=== PATIENT | female | born 1940 | race Caucasian/White ===

== ENCOUNTER 2018-01-22 16:02 | Inpatient (IN) ==
[2018-01-22] MEDS ORDERED: LACTATED RINGERS 1,000 ML IV ONE ×3 (16:13→18:13)
--- NOTE | 2018-01-22 16:18 | Emergency Department Note ---
General Adult HPI - General Chief complaint: Weakness Stated complaint: Fever, weakness, elevated BG Time Seen by Provider: 01/22/18 16:13 Source: patient Mode of arrival: EMS - History of Present Illness HPI Narrative: Patient has felt very weak with chills and low-grade temperature today. Denies nausea vomiting diarrhea cough or abdominal pain. - Related Data Home Medications Medication Instructions Recorded Confirmed Insulin Detemir [Levemir] 6 unit SQ HS 08/02/16 01/22/18 Pregabalin [Lyrica] 75 mg PO DAILY 08/02/16 01/22/18 glipiZIDE [Glucotrol] 5 mg PO BIDAC 08/02/16 01/22/18 metFORMIN HCL [Glumetza] 1,000 mg PO BID 08/02/16 01/22/18 Omeprazole [PriLOSEC] 20 mg PO DAILY 01/22/18 01/22/18 Allergies Allergy/AdvReac Type Severity Reaction Status Date / Time diphenhydramine AdvReac Intermediate Itching Verified 01/22/18 16:08 [From Benadryl] levofloxacin [From Levaquin] AdvReac Mild Confusion Verified 01/22/18 16:08 Sulfa (Sulfonamide AdvReac Mild ITCHING Verified 01/22/18 16:08 Antibiotics) [SULFA (SULFONAMIDE ANTIBIOTICS)] Review of Systems All systems ED: reviewed and negative except as stated. Past Medical History - Past Medical History [facility] Narrative: Medical History Cellulitis (Acute) Diabetic Charcot's foot (Acute) Diabetic ulcer of foot with fat layer exposed (Acute) Diabetic ulcer of foot with necrosis of muscle (Acute) Diabetic infection of left foot (Acute) Osteomyelitis of ankle or foot (Acute) Medical history: Reports: DM Surgical history ED: Reports: CHRISTOPHER/BSO, other (lumpectomy) - Social History smoking status: Never smoker Alcohol use: Reports: None Physical Exam Limitations: no limitations General appearance: alert Head: atraumatic Eye: Present: normal appearance ENT: normal exam Neck: Present: normal inspection Chest: Present: normal inspection Respiratory: Present: normal lung sounds bilaterally Cardiovascular: Present: regular rate, normal rhythm, normal heart sounds Abdominal: Present: soft. Absent: distention, tenderness Neurological: Present: alert Psychiatric: Present: normal affect, normal mood Skin: Present: warm, dry, intact Course Vital Signs Temperature 99.4 F H 01/22/18 16:03 Pulse Rate 110 H 01/22/18 16:03 Respiratory Rate 20 01/22/18 16:03 Blood Pressure 133/73 01/22/18 16:03 Pulse Oximetry (%) 96 01/22/18 16:03 Temperature 102.5 F H 01/23/18 06:02 Pulse Rate 104 H 01/23/18 06:02 Respiratory Rate 23 H 01/23/18 06:02 Blood Pressure 109/65 01/23/18 06:01 Pulse Oximetry (%) 94 01/23/18 06:02 Medical Decision Making - MDM Narrative Medical decision making narrative: This patient is worrisome for sepsis syndrome and will be admitted to the hospital. We did start antibiotics on her and did blood cultures. - Lab Data Lab results reviewed: Yes I reviewed the patient's lab results. Result diagrams: 01/23/18 03:45 01/22/18 19:48 Lab Results 01/22/18 01/22/18 01/22/18 Range/Units 16:27 16:27 16:27 WBC 8.7 (4.5-11.0) K/mcL RBC 4.69 (4.00-5.20) M/mcL Hgb 11.8 L (12.0-15.0) g/dL Hct 36.0 (36.0-48.0) % MCV 76.8 L (80.0-100.0) fL MCH 25.2 L (26.0-34.0) pg MCHC 32.8 (31.0-36.0) g/dL RDW 18.5 H (11.5-14.5) % Plt Count 120 L (140-440) K/mcL MPV 9.9 (7.4-10.4) fL Total Counted 100 Seg Neutrophils % 50 (38-78) % Band Neutrophils % 40 H (0-10) % Lymphocytes % 6 L (15-49) % Monocytes % (Manual) 4 (1-12) % WBC Morphology Abnorm A (NORMAL) Dohle Bodies 1+ A (NONE SEEN) Platelet Estimate Decreased (NORMAL) RBC Morphology Abnorm A (NORMAL) Anisocytosis 1+ A (NONE SEEN) Microcytosis 1+ A (NONE SEEN) VBG Lactic Acid (0.5-2.2) mmol/L Sodium 131 L (133-145) mmol/L Potassium 3.6 (3.3-5.1) mmol/L Chloride 88 L (96-108) mmol/L Carbon Dioxide 22 (22-30) mmol/L Anion Gap 21.0 H (8-16) BUN 25 H (8-23) mg/dl Creatinine 1.3 H (0.6-1.1) mg/dl GFR Calculation 40 Glucose 441 H (70-105) mg/dL Hemoglobin A1c (4.0-6.0) % HGB Estim Average Glucose mg/dL Calcium 8.9 (8.6-10.4) mg/dl Total Bilirubin 0.7 (0.0-1.0) mg/dL AST 86 H (0-37) U/l ALT 51 H (0-40) U/l Alkaline Phosphatase 100 (39-117) U/L Total Creatine Kinase (24-170) IU/L Total Protein 7.0 (5.9-8.4) gm/dL Albumin 3.9 (3.2-5.2) gm/dL Globulin 3.1 (2.2-3.7) gm/dL Albumin/Globulin Ratio 1.3 (1.0-2.3) Beta-Hydroxybutyrate 2.03 H (< 0.27) mmol/L Urine Color Urine Appearance Urine pH (5.0-9.0) Ur Specific Chaplin (1.000-1.035) Urine Protein (NEG) mg/dL Urine Glucose (UA) (NEG) mg/dL Urine Ketones (NEG) mg/dL Urine Occult Blood (<0.03) mg/dL Urine Nitrate (NEG) Urine Bilirubin (NEG) mg/dL Urine Urobilinogen (NEG) mg/dL Ur Leukocyte Esterase (NEG) /uL Urine RBC (0-1) /hpf Urine WBC (0-4) /hpf Ur Squamous Epith Cells (0-4) /hpf Ur Transition Epith Cell (0-2) /hpf Amorphous Crystals (0) /hpf Urine Bacteria (0) /hpf Hyaline Casts (0-2) /lpf Urine Mucus (0) /hpf Ur Culture Indicated? Influenza A (Rapid) Influenza B (Rapid) 01/22/18 01/22/18 01/22/18 Range/Units 16:27 16:27 16:30 WBC (4.5-11.0) K/mcL RBC (4.00-5.20) M/mcL Hgb (12.0-15.0) g/dL Hct (36.0-48.0) % MCV (80.0-100.0) fL MCH (26.0-34.0) pg MCHC (31.0-36.0) g/dL RDW (11.5-14.5) % Plt Count (140-440) K/mcL MPV (7.4-10.4) fL Total Counted Seg Neutrophils % (38-78) % Band Neutrophils % (0-10) % Lymphocytes % (15-49) % Monocytes % (Manual) (1-12) % WBC Morphology (NORMAL) Dohle Bodies (NONE SEEN) Platelet Estimate (NORMAL) RBC Morphology (NORMAL) Anisocytosis (NONE SEEN) Microcytosis (NONE SEEN) VBG Lactic Acid 6.7 H* (0.5-2.2) mmol/L Sodium (133-145) mmol/L Potassium (3.3-5.1) mmol/L Chloride (96-108) mmol/L Carbon Dioxide (22-30) mmol/L Anion Gap (8-16) BUN (8-23) mg/dl Creatinine (0.6-1.1) mg/dl GFR Calculation Glucose (70-105) mg/dL Hemoglobin A1c 8.5 H (4.0-6.0) % HGB Estim Average Glucose 197 mg/dL Calcium (8.6-10.4) mg/dl Total Bilirubin (0.0-1.0) mg/dL AST (0-37) U/l ALT (0-40) U/l Alkaline Phosphatase (39-117) U/L Total Creatine Kinase 2705 H (24-170) IU/L Total Protein (5.9-8.4) gm/dL Albumin (3.2-5.2) gm/dL Globulin (2.2-3.7) gm/dL Albumin/Globulin Ratio (1.0-2.3) Beta-Hydroxybutyrate (< 0.27) mmol/L Urine Color Urine Appearance Urine pH (5.0-9.0) Ur Specific Chaplin (1.000-1.035) Urine Protein (NEG) mg/dL Urine Glucose (UA) (NEG) mg/dL Urine Ketones (NEG) mg/dL Urine Occult Blood (<0.03) mg/dL Urine Nitrate (NEG) Urine Bilirubin (NEG) mg/dL Urine Urobilinogen (NEG) mg/dL Ur Leukocyte Esterase (NEG) /uL Urine RBC (0-1) /hpf Urine WBC (0-4) /hpf Ur Squamous Epith Cells (0-4) /hpf Ur Transition Epith Cell (0-2) /hpf Amorphous Crystals (0) /hpf Urine Bacteria (0) /hpf Hyaline Casts (0-2) /lpf Urine Mucus (0) /hpf Ur Culture Indicated? Influenza A (Rapid) Influenza B (Rapid) 01/22/18 01/22/18 Range/Units 16:30 16:36 WBC (4.5-11.0) K/mcL RBC (4.00-5.20) M/mcL Hgb (12.0-15.0) g/dL Hct (36.0-48.0) % MCV (80.0-100.0) fL MCH (26.0-34.0) pg MCHC (31.0-36.0) g/dL RDW (11.5-14.5) % Plt Count (140-440) K/mcL MPV (7.4-10.4) fL Total Counted Seg Neutrophils % (38-78) % Band Neutrophils % (0-10) % Lymphocytes % (15-49) % Monocytes % (Manual) (1-12) % WBC Morphology (NORMAL) Dohle Bodies (NONE SEEN) Platelet Estimate (NORMAL) RBC Morphology (NORMAL) Anisocytosis (NONE SEEN) Microcytosis (NONE SEEN) VBG Lactic Acid (0.5-2.2) mmol/L Sodium (133-145) mmol/L Potassium (3.3-5.1) mmol/L Chloride (96-108) mmol/L Carbon Dioxide (22-30) mmol/L Anion Gap (8-16) BUN (8-23) mg/dl Creatinine (0.6-1.1) mg/dl GFR Calculation Glucose (70-105) mg/dL Hemoglobin A1c (4.0-6.0) % HGB Estim Average Glucose mg/dL Calcium (8.6-10.4) mg/dl Total Bilirubin (0.0-1.0) mg/dL AST (0-37) U/l ALT (0-40) U/l Alkaline Phosphatase (39-117) U/L Total Creatine Kinase (24-170) IU/L Total Protein (5.9-8.4) gm/dL Albumin (3.2-5.2) gm/dL Globulin (2.2-3.7) gm/dL Albumin/Globulin Ratio (1.0-2.3) Beta-Hydroxybutyrate (< 0.27) mmol/L Urine Color Yellow Urine Appearance Hazy Urine pH 5.0 (5.0-9.0) Ur Specific Chaplin 1.023 (1.000-1.035) Urine Protein 30 A (NEG) mg/dL Urine Glucose (UA) >=500 A (NEG) mg/dL Urine Ketones 20 A (NEG) mg/dL Urine Occult Blood >=1.0 A (<0.03) mg/dL Urine Nitrate Neg (NEG) Urine Bilirubin Neg (NEG) mg/dL Urine Urobilinogen Neg (NEG) mg/dL Ur Leukocyte Esterase 25 A (NEG) /uL Urine RBC 2 H (0-1) /hpf Urine WBC 12 H (0-4) /hpf Ur Squamous Epith Cells 1 (0-4) /hpf Ur Transition Epith Cell 1 (0-2) /hpf Amorphous Crystals Few A (0) /hpf Urine Bacteria 0 (0) /hpf Hyaline Casts 2 (0-2) /lpf Urine Mucus Few (0) /hpf Ur Culture Indicated? Yes Influenza A (Rapid) Presumed negative Influenza B (Rapid) Presumed negative - Radiology Data Radiology results reviewed: Yes I reviewed the patient's radiology results. Disposition Pt seen by LAUNDRY AGENT/PA only: No Clinical Impression: Sepsis Disposition: Xfer As Inpt ([facility]) Condition: Undetermined
[2018-01-22 16:50] LABS: Mean Cell Volume 76.8 fL (80.0-100.0); Mean Corpuscular HGB Conc 32.8 g/dL (31.0-36.0); Mean Corpuscular Hemoglobin 25.2 pg (26.0-34.0); Platelet Count 120 K/mcL (140-440); RBC 4.69 M/mcL (4.00-5.20); Red Cell Distribution Width 18.5 % (11.5-14.5)
[2018-01-22] MEDS ORDERED: INSULIN REGULAR, HUMAN 1 UNIT/0.01 ML UNIT IV ONE ×2 (17:06→20:50)
[2018-01-22 17:10] LABS: ALT/SGPT 51 U/l (0-40); Albumin 3.9 gm/dL (3.2-5.2); Albumin/Globulin Ratio 1.3 (1.0-2.3); Alkaline Phosphatase 100 U/L (39-117); Blood Urea Nitrogen 25 mg/dl (8-23)
[2018-01-22] MEDS ORDERED: cefTRIAXone 1 GM VIAL IV ONE (17:26)
[2018-01-22] MEDS ORDERED: LEVOFLOXACIN 750 MG/150 ML BAG IV ONE (17:26)
[2018-01-22 17:30] LABS: Appearance,Urine HAZY; Bacteria,Urine 0 /hpf (0); Bilirubin,Urine NEG (NEG); Color,Urine YELLOW; Glucose,Urine (UA) >=500 mg/dL (NEG); Leukocyte Esterase,Urine 25 /uL (NEG); Mucus,Urine FEW /hpf (0); Protein,Urine 30 mg/dL (NEG); Specific Gravity,Urine 1.023 (1.000-1.035); Urine Amorphous Crystals FEW /hpf (0); Urine Blood >=1.0 mg/dL (<0.03); Urine Hyaline Cast 2 /lpf (0-2); Urine RBC 2 /hpf (0-1); Urine Squamous Epithelial Cell 1 /hpf (0-4); Urine Transitional Epi Cells 1 /hpf (0-2); Urine WBC 12 /hpf (0-4); Urobilinogen,Urine NEG (NEG)
[2018-01-22 17:31] LABS: Band Neutrophils % 40 % (0-10); Dohle Bodies 1+ (NONE SEEN); Lymphocytes % 6 % (15-49); Monocytes % (Manual) 4 % (1-12); Platelet Estimate DECREASED (NORMAL); Segmented Neutrophils % 50 % (38-78)
[2018-01-22 17:32] LABS: Anisocytosis 1+ (NONE SEEN); RBC Morphology ABNORM (NORMAL)
[2018-01-22] MEDS ORDERED: DOXYCYCLINE 100 MG in DEXTROSE 5% IN WATER 100 ML IV ONE (17:32)
[2018-01-22] MEDS ORDERED: DOXYCYCLINE 100 MG VIAL ONE (17:48)
[2018-01-22] MEDS ORDERED: ACETAMINOPHEN 325 MG TABLET PO ONE (17:49)
[2018-01-22 17:51] LABS: Beta Hydroxybutyrate 2.03 mmol/L (< 0.27)
[2018-01-22] MEDS ORDERED: VANCOMYCIN 1,000 MG in 0.9 % SODIUM CHLORIDE 250 ML IV ONE (18:11)
--- NOTE | 2018-01-22 18:19 | XRay Report ---
CLINICAL INFORMATION: Sepsis COMPARISON: 08/03/2016 FINDINGS: Moderate size hiatal hernia is unchanged. Mild cardiomegaly is also stable. Mediastinum is otherwise normal. Pulmonary vessels are unremarkable. There is minor bibasilar atelectasis, but no tamara infiltrates noted. No effusions IMPRESSION: Moderate cardiomegaly - stable Moderate size hiatal hernia - stable. Minor bibasilar atelectasis Interpreted and Authenticated by: Dash Morel 01/22/18
[2018-01-22] MEDS ORDERED: ACETAMINOPHEN 1,000 MG/100 ML BOTTLE IV PRN (19:07)
--- NOTE | 2018-01-22 19:18 | Internal Med History&Physical ---
Medical - H&P: [facility] Patient information: Note initiated : 01/22/18 at 7:15 pm Service Date, if different from initiated Date: [] Patient: Xenia Morgan a 77 y/o F admitted on for Fever, weakness, elevated BG. Chief Complaint: [weakness and general malaise] History of present illness: Ms. Morgan is a 77 year old F, with a history of DM, who presented by way of EMS with general malaise and after she found herself on the floor this morning, unable to get up on her own. She had been feeling sick for the last 3-4 days without any specific symptoms. She denies coughing, abdominal pain, dysuria, nausea, vomiting or change in bowel habits. She has a swelling and redness in the mid L-foot, which had been I&D'd before. Patient says that it has been a longstanding problem, and hasn't notice any change in swelling or pain. Patient is ill-appearing and somnolent. Unable to provide details. Doesn't remember how she fell and how long she had been on the floor. ED: CXR, blood cultures IVF Received Vanco, Doxycycline and Ceftriaxone - Constitutional Constitutional: Present: fatigue, lethargy, weakness - Cardiovascular Cardiovascular: Absent: chest pain, orthopnea, pedal edema - Respiratory Respiratory: Absent: cough, wheezing - Gastrointestinal Gastrointestinal: Absent: abdominal pain, diarrhea, heartburn - Genitourinary Genitourinary: Absent: urinary frequency - Integumentary Integumentary: Present: swelling (and redness L mid-foot) Medical - H&P: PMH Medical history: Medical History Diabetes Mellitus type 2 HTN HL Neuropathy Breastcancer, S/P lumpectomy R 2010 Uterine cancer Ischemic colitis Cellulitis (Acute) Diabetic Charcot's foot (Acute) Diabetic ulcer of foot with fat layer exposed (Acute) Diabetic ulcer of foot with necrosis of muscle (Acute) Diabetic infection of left foot (Acute) Osteomyelitis of ankle or foot (Acute) Surgical history: I&D left foot with biopsies Jul 2016 S/P lumpectomy for R breast cancer 2010 S/P amputation R first toe in 2013 for osteomyelitis Hysterectomy and salpingo-oophorectomy for uterine cancer 2002 Pertinent family history: Lives alone of cancer Has two children Smoking status: Never smoker Drug use: none Alcohol use: none Medical - H&P: Meds Home Medications Medication Instructions Recorded Confirmed Type Insulin Detemir [Levemir] 6 unit SQ HS 08/02/16 01/22/18 History Pregabalin [Lyrica] 75 mg PO DAILY 08/02/16 01/22/18 History glipiZIDE [Glucotrol] 5 mg PO BIDAC 08/02/16 01/22/18 History metFORMIN HCL [Glumetza] 1,000 mg PO BID 08/02/16 01/22/18 History Omeprazole [PriLOSEC] 20 mg PO DAILY 01/22/18 01/22/18 History Allergies Allergy/AdvReac Type Severity Reaction Status Date / Time diphenhydramine AdvReac Intermediate Itching Verified 01/22/18 16:08 [From Benadryl] levofloxacin [From Levaquin] AdvReac Mild Confusion Verified 01/22/18 16:08 Sulfa (Sulfonamide AdvReac Mild ITCHING Verified 01/22/18 16:08 Antibiotics) [SULFA (SULFONAMIDE ANTIBIOTICS)] Medical - H&P: Exam - Constitutional Vitals: Temp Pulse Resp BP Pulse Ox 104.0 F H 119 H 21 124/51 97 01/22/18 18:26 01/22/18 18:46 01/22/18 18:46 01/22/18 18:46 01/22/18 18:55 General appearance: mild distress (ill-appearing, somnolent) Medical - H&P: Reslt - Labs CBC & Chem 7: 01/22/18 16:27 01/22/18 16:27 Labs: Short CBC 01/22/18 Range/Units 16:27 WBC 8.7 (4.5-11.0) K/mcL Hgb 11.8 L (12.0-15.0) g/dL Hct 36.0 (36.0-48.0) % Plt Count 120 L (140-440) K/mcL BMP 01/22/18 16:27 Sodium 131 L Potassium 3.6 Chloride 88 L Carbon Dioxide 22 BUN 25 H Creatinine 1.3 H Glucose 441 H Calcium 8.9 Liver Function 01/22/18 Range/Units 16:27 Total Bilirubin 0.7 (0.0-1.0) mg/dL AST 86 H (0-37) U/l ALT 51 H (0-40) U/l Alkaline Phosphatase 100 (39-117) U/L Albumin 3.9 (3.2-5.2) gm/dL Urine 01/22/18 Range/Units 16:36 Urine Color Yellow Urine Appearance Hazy Urine pH 5.0 (5.0-9.0) Ur Specific Minerva 1.023 (1.000-1.035) Urine Protein 30 A (NEG) mg/dL Urine Glucose (UA) >=500 A (NEG) mg/dL Medical - H&P: A/P - Narrative A/P Narrative: 77-year-old with following problems: ACUTE: - Sepsis, likely from infected L foot - L mid-foot swelling and erythema Recurrent infections since 2016 (as per record) Last admission at [facility] 2015 - Diabetic Ketoacidosis CHRONIC: - Type 2 IDDM - Neuropathy - Hx of ischemic colitis - hx of breast cancer 2010 PLAN: - empiric Vancomycin and Ertapenem - Insulin gtt - IVF - MRI foot in am - consult podiatry in am - DVT prophylaxis: Lovenox Code status: FULL
[2018-01-22] MEDS ORDERED: ONDANSETRON 4 MG/2 ML VIAL IV PRN (19:26)
[2018-01-22] MEDS ORDERED: INSULIN REGULAR, HUMAN 50 UNIT in 0.9 % SODIUM CHLORIDE 100 ML IV SCH (19:26)
[2018-01-22] MEDS ORDERED: POTASSIUM CHLORIDE 20 MEQ in DEXTROSE 5% IN WATER 250 ML IV ONE (19:26)
[2018-01-22] MEDS ORDERED: VANCOMYCIN PER PHARMACY IV ONE (19:26)
[2018-01-22] MEDS ORDERED: POTASSIUM CHLORIDE 20 MEQ/10 ML VIAL IV ONE ×2 (20:01→22:25)
[2018-01-22] MEDS: 0.9 % SODIUM CHLORIDE 1,000 ML IV SCH (20:03)
[2018-01-22] MEDS: ERTAPENEM 1 GM in 0.9 % SODIUM CHLORIDE 50 ML IV SCH (20:04)
[2018-01-22] MEDS: ACETAMINOPHEN 1,000 MG/100 ML BOTTLE IV PRN (20:12)
[2018-01-22 20:47] LABS: Blood Urea Nitrogen 24 mg/dl (8-23); C-Reactive Protein 26.1 mg/dl (0.0-0.8)
[2018-01-22] MEDS ORDERED: DEXTROSE 31 GM ORAL.SUSP PO PRN (20:52)
[2018-01-22] MEDS ORDERED: DEXTROSE 50% 50 ML VIAL IV PRN (20:52)
[2018-01-22] MEDS ORDERED: INSULIN GLARGINE, HUMAN 1 UNIT/0.01 ML SQ SCH (21:00)
[2018-01-22] MEDS ORDERED: POTASSIUM CHLORIDE 40 MEQ in DEXTROSE 5% IN WATER 500 ML IV ONE (21:52)
[2018-01-22] MEDS: DOCUSATE SODIUM 100 MG CAPSULE PO SCH (22:09)
[2018-01-22] MEDS: 0.9 % SODIUM CHLORIDE 10 ML SYRINGE IV SCH (22:20)
[2018-01-22] MEDS ORDERED: 0.9 % SODIUM CHLORIDE 250 ML IV ONE (23:20)
[2018-01-23 00:04] LABS: Hemoglobin A1C 8.5 % HGB (4.0-6.0)
[2018-01-23] MEDS: INSULIN LISPRO 1 UNIT/0.01 ML UNIT SQ SCH ×6 (00:50→20:56)
[2018-01-23] MEDS: 0.9 % SODIUM CHLORIDE 1,000 ML IV SCH ×6 (03:07→22:27)
[2018-01-23] MEDS: ACETAMINOPHEN 1,000 MG/100 ML BOTTLE IV PRN ×2 (03:50→17:52)
[2018-01-23] MEDS: 0.9 % SODIUM CHLORIDE 10 ML SYRINGE IV SCH ×3 (05:39→21:48)
[2018-01-23] MEDS ORDERED: VANCOMYCIN PER PHARMACY IV SCH (06:45)
[2018-01-23 06:46] LABS: Mean Cell Volume 77.1 fL (80.0-100.0); Mean Corpuscular HGB Conc 32.9 g/dL (31.0-36.0); Mean Corpuscular Hemoglobin 25.4 pg (26.0-34.0); Platelet Count 81 K/mcL (140-440); RBC 3.99 M/mcL (4.00-5.20); Red Cell Distribution Width 18.2 % (11.5-14.5)
[2018-01-23] MEDS ORDERED: MAGNESIUM SULFATE 8.12 MEQ/2 ML VIAL IV ONE (07:05)
[2018-01-23] MEDS ORDERED: MAGNESIUM SULFATE 32.48 MEQ in DEXTROSE 5% IN WATER 100 ML IV ONE (07:15)
[2018-01-23 07:36] LABS: ALT/SGPT 51 U/l (0-40); Albumin 2.9 gm/dL (3.2-5.2); Albumin/Globulin Ratio 1.1 (1.0-2.3); Alkaline Phosphatase 83 U/L (39-117); Bilirubin,Direct < 0.2 mg/dL (0.0-0.3); Blood Urea Nitrogen 22 mg/dl (8-23); Gamma Glutamyl Transpeptidase 16 U/L (5-36); Uric Acid 5.3 mg/dL (2.5-8.0)
[2018-01-23 08:07] LABS: Anisocytosis 1+ (NONE SEEN); Band Neutrophils % 47 % (0-10); Hypochromasia 1+ (NONE SEEN); Lymphocytes % 6 % (15-49); Monocytes % (Manual) 2 % (1-12); Platelet Estimate DECREASED (NORMAL); RBC Morphology ABNORM (NORMAL); Segmented Neutrophils % 45 % (38-78)
[2018-01-23] MEDS: POTASSIUM CHLORIDE 20 MEQ TABLET PO SCH ×2 (08:54→17:49)
[2018-01-23] MEDS: VANCOMYCIN 1,000 MG in 0.9 % SODIUM CHLORIDE 250 ML IV SCH (09:42)
[2018-01-23] MEDS: PREGABALIN 75 MG CAPSULE PO SCH ×3 (09:42→21:48)
[2018-01-23] MEDS: ERTAPENEM 1 GM in 0.9 % SODIUM CHLORIDE 50 ML IV SCH (09:43)
[2018-01-23] MEDS: DOCUSATE SODIUM 100 MG CAPSULE PO SCH ×3 (09:45→20:56)
[2018-01-23] MEDS: PANTOPRAZOLE 40 MG VIAL IV SCH (09:46)
[2018-01-23] MEDS: ENOXAPARIN 40 MG/0.4 ML SYRINGE SQ SCH (09:46)
--- NOTE | 2018-01-23 15:27 | Internal Med Progress Note ---
Medical - PN: Subj Patient information: Note initiated : 01/23/18 at 3:14 pm Service Date, if different from initiated Date: [] Patient: Xenia Morgan 77 y/o F admitted on 01/22/18 for Fever,Weakness, Elevated BG/Sepsis,Infected L Foot. Interval history: 01/22: Admitted with the following problems: ACUTE: - Sepsis, likely from infected L foot - L mid-foot swelling and erythema Recurrent infections since 2016 (as per record) Last admission at [facility] 2016 - Diabetic Ketoacidosis CHRONIC: - Type 2 IDDM - Neuropathy - Hx of ischemic colitis - hx of breast cancer 2010 PLAN: - empiric Vancomycin and Ertapenem - Insulin gtt - IVF - MRI foot in am - consult podiatry in am - DVT prophylaxis: Lovenox 01/23: T max 101 SBP > 100, but tachycardic 110's Patient appears ill. D/w dr Donis Escobar (podiatry): recommended removal of sutures. [place] and unable to see patient. MRI foot; c/w osteomyelitis. Previous wound culture (2015) showed strep viridans, enterococcus and coag neg staph. Will switch Ertapenem with Zosyn - Constitutional Vitals: Vital Signs Temp Pulse Resp BP Pulse Ox 100.4 F H 90 25 H 104/55 98 01/23/18 14:05 01/23/18 14:05 01/23/18 14:05 01/23/18 14:01 01/23/18 14:05 Period Temp Pulse Resp BP Sys/Guzman Pulse Ox Last 24 Hr 98.3 F-104.0 F 83-143 0-34 70-174/41-108 90-100 Intake and Output 01/23/18 01/23/18 01/23/18 05:59 13:59 21:59 Intake Total 1350 / 1350 1050 / 1050 Output Total 1240 / 1240 630 / 630 0 / 0 Balance 110 / 110 420 / 420 0 / 0 Weight 179 lb 8 oz Patient Weight 01/24/18 05:59 Weight 179 lb 8 oz Intake & Output: Intake & Output 01/23/18 01/23/18 01/23/18 05:59 13:59 21:59 Intake Total 1350 / 1350 1050 / 1050 Output Total 1240 / 1240 630 / 630 0 / 0 Balance 110 / 110 420 / 420 0 / 0 Weight 179 lb 8 oz Intake: IV 1350 / 1350 1050 / 1050 Sodium Chloride 0.9% 1,000 ml @ 1000 / 1000 1000 / 1000 150 mls/hr IV .Q6H40M [facility] Rx#: [id number] Sodium Chloride 0.9% 250 ml @ 250 / 250 Wide Open IV BOLUS ONE Rx#: [id number] INVanz 1 GM In Sodium Chloride 50 / 50 0.9% 50 ml @ 100 mls/hr IV Q24H [facility] Rx#:[id number] Output: Urine Catheter Amount 1240 / 1240 630 / 630 0 / 0 Other: Meal Lunch Percent of Meal Consumed 25% Feeding Ability Assist with Tray Set Up Exam: Ill -appearing - Respiratory Respiratory exam: Present: normal respiratory exam - Cardiovascular Cardiovascular exam: Present: normal rate and rhythm - GI/Abdominal GI/Abdominal exam: Present: normal bowel sounds, soft (Redness and swelling L mid foot. No drainage) Medical - PN: Obj Da - Labs CBC & Chem 7: 01/23/18 03:45 01/23/18 07:00 Labs: Abnormal Lab Results 01/23/18 01/23/18 01/23/18 07:00 03:45 03:45 RBC Hgb Hct MCV MCH RDW Plt Count MPV Band Neutrophils % Lymphocytes % WBC Morphology Dohle Bodies RBC Morphology Hypochromasia Anisocytosis Microcytosis VBG Lactic Acid Sodium Potassium Chloride Carbon Dioxide 20 L Anion Gap BUN Creatinine Glucose 271 H Hemoglobin A1c Calcium 8.0 L Phosphorus 2.0 L Magnesium 1.3 L AST 117 H ALT 51 H Lactate Dehydrogenase 550 H Total Creatine Kinase 3735 H C-Reactive Protein Total Protein 5.5 L Albumin 2.9 L Beta-Hydroxybutyrate 0.49 H Urine Protein Urine Glucose (UA) Urine Ketones Urine Occult Blood Ur Leukocyte Esterase Urine RBC Urine WBC Amorphous Crystals 01/23/18 01/23/18 01/22/18 03:45 03:45 19:48 RBC 3.99 L Hgb 10.1 L Hct 30.7 L MCV 77.1 L MCH 25.4 L RDW 18.2 H Plt Count 81 L MPV 10.5 H Band Neutrophils % 47 H Lymphocytes % 6 L WBC Morphology Dohle Bodies RBC Morphology Abnorm A Hypochromasia 1+ A Anisocytosis 1+ A Microcytosis 1+ A VBG Lactic Acid Sodium 132 L Potassium 3.0 L Chloride 93 L Carbon Dioxide Anion Gap 17.0 H BUN 24 H Creatinine 1.2 H Glucose 322 H Hemoglobin A1c Calcium 8.2 L Phosphorus Magnesium 1.4 L AST ALT Lactate Dehydrogenase Total Creatine Kinase C-Reactive Protein 26.1 H Total Protein Albumin Beta-Hydroxybutyrate Urine Protein Urine Glucose (UA) Urine Ketones Urine Occult Blood Ur Leukocyte Esterase Urine RBC Urine WBC Amorphous Crystals 01/22/18 01/22/18 01/22/18 16:36 16:30 16:27 RBC Hgb Hct MCV MCH RDW Plt Count MPV Band Neutrophils % Lymphocytes % WBC Morphology Dohle Bodies RBC Morphology Hypochromasia Anisocytosis Microcytosis VBG Lactic Acid 6.7 H* Sodium Potassium Chloride Carbon Dioxide Anion Gap BUN Creatinine Glucose Hemoglobin A1c 8.5 H Calcium Phosphorus Magnesium AST ALT Lactate Dehydrogenase Total Creatine Kinase C-Reactive Protein Total Protein Albumin Beta-Hydroxybutyrate Urine Protein 30 A Urine Glucose (UA) >=500 A Urine Ketones 20 A Urine Occult Blood >=1.0 A Ur Leukocyte Esterase 25 A Urine RBC 2 H Urine WBC 12 H Amorphous Crystals Few A 01/22/18 01/22/18 01/22/18 16:27 16:27 16:27 RBC Hgb Hct MCV MCH RDW Plt Count MPV Band Neutrophils % Lymphocytes % WBC Morphology Dohle Bodies RBC Morphology Hypochromasia Anisocytosis Microcytosis VBG Lactic Acid Sodium 131 L Potassium Chloride 88 L Carbon Dioxide Anion Gap 21.0 H BUN 25 H Creatinine 1.3 H Glucose 441 H Hemoglobin A1c Calcium Phosphorus Magnesium AST 86 H ALT 51 H Lactate Dehydrogenase Total Creatine Kinase 2705 H C-Reactive Protein Total Protein Albumin Beta-Hydroxybutyrate 2.03 H Urine Protein Urine Glucose (UA) Urine Ketones Urine Occult Blood Ur Leukocyte Esterase Urine RBC Urine WBC Amorphous Crystals 01/22/18 16:27 RBC Hgb 11.8 L Hct MCV 76.8 L MCH 25.2 L RDW 18.5 H Plt Count 120 L MPV Band Neutrophils % 40 H Lymphocytes % 6 L WBC Morphology Abnorm A Dohle Bodies 1+ A RBC Morphology Abnorm A Hypochromasia Anisocytosis 1+ A Microcytosis 1+ A VBG Lactic Acid Sodium Potassium Chloride Carbon Dioxide Anion Gap BUN Creatinine Glucose Hemoglobin A1c Calcium Phosphorus Magnesium AST ALT Lactate Dehydrogenase Total Creatine Kinase C-Reactive Protein Total Protein Albumin Beta-Hydroxybutyrate Urine Protein Urine Glucose (UA) Urine Ketones Urine Occult Blood Ur Leukocyte Esterase Urine RBC Urine WBC Amorphous Crystals Meds: Medications Dextrose (Dextrose 50%) 0 ml IV UD PRN PRN Reason: Hypoglycemia Diagnostic Test (Pha) (Accu-Chek) 1 each FS ACHS [facility] Last Admin: 01/23/18 11:39 Dose: 1 each Docusate Sodium (Colace) 100 mg PO BID [facility] Last Admin: 01/23/18 10:11 Dose: Not Given Enoxaparin Sodium (Lovenox) 40 mg SQ DAILY [facility] Last Admin: 01/23/18 09:46 Dose: 40 mg Glucose (Insta-Glucose) 15 gm PO PRN PRN PRN Reason: Hypoglycemia Ertapenem 1 gm/ Sodium (Chloride) 50 mls @ 100 mls/hr IV Q24H [facility] Last Infusion: 01/23/18 10:15 Dose: Infused Acetaminophen (Ofirmev) 1,000 mg in 100 mls @ 200 mls/hr IV Q6HP PRN PRN Reason: PAIN/FEVER > 101 Last Infusion: 01/23/18 04:20 Dose: Infused Sodium Chloride (Sodium Chloride 0.9%) 1,000 mls @ 150 mls/hr IV .Q6H40M [facility] Last Admin: 01/23/18 14:05 Dose: Not Given Vancomycin HCl 1,000 mg/ (Sodium Chloride) 250 mls @ 250 mls/hr IV Q24H [facility] Last Admin: 01/23/18 09:42 Dose: 250 mls/hr Insulin Glargine (Lantus) 20 unit SQ HS [facility] Insulin Human Lispro (Humalog) 0 unit SQ Q4 [facility] PRN Reason: Protocol Last Admin: 01/23/18 12:41 Dose: 3 unit Ondansetron HCl (Zofran) 4 mg IV Q4-6HP PRN PRN Reason: Nausea And Vomiting Pantoprazole Sodium (Protonix) 40 mg IV DAILY [facility] Last Admin: 01/23/18 09:46 Dose: 40 mg Potassium Chloride (Kdur) 20 meq PO BIDCC [facility] Last Admin: 01/23/18 08:54 Dose: Not Given Pregabalin (Lyrica) 75 mg PO DAILY [facility] Last Admin: 01/23/18 10:15 Dose: Not Given Sodium Chloride (Saline Flush) 10 ml IV Q8 [facility] Last Admin: 01/23/18 14:07 Dose: 10 ml Vancomycin HCl (Vancomycin Per Pharmacy) 1 order IV UD [facility] Medical - PN: A/P - Time Spent With Patient Total time spent is greater than 50% in coordination of care (as documented) at patient's floor/unit and/or counseling patient: - Narrative A/P Narrative: A/P Narrative: 77-year-old with following problems: ACUTE: - Sepsis, likely from infected L foot Blood cultures: strep. Identification and sens pending. Grew enterococcus and post str in 2016. Not sens to imipenem 01/22: VAnco and Ertapenem 01/23: will switch to Vanco and Zosyn - L mid-foot swelling and erythema Recurrent infections since 2016 (as per record) Last admission at [facility] 01/23: d/w dr Chilango Escobar: remove sutures. [place] available for consult [place]. MRI confirms diagnosis of osteomyelitis. - Diabetic Ketoacidosis Improved BS control CHRONIC: - Type 2 IDDM - Neuropathy - Hx of ischemic colitis - hx of breast cancer 2010 Medical - PN: Qual - VTE Deep Vein Thrombosis/Pulmonary Embolism Present on Admission: No
--- NOTE | 2018-01-23 18:17 | Magnetic Resonance Report ---
CLINICAL INFORMATION: Osteomyelitis COMPARISON: For MRI from 1.5 years ago - 08/12/2016 TECHNIQUE: Exam is limited due to excessive patient motion uncooperation: Axial T1 proton density T2 sagittal T1 proton density and coronal density images were acquired FINDINGS: Since the prior study, the marrow signal within the fifth metatarsal, proximal fourth metatarsal, lateral cuboid and lateral cuneiform is normalized compatible with healing infection.. On today's examination, there is increased intramedullary signal within the distal tibia-fibula and throughout most of the talus suggesting additional foci of osteomyelitis. A large ankle effusion with a moderate moderate amount of debris has developed. There is a large amount of fluid within the tendon sheaths of the posterior tibialis, flexor digitorum and flexor hallucis tendons themselves appear normal however. There is loss of plantar arch from disruption of the spring ligament which is chronic Interval normalization of the signal within the proximal fourth metatarsal, fifth metatarsal, lateral cuboid and cuneiform suggesting healing infection in these regions. Scattered cysts present throughout the midfoot and proximal metatarsals - previously seen IMPRESSION: 1. Moderate increased intramedullary signal within the distal tibia, fibula and throughout most of the talus suggesting multifocal osteomyelitis. 2. New large ankle effusion effusion with scattered debris suggesting septic arthritis. 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
[2018-01-23] MEDS: PIPERACILLIN SODIUM/TAZOBACTAM 3.375 GM in DEXTROSE 5% IN WATER 50 ML IV SCH (20:25)
[2018-01-23 20:41] LABS: ABG Methemoglobin 0.3 % (0.4-1.5); VBG Base Excess -0.8 (-2.0-2.0); VBG HCO3 22.3 mmol/L (24.0-28.0); VBG Oxygen Saturation 94.8 % (40.0-70.0); VBG PCO2 31.3 mmHg (41.0-51.0); VBG PH 7.47 U (7.32-7.42); VBG PO2 105 mmHg (25-40); VBG Total CO2 23.3 mmol/L (25.0-29.0)
[2018-01-23] MEDS: INSULIN GLARGINE, HUMAN 1 UNIT/0.01 ML SQ SCH (20:55)
[2018-01-24] MEDS: PIPERACILLIN SODIUM/TAZOBACTAM 3.375 GM in DEXTROSE 5% IN WATER 50 ML IV SCH ×4 (00:13→17:39)
[2018-01-24] MEDS: INSULIN LISPRO 1 UNIT/0.01 ML UNIT SQ SCH ×7 (00:24→21:53)
[2018-01-24] MEDS: 0.9 % SODIUM CHLORIDE 1,000 ML IV SCH (05:16)
[2018-01-24] MEDS: 0.9 % SODIUM CHLORIDE 10 ML SYRINGE IV SCH ×3 (05:16→21:54)
[2018-01-24 06:16] LABS: ALT/SGPT 59 U/l (0-40); Albumin 2.7 gm/dL (3.2-5.2); Alkaline Phosphatase 82 U/L (39-117); Bilirubin,Direct < 0.2 mg/dL (0.0-0.3); Blood Urea Nitrogen 20 mg/dl (8-23); Gamma Glutamyl Transpeptidase 14 U/L (5-36); Uric Acid 3.4 mg/dL (2.5-8.0)
[2018-01-24 07:24] LABS: Mean Cell Volume 77.8 fL (80.0-100.0); Mean Corpuscular HGB Conc 32.5 g/dL (31.0-36.0); Mean Corpuscular Hemoglobin 25.3 pg (26.0-34.0); Platelet Count 80 K/mcL (140-440); RBC 4.28 M/mcL (4.00-5.20); Red Cell Distribution Width 18.6 % (11.5-14.5)
[2018-01-24 07:31] LABS: Anisocytosis 1+ (NONE SEEN); Band Neutrophils % 28 % (0-10); Hypochromasia 1+ (NONE SEEN); Lymphocytes % 4 % (15-49); Monocytes % (Manual) 6 % (1-12); Platelet Estimate DECREASED (NORMAL); RBC Morphology ABNORM (NORMAL); Segmented Neutrophils % 62 % (38-78)
[2018-01-24] MEDS: PREGABALIN 75 MG CAPSULE PO SCH (09:09)
[2018-01-24] MEDS: PANTOPRAZOLE 40 MG VIAL IV SCH (09:15)
[2018-01-24] MEDS: DOCUSATE SODIUM 100 MG CAPSULE PO SCH ×2 (09:15→21:53)
[2018-01-24] MEDS: POTASSIUM CHLORIDE 20 MEQ TABLET PO SCH ×2 (09:15→17:34)
[2018-01-24] MEDS: ENOXAPARIN 40 MG/0.4 ML SYRINGE SQ SCH (09:15)
[2018-01-24] MEDS: VANCOMYCIN 1,000 MG in 0.9 % SODIUM CHLORIDE 250 ML IV SCH ×3 (11:25→21:53)
[2018-01-24] MEDS: ACETAMINOPHEN 1,000 MG/100 ML BOTTLE IV PRN (17:34)
[2018-01-24] MEDS ORDERED: PANTOPRAZOLE 40 MG TABLET PO SCH (21:00)
[2018-01-24] MEDS ORDERED: PREGABALIN 75 MG CAPSULE PO SCH (21:00)
[2018-01-24] MEDS: INSULIN GLARGINE, HUMAN 1 UNIT/0.01 ML SQ SCH (21:52)
[2018-01-24] MEDS ORDERED: LORazepam 1 MG TABLET PO PRN (22:49)
[2018-01-24] MEDS ORDERED: LORazepam 1 MG TABLET ONE (23:00)
[2018-01-25] MEDS: PIPERACILLIN SODIUM/TAZOBACTAM 3.375 GM in DEXTROSE 5% IN WATER 50 ML IV SCH ×5 (00:07→17:14)
--- NOTE | 2018-01-25 00:28 | Internal Med Progress Note ---
Medical - PN: Subj Patient information: Note initiated : 01/25/18 at 12:23 am Service Date, if different from initiated Date: [01/24 at 11:00] Patient: Xenia Morgan 77 y/o F admitted on 01/22/18 for Fever,Weakness, Elevated BG/Sepsis,Infected L Foot. Chief Complaint: [general malaise and fever] Interval history: 01/22: Admitted with the following problems: ACUTE: - Sepsis, likely from infected L foot - L mid-foot swelling and erythema Recurrent infections since 2015 (as per record) Last admission at [facility] 2015 - Diabetic Ketoacidosis CHRONIC: - Type 2 IDDM - Neuropathy - Hx of ischemic colitis - hx of breast cancer 2010 PLAN: - empiric Vancomycin and Ertapenem - Insulin gtt - IVF - MRI foot in am - consult podiatry in am - DVT prophylaxis: Lovenox 01/23: T max 101 SBP > 100, but tachycardic 110's Patient appears ill. D/w dr Donis Escobar (podiatry): recommended removal of sutures. [place] and unable to see patient. MRI foot; c/w osteomyelitis. Previous wound culture (2015) showed strep viridans, enterococcus and coag neg staph. Will switch Ertapenem with Zosyn 01/24: Patient is still weak, but feeling better. Afebrile overnight. Still soft BP. Eating now. Appreciate Kendy Suarez help with debridement of L foot, and discussing case with dr Escobar. Case d/w Dru De Luna (ID): agrees with Vancomycin and Zosyn till identif and sens determined. - Constitutional Vitals: Vital Signs Temp Pulse Resp BP Pulse Ox 96.9 F L 80 24 H 111/56 95 01/24/18 21:52 01/25/18 00:01 01/25/18 00:01 01/25/18 00:01 01/25/18 00:01 Period Temp Pulse Resp BP Sys/Guzman Pulse Ox Last 24 Hr 96.9 F-102 F 80-114 20-34 84-131/53-93 88-99 Intake and Output 01/24/18 01/24/18 01/25/18 13:59 21:59 05:59 Intake Total 317 / 317 230 / 230 Output Total 285 / 285 325 / 325 260 / 260 Balance 32 / 32 -95 / -95 -260 / -260 Weight 188 lb 8 oz Patient Weight 01/25/18 05:59 Weight 188 lb 8 oz Intake & Output: Intake & Output 01/24/18 01/24/18 01/25/18 13:59 21:59 05:59 Intake Total 317 / 317 230 / 230 Output Total 285 / 285 325 / 325 260 / 260 Balance 32 / 32 -95 / -95 -260 / -260 Weight 188 lb 8 oz Intake: IV 317 / 317 50 / 50 Zosyn 3.375 gm In Dextrose 5% 67 / 67 50 / 50 in Water 50 ml @ 100 mls/hr IV Q6H [facility] Rx#:[id number] Vancomycin 1,000 mg In Sodium 250 / 250 Chloride 0.9% 250 ml @ 250 mls/ hr IV Q12H [facility] Rx#:[id number] Oral 180 / 180 Output: Urine Catheter Amount 285 / 285 325 / 325 260 / 260 Other: Meal Dinner Percent of Meal Consumed 25% Feeding Ability Assist with Tray Set Up General appearance: no acute distress - Respiratory Respiratory exam: Present: decreased breath sounds - Cardiovascular Cardiovascular exam: Present: normal rate and rhythm - GI/Abdominal GI/Abdominal exam: Present: normal bowel sounds, soft - Extremities Exam Additional comments: L foot less erythematous. Wound without drainage Medical - PN: Obj Da - Labs CBC & Chem 7: 01/24/18 03:55 01/24/18 03:55 Labs: Abnormal Lab Results 01/24/18 01/24/18 01/23/18 03:55 03:55 20:11 RBC Hgb 10.8 L Hct 33.3 L MCV 77.8 L MCH 25.3 L RDW 18.6 H Plt Count 80 L MPV 11.3 H Band Neutrophils % 28 H Lymphocytes % 4 L WBC Morphology Dohle Bodies RBC Morphology Abnorm A Hypochromasia 1+ A Anisocytosis 1+ A Microcytosis 1+ A ABG Methemoglobin 0.3 L VBG pH 7.47 H VBG pCO2 31.3 L VBG pO2 105 H VBG HCO3 22.3 L VBG Total CO2 23.3 L VBG O2 Saturation 94.8 H VBG Lactic Acid Carboxyhemoglobin 3.2 H Total Hemoglobin 9.5 L Sodium Potassium Chloride Carbon Dioxide Anion Gap BUN Creatinine Glucose 157 H Hemoglobin A1c Calcium 8.0 L Phosphorus 1.5 L Magnesium AST 103 H ALT 59 H Lactate Dehydrogenase 458 H Total Creatine Kinase C-Reactive Protein Total Protein 5.3 L Albumin 2.7 L Triglycerides 168 H Beta-Hydroxybutyrate Urine Protein Urine Glucose (UA) Urine Ketones Urine Occult Blood Ur Leukocyte Esterase Urine RBC Urine WBC Amorphous Crystals 01/23/18 01/23/18 01/23/18 07:00 03:45 03:45 RBC Hgb Hct MCV MCH RDW Plt Count MPV Band Neutrophils % Lymphocytes % WBC Morphology Dohle Bodies RBC Morphology Hypochromasia Anisocytosis Microcytosis ABG Methemoglobin VBG pH VBG pCO2 VBG pO2 VBG HCO3 VBG Total CO2 VBG O2 Saturation VBG Lactic Acid Carboxyhemoglobin Total Hemoglobin Sodium Potassium Chloride Carbon Dioxide 20 L Anion Gap BUN Creatinine Glucose 271 H Hemoglobin A1c Calcium 8.0 L Phosphorus 2.0 L Magnesium 1.3 L AST 117 H ALT 51 H Lactate Dehydrogenase 550 H Total Creatine Kinase 3735 H C-Reactive Protein Total Protein 5.5 L Albumin 2.9 L Triglycerides Beta-Hydroxybutyrate 0.49 H Urine Protein Urine Glucose (UA) Urine Ketones Urine Occult Blood Ur Leukocyte Esterase Urine RBC Urine WBC Amorphous Crystals 01/23/18 01/23/18 01/22/18 03:45 03:45 19:48 RBC 3.99 L Hgb 10.1 L Hct 30.7 L MCV 77.1 L MCH 25.4 L RDW 18.2 H Plt Count 81 L MPV 10.5 H Band Neutrophils % 47 H Lymphocytes % 6 L WBC Morphology Dohle Bodies RBC Morphology Abnorm A Hypochromasia 1+ A Anisocytosis 1+ A Microcytosis 1+ A ABG Methemoglobin VBG pH VBG pCO2 VBG pO2 VBG HCO3 VBG Total CO2 VBG O2 Saturation VBG Lactic Acid Carboxyhemoglobin Total Hemoglobin Sodium 132 L Potassium 3.0 L Chloride 93 L Carbon Dioxide Anion Gap 17.0 H BUN 24 H Creatinine 1.2 H Glucose 322 H Hemoglobin A1c Calcium 8.2 L Phosphorus Magnesium 1.4 L AST ALT Lactate Dehydrogenase Total Creatine Kinase C-Reactive Protein 26.1 H Total Protein Albumin Triglycerides Beta-Hydroxybutyrate Urine Protein Urine Glucose (UA) Urine Ketones Urine Occult Blood Ur Leukocyte Esterase Urine RBC Urine WBC Amorphous Crystals 01/22/18 01/22/18 01/22/18 16:36 16:30 16:27 RBC Hgb Hct MCV MCH RDW Plt Count MPV Band Neutrophils % Lymphocytes % WBC Morphology Dohle Bodies RBC Morphology Hypochromasia Anisocytosis Microcytosis ABG Methemoglobin VBG pH VBG pCO2 VBG pO2 VBG HCO3 VBG Total CO2 VBG O2 Saturation VBG Lactic Acid 6.7 H* Carboxyhemoglobin Total Hemoglobin Sodium Potassium Chloride Carbon Dioxide Anion Gap BUN Creatinine Glucose Hemoglobin A1c 8.5 H Calcium Phosphorus Magnesium AST ALT Lactate Dehydrogenase Total Creatine Kinase C-Reactive Protein Total Protein Albumin Triglycerides Beta-Hydroxybutyrate Urine Protein 30 A Urine Glucose (UA) >=500 A Urine Ketones 20 A Urine Occult Blood >=1.0 A Ur Leukocyte Esterase 25 A Urine RBC 2 H Urine WBC 12 H Amorphous Crystals Few A 01/22/18 01/22/18 01/22/18 16:27 16:27 16:27 RBC Hgb Hct MCV MCH RDW Plt Count MPV Band Neutrophils % Lymphocytes % WBC Morphology Dohle Bodies RBC Morphology Hypochromasia Anisocytosis Microcytosis ABG Methemoglobin VBG pH VBG pCO2 VBG pO2 VBG HCO3 VBG Total CO2 VBG O2 Saturation VBG Lactic Acid Carboxyhemoglobin Total Hemoglobin Sodium 131 L Potassium Chloride 88 L Carbon Dioxide Anion Gap 21.0 H BUN 25 H Creatinine 1.3 H Glucose 441 H Hemoglobin A1c Calcium Phosphorus Magnesium AST 86 H ALT 51 H Lactate Dehydrogenase Total Creatine Kinase 2705 H C-Reactive Protein Total Protein Albumin Triglycerides Beta-Hydroxybutyrate 2.03 H Urine Protein Urine Glucose (UA) Urine Ketones Urine Occult Blood Ur Leukocyte Esterase Urine RBC Urine WBC Amorphous Crystals 01/22/18 16:27 RBC Hgb 11.8 L Hct MCV 76.8 L MCH 25.2 L RDW 18.5 H Plt Count 120 L MPV Band Neutrophils % 40 H Lymphocytes % 6 L WBC Morphology Abnorm A Dohle Bodies 1+ A RBC Morphology Abnorm A Hypochromasia Anisocytosis 1+ A Microcytosis 1+ A ABG Methemoglobin VBG pH VBG pCO2 VBG pO2 VBG HCO3 VBG Total CO2 VBG O2 Saturation VBG Lactic Acid Carboxyhemoglobin Total Hemoglobin Sodium Potassium Chloride Carbon Dioxide Anion Gap BUN Creatinine Glucose Hemoglobin A1c Calcium Phosphorus Magnesium AST ALT Lactate Dehydrogenase Total Creatine Kinase C-Reactive Protein Total Protein Albumin Triglycerides Beta-Hydroxybutyrate Urine Protein Urine Glucose (UA) Urine Ketones Urine Occult Blood Ur Leukocyte Esterase Urine RBC Urine WBC Amorphous Crystals Meds: Medications Dextrose (Dextrose 50%) 0 ml IV UD PRN PRN Reason: Hypoglycemia Diagnostic Test (Pha) (Accu-Chek) 1 each FS ACHS [facility] Last Admin: 01/24/18 21:52 Dose: 1 each Docusate Sodium (Colace) 100 mg PO BID [facility] Last Admin: 01/24/18 21:53 Dose: 100 mg Enoxaparin Sodium (Lovenox) 40 mg SQ DAILY [facility] Last Admin: 01/24/18 09:15 Dose: 40 mg Glucose (Insta-Glucose) 15 gm PO PRN PRN PRN Reason: Hypoglycemia Acetaminophen (Ofirmev) 1,000 mg in 100 mls @ 200 mls/hr IV Q6HP PRN PRN Reason: PAIN/FEVER > 101 Last Admin: 01/24/18 17:34 Dose: 200 mls/hr Piperacillin Sod/Tazobactam (Sod 3.375 gm/ Dextrose) 50 mls @ 100 mls/hr IV Q6H [facility] Last Admin: 01/25/18 00:07 Dose: 100 mls/hr Vancomycin HCl 1,000 mg/ (Sodium Chloride) 250 mls @ 250 mls/hr IV Q12H [facility] Last Admin: 01/24/18 21:53 Dose: 250 mls/hr Insulin Glargine (Lantus) 20 unit SQ [facility] Last Admin: 01/24/18 21:52 Dose: 20 unit Insulin Human Lispro (Humalog) 0 unit SQ [facility] PRN Reason: Protocol Last Admin: 01/24/18 21:53 Dose: 8 unit Lorazepam (Ativan) 1 mg PO Q8HP PRN PRN Reason: ANXIETY/SEDATION Ondansetron HCl (Zofran) 4 mg IV Q4-6HP PRN PRN Reason: Nausea And Vomiting Pantoprazole Sodium (Protonix) 40 mg PO [facility] Last Admin: 01/24/18 21:53 Dose: 40 mg Potassium Chloride (Kdur) 20 meq PO BIDCC [facility] Last Admin: 01/24/18 17:34 Dose: 20 meq Pregabalin (Lyrica) 75 mg PO [facility] Last Admin: 01/24/18 21:52 Dose: 75 mg Sodium Chloride (Saline Flush) 10 ml IV Q8 [facility] Last Admin: 01/24/18 21:54 Dose: 10 ml Vancomycin HCl (Vancomycin Per Pharmacy) 1 order IV UD [facility] - ABG Interpretation ABG results: 01/23/18 20:11 ABG Methemoglobin 0.3 L VBG pH 7.47 H VBG pCO2 31.3 L VBG pO2 105 H VBG HCO3 22.3 L VBG Total CO2 23.3 L VBG O2 Saturation 94.8 H VBG Base Excess -0.8 Medical - PN: A/P - Time Spent With Patient Total time spent is greater than 50% in coordination of care (as documented) at patient's floor/unit and/or counseling patient: - Narrative A/P Narrative: A/P Narrative: 77-year-old with following problems: ACUTE: - Sepsis, likely from infected L foot Blood cultures: strep. Identification and sens pending. Grew enterococcus and post str in 2016. Not sens to imipenem 01/22: VAnco and Ertapenem 01/23: will switch to Vanco and Zosyn - L mid-foot swelling and erythema Recurrent infections since 2016 (as per record) Last admission at [facility] 01/23: d/w dr Chilango Escobar: remove sutures. [place] for [place] MRI confirms diagnosis of osteomyelitis. 01/24: wound debrided, I/D by Kendy Suarez. Case d/w dr Escobar: cont medical management Case d/w ID: cont Zosyn and Vanco. Repeat Blood cultures obtained Echo: nl. No vegetations - Diabetic Ketoacidosis Improved BS control CHRONIC: - Type 2 IDDM - Neuropathy - Hx of ischemic colitis - hx of breast cancer 2010 Medical - PN: Qual - VTE Deep Vein Thrombosis/Pulmonary Embolism Present on Admission: No
[2018-01-25 05:12] LABS: Mean Cell Volume 77.8 fL (80.0-100.0); Mean Corpuscular Hemoglobin 25.7 pg (26.0-34.0); Platelet Count 97 K/mcL (140-440); RBC 4.25 M/mcL (4.00-5.20); Red Cell Distribution Width 18.8 % (11.5-14.5)
[2018-01-25] MEDS: 0.9 % SODIUM CHLORIDE 10 ML SYRINGE IV SCH ×3 (05:44→23:52)
[2018-01-25 05:49] LABS: ALT/SGPT 62 U/l (0-40); Albumin 2.6 gm/dL (3.2-5.2); Albumin/Globulin Ratio 0.8 (1.0-2.3); Alkaline Phosphatase 92 U/L (39-117); Bilirubin,Direct < 0.2 mg/dL (0.0-0.3); Blood Urea Nitrogen 20 mg/dl (8-23); Gamma Glutamyl Transpeptidase 17 U/L (5-36); Uric Acid 2.4 mg/dL (2.5-8.0)
[2018-01-25 07:40] LABS: Anisocytosis 1+ (NONE SEEN); Band Neutrophils % 2 % (0-10); Hypochromasia 1+ (NONE SEEN); Lymphocytes % 3 % (15-49); Monocytes % (Manual) 8 % (1-12); Platelet Estimate DECREASED (NORMAL); RBC Morphology ABNORM (NORMAL); Segmented Neutrophils % 87 % (38-78)
[2018-01-25] MEDS: ENOXAPARIN 40 MG/0.4 ML SYRINGE SQ SCH (08:48)
[2018-01-25] MEDS: DOCUSATE SODIUM 100 MG CAPSULE PO SCH ×2 (08:48→21:02)
[2018-01-25] MEDS: POTASSIUM CHLORIDE 20 MEQ TABLET PO SCH ×2 (08:48→17:09)
[2018-01-25] MEDS: INSULIN LISPRO 1 UNIT/0.01 ML UNIT SQ SCH ×4 (09:13→21:11)
[2018-01-25] MEDS: ACETAMINOPHEN 325 MG TABLET PO PRN ×2 (12:26→17:10)
[2018-01-25] MEDS: VANCOMYCIN 1,000 MG in 0.9 % SODIUM CHLORIDE 250 ML IV SCH ×2 (13:00→13:26)
--- NOTE | 2018-01-25 16:37 | Internal Med Progress Note ---
Medical - PN: Subj Patient information: Note initiated : 01/25/18 at 4:34 pm Service Date, if different from initiated Date: [] Patient: Xenia Morgan 77 y/o F admitted on 01/22/18 for Fever,Weakness, Elevated BG/Sepsis,Infected L Foot. Interval history: 01/22: Admitted with the following problems: ACUTE: - Sepsis, likely from infected L foot - L mid-foot swelling and erythema Recurrent infections since 2016 (as per record) Last admission at [facility] 2015 - Diabetic Ketoacidosis CHRONIC: - Type 2 IDDM - Neuropathy - Hx of ischemic colitis - hx of breast cancer 2010 PLAN: - empiric Vancomycin and Ertapenem - Insulin gtt - IVF - MRI foot in am - consult podiatry in am - DVT prophylaxis: Lovenox 01/23: T max 101 SBP > 100, but tachycardic 110's Patient appears ill. D/w dr Donis Escobar (podiatry): recommended removal of sutures. Is out-of-town and unable to see patient. MRI foot; c/w osteomyelitis. Previous wound culture (2015) showed strep viridans, enterococcus and coag neg staph. Will switch Ertapenem with Zosyn 01/24: Patient is still weak, but feeling better. Afebrile overnight. Still soft BP. Eating now. Appreciate Kendy Suarez help with debridement of L foot, and discussing case with dr Escobar. Case d/w Dru De Luna (ID): agrees with Vancomycin and Zosyn till identif and sens determined. 01/25: Still weak, but feeling better. No temp spikes. Hemodynamics stable. Blood c/s: strep group B Plan: d/c vanco. On Zosyn. Could probably change to Ertapenem. D/C jacques cath Tx to [facility] - Constitutional Vitals: Vital Signs Temp Pulse Resp BP Pulse Ox 98.8 F 87 19 108/69 94 01/25/18 12:01 01/25/18 14:01 01/25/18 14:01 01/25/18 14:01 01/25/18 14:01 Period Temp Pulse Resp BP Sys/Guzman Pulse Ox Last 24 Hr 96.9 F-102 F 80-114 19-34 88-131/53-105 88-100 Intake and Output 01/25/18 01/25/1801/25/18 05:59 13:59 21:59 Intake Total 300 / 300 340 / 340 Output Total 725 / 725 380 / 380 Balance -425 / -425 -40 / -40 Intake & Output: Intake & Output 01/25/18 01/25/18 01/25/18 05:59 13:59 21:59 Intake Total 300 / 300 340 / 340 Output Total 725 / 725 380 / 380 Balance -425 / -425 -40 / -40 Intake: IV 300 / 300 100 / 100 Zosyn 3.375 gm In Dextrose 5% 50 / 50 100 / 100 in Water 50 ml @ 100 mls/hr IV Q6H [facility] Rx#:[id number] Vancomycin 1,000 mg In Sodium 250 / 250 Chloride 0.9% 250 ml @ 250 mls/ hr IV Q12H [facility] Rx#:[id number] Oral 240 / 240 Output: Urine Catheter Amount 725 / 725 380 / 380 Other: Meal Lunch Percent of Meal Consumed 50% Feeding Ability Independent General appearance: no acute distress - Respiratory Respiratory exam: Present: decreased breath sounds - Cardiovascular Cardiovascular exam: Present: normal rate and rhythm - GI/Abdominal GI/Abdominal exam: Present: normal bowel sounds, soft - Extremities Exam Extremities exam: Present: pedal edema Medical - PN: Obj Da - Labs CBC & Chem 7: 01/25/18 03:45 01/25/18 03:45 Labs: Abnormal Lab Results 01/25/18 01/25/18 01/24/18 03:45 03:45 03:55 RBC Hgb 10.9 L Hct 33.1 L MCV 77.8 L MCH 25.7 L RDW 18.8 H Plt Count 97 L MPV Seg Neutrophils % 87 H Band Neutrophils % Lymphocytes % 3 L WBC Morphology Dohle Bodies RBC Morphology Abnorm A Hypochromasia 1+ A Anisocytosis 1+ A Microcytosis 1+ A ABG Methemoglobin VBG pH VBG pCO2 VBG pO2 VBG HCO3 VBG Total CO2 VBG O2 Saturation VBG Lactic Acid Carboxyhemoglobin Total Hemoglobin Sodium Potassium Chloride Carbon Dioxide 21 L Anion Gap BUN Creatinine Glucose 170 H 157 H Hemoglobin A1c Uric Acid 2.4 L Calcium 8.4 L 8.0 L Phosphorus 1.8 L 1.5 L Magnesium AST 77 H 103 H ALT 62 H 59 H Lactate Dehydrogenase 460 H 458 H Total Creatine Kinase C-Reactive Protein Total Protein 5.3 L Albumin 2.6 L 2.7 L Albumin/Globulin Ratio 0.8 L Triglycerides 161 H 168 H Beta-Hydroxybutyrate Urine Protein Urine Glucose (UA) Urine Ketones Urine Occult Blood Ur Leukocyte Esterase Urine RBC Urine WBC Amorphous Crystals 01/24/18 01/23/18 01/23/18 03:55 20:11 07:00 RBC Hgb 10.8 L Hct 33.3 L MCV 77.8 L MCH 25.3 L RDW 18.6 H Plt Count 80 L MPV 11.3 H Seg Neutrophils % Band Neutrophils % 28 H Lymphocytes % 4 L WBC Morphology Dohle Bodies RBC Morphology Abnorm A Hypochromasia 1+ A Anisocytosis 1+ A Microcytosis 1+ A ABG Methemoglobin 0.3 L VBG pH 7.47 H VBG pCO2 31.3 L VBG pO2 105 H VBG HCO3 22.3 L VBG Total CO2 23.3 L VBG O2 Saturation 94.8 H VBG Lactic Acid Carboxyhemoglobin 3.2 H Total Hemoglobin 9.5 L Sodium Potassium Chloride Carbon Dioxide 20 L Anion Gap BUN Creatinine Glucose 271 H Hemoglobin A1c Uric Acid Calcium 8.0 L Phosphorus 2.0 L Magnesium 1.3 L AST 117 H ALT 51 H Lactate Dehydrogenase 550 H Total Creatine Kinase C-Reactive Protein Total Protein 5.5 L Albumin 2.9 L Albumin/Globulin Ratio Triglycerides Beta-Hydroxybutyrate Urine Protein Urine Glucose (UA) Urine Ketones Urine Occult Blood Ur Leukocyte Esterase Urine RBC Urine WBC Amorphous Crystals 01/23/18 01/23/18 01/23/18 03:45 03:45 03:45 RBC Hgb Hct MCV MCH RDW Plt Count MPV Seg Neutrophils % Band Neutrophils % Lymphocytes % WBC Morphology Dohle Bodies RBC Morphology Hypochromasia Anisocytosis Microcytosis ABG Methemoglobin VBG pH VBG pCO2 VBG pO2 VBG HCO3 VBG Total CO2 VBG O2 Saturation VBG Lactic Acid Carboxyhemoglobin Total Hemoglobin Sodium Potassium Chloride Carbon Dioxide Anion Gap BUN Creatinine Glucose Hemoglobin A1c Uric Acid Calcium Phosphorus Magnesium 1.4 L AST ALT Lactate Dehydrogenase Total Creatine Kinase 3735 H C-Reactive Protein Total Protein Albumin Albumin/Globulin Ratio Triglycerides Beta-Hydroxybutyrate 0.49 H Urine Protein Urine Glucose (UA) Urine Ketones Urine Occult Blood Ur Leukocyte Esterase Urine RBC Urine WBC Amorphous Crystals 01/23/18 01/22/1818 03:45 19:48 16:36 RBC 3.99 L Hgb 10.1 L Hct 30.7 L MCV 77.1 L MCH 25.4 L RDW 18.2 H Plt Count 81 L MPV 10.5 H Seg Neutrophils % Band Neutrophils % 47 H Lymphocytes % 6 L WBC Morphology Dohle Bodies RBC Morphology Abnorm A Hypochromasia 1+ A Anisocytosis 1+ A Microcytosis 1+ A ABG Methemoglobin VBG pH VBG pCO2 VBG pO2 VBG HCO3 VBG Total CO2 VBG O2 Saturation VBG Lactic Acid Carboxyhemoglobin Total Hemoglobin Sodium 132 L Potassium 3.0 L Chloride 93 L Carbon Dioxide Anion Gap 17.0 H BUN 24 H Creatinine 1.2 H Glucose 322 H Hemoglobin A1c Uric Acid Calcium 8.2 L Phosphorus Magnesium AST ALT Lactate Dehydrogenase Total Creatine Kinase C-Reactive Protein 26.1 H Total Protein Albumin Albumin/Globulin Ratio Triglycerides Beta-Hydroxybutyrate Urine Protein 30 A Urine Glucose (UA) >=500 A Urine Ketones 20 A Urine Occult Blood >=1.0 A Ur Leukocyte Esterase 25 A Urine RBC 2 H Urine WBC 12 H Amorphous Crystals Few A 01/22/18 01/22/18 01/22/18 16:30 16:27 16:27 RBC Hgb Hct MCV MCH RDW Plt Count MPV Seg Neutrophils % Band Neutrophils % Lymphocytes % WBC Morphology Dohle Bodies RBC Morphology Hypochromasia Anisocytosis Microcytosis ABG Methemoglobin VBG pH VBG pCO2 VBG pO2 VBG HCO3 VBG Total CO2 VBG O2 Saturation VBG Lactic Acid 6.7 H* Carboxyhemoglobin Total Hemoglobin Sodium Potassium Chloride Carbon Dioxide Anion Gap BUN Creatinine Glucose Hemoglobin A1c 8.5 H Uric Acid Calcium Phosphorus Magnesium AST ALT Lactate Dehydrogenase Total Creatine Kinase 2705 H C-Reactive Protein Total Protein Albumin Albumin/Globulin Ratio Triglycerides Beta-Hydroxybutyrate Urine Protein Urine Glucose (UA) Urine Ketones Urine Occult Blood Ur Leukocyte Esterase Urine RBC Urine WBC Amorphous Crystals 01/22/18 01/22/18 01/22/18 16:27 16:27 16:27 RBC Hgb 11.8 L Hct MCV 76.8 L MCH 25.2 L RDW 18.5 H Plt Count 120 L MPV Seg Neutrophils % Band Neutrophils % 40 H Lymphocytes % 6 L WBC Morphology Abnorm A Dohle Bodies 1+ A RBC Morphology Abnorm A Hypochromasia Anisocytosis 1+ A Microcytosis 1+ A ABG Methemoglobin VBG pH VBG pCO2 VBG pO2 VBG HCO3 VBG Total CO2 VBG O2 Saturation VBG Lactic Acid Carboxyhemoglobin Total Hemoglobin Sodium 131 L Potassium Chloride 88 L Carbon Dioxide Anion Gap 21.0 H BUN 25 H Creatinine 1.3 H Glucose 441 H Hemoglobin A1c Uric Acid Calcium Phosphorus Magnesium AST 86 H ALT 51 H Lactate Dehydrogenase Total Creatine Kinase C-Reactive Protein Total Protein Albumin Albumin/Globulin Ratio Triglycerides Beta-Hydroxybutyrate 2.03 H Urine Protein Urine Glucose (UA) Urine Ketones Urine Occult Blood Ur Leukocyte Esterase Urine RBC Urine WBC Amorphous Crystals Meds: Medications Acetaminophen (Tylenol) 650 mg PO Q4HP PRN PRN Reason: PAIN/FEVER > 101 Last Admin: 01/25/18 12:26 Dose: 650 mg Dextrose (Dextrose 50%) 0 ml IV UD PRN PRN Reason: Hypoglycemia Diagnostic Test (Pha) (Accu-Chek) 1 each FS [facility] Last Admin: 01/25/18 12:22 Dose: 1 each Docusate Sodium (Colace) 100 mg PO BID [facility] Last Admin: 01/25/18 08:48 Dose: 100 mg Enoxaparin Sodium (Lovenox) 40 mg SQ DAILY [facility] Last Admin: 01/25/18 08:48 Dose: 40 mg Glucose (Insta-Glucose) 15 gm PO PRN PRN PRN Reason: Hypoglycemia Acetaminophen (Ofirmev) 1,000 mg in 100 mls @ 200 mls/hr IV Q6HP PRN PRN Reason: PAIN/FEVER > 101 Last Infusion: 01/24/18 18:04 Dose: Infused Piperacillin Sod/Tazobactam (Sod 3.375 gm/ Dextrose) 50 mls @ 100 mls/hr IV Q6H [facility] Last Infusion: 01/25/18 12:40 Dose: Infused Vancomycin HCl 1,000 mg/ (Sodium Chloride) 250 mls @ 250 mls/hr IV Q12H [facility] Last Admin: 01/25/18 13:26 Dose: Not Given Insulin Glargine (Lantus) 20 unit SQ [facility] Last Admin: 01/24/18 21:52 Dose: 20 unit Insulin Human Lispro (Humalog) 0 unit SQ [facility] PRN Reason: Protocol Last Admin: 01/25/18 12:27 Dose: 4 unit Lorazepam (Ativan) 1 mg PO Q8HP PRN PRN Reason: ANXIETY/SEDATION Ondansetron HCl (Zofran) 4 mg IV Q4-6HP PRN PRN Reason: Nausea And Vomiting Pantoprazole Sodium (Protonix) 40 mg PO [facility] Last Admin: 01/24/18 21:53 Dose: 40 mg Potassium Chloride (Kdur) 20 meq PO BIDCC [facility] Last Admin: 01/25/18 08:48 Dose: 20 meq Pregabalin (Lyrica) 75 mg PO [facility] Last Admin: 01/24/18 21:52 Dose: 75 mg Sodium Chloride (Saline Flush) 10 ml IV Q8 [facility] Last Admin: 01/25/18 12:11 Dose: 10 ml Vancomycin HCl (Vancomycin Per Pharmacy) 1 order IV UD [facility] - ABG Interpretation ABG results: 01/23/18 20:11 ABG Methemoglobin 0.3 L VBG pH 7.47 H VBG pCO2 31.3 L VBG pO2 105 H VBG HCO3 22.3 L VBG Total CO2 23.3 L VBG O2 Saturation 94.8 H VBG Base Excess -0.8 Medical - PN: A/P - Time Spent With Patient Total time spent is greater than 50% in coordination of care (as documented) at patient's floor/unit and/or counseling patient: - Narrative A/P Narrative: A/P Narrative: 77-year-old with following problems: ACUTE: - Sepsis, likely from infected L foot Blood cultures: strep. Identification and sens pending. Grew enterococcus and post str in 2016. Not sens to imipenem 01/22: VAnco and Ertapenem 2: will switch to Vanco and Zosyn 01/25: group B strep. D/C Vanco. Cont Zosyn - L mid-foot swelling and erythema Recurrent infections since 2016 (as per record) Last admission at [facility] 01/23: d/w dr Chilango Escobar: remove sutures. [place] available for consult [place]. MRI confirms diagnosis of osteomyelitis. 01/24: wound debrided, I/D by Kendy Suarez. Case d/w dr Escobar: cont medical management Case d/w ID: [email or web address] Blood cultures obtained 01/23 Echo: nl. No vegetations Plan: if repeat blood c/s neg, can place PICC for long term antibiotics - Diabetic Ketoacidosis Improved BS control CHRONIC: - Type 2 IDDM - Neuropathy - Hx of ischemic colitis - hx of breast cancer 2011 Medical - PN: Qual - VTE Deep Vein Thrombosis/Pulmonary Embolism Present on Admission: No
[2018-01-25] MEDS ORDERED: DEXTROSE 31 GM ORAL.SUSP PO PRN (17:10)
[2018-01-25] MEDS ORDERED: DEXTROSE 50% 50 ML VIAL IV PRN (17:10)
[2018-01-25] MEDS ORDERED: ONDANSETRON 4 MG/2 ML VIAL IV PRN (17:10)
[2018-01-25] MEDS ORDERED: ACETAMINOPHEN 325 MG TABLET PO PRN (17:10)
[2018-01-25] MEDS ORDERED: PANTOPRAZOLE 40 MG TABLET PO SCH (21:00)
[2018-01-25] MEDS ORDERED: INSULIN GLARGINE, HUMAN 1 UNIT/0.01 ML SQ SCH (21:00)
[2018-01-25] MEDS: PREGABALIN 75 MG CAPSULE PO SCH (21:01)
[2018-01-25] MEDS ORDERED: METHOCARBAMOL 750 MG TABLET PO PRN (21:13)
[2018-01-26] MEDS: PIPERACILLIN SODIUM/TAZOBACTAM 3.375 GM in DEXTROSE 5% IN WATER 50 ML IV SCH ×5 (05:52→23:13)
[2018-01-26] MEDS: 0.9 % SODIUM CHLORIDE 10 ML SYRINGE IV SCH ×4 (05:53→23:55)
[2018-01-26 05:59] LABS: Basophils # (Auto) 0 K/mcL (0.0-0.3); Basophils % (Auto) 0.2 % (0.0-2.0); Eosinophils # (Auto) 0.1 K/mcL (0.0-0.7); Eosinophils % (Auto) 1.7 % (0.0-7.0); Granulocytes % (Auto) 79.6 % (38.0-78.0); Lymphocytes # (Auto) 0.5 K/mcL (1.5-4.8); Lymphocytes % (Auto) 9.2 % (15.5-49.0); Mean Cell Volume 75.9 fL (80.0-100.0); Mean Corpuscular HGB Conc 33.7 g/dL (31.0-36.0); Mean Corpuscular Hemoglobin 25.6 pg (26.0-34.0); Monocytes # (Auto) 0.5 K/mcL (0.1-0.9); Monocytes % (Auto) 9.3 % (1.0-12.0); Platelet Count 111 K/mcL (140-440); RBC 3.76 M/mcL (4.00-5.20); Red Cell Distribution Width 19.3 % (11.5-14.5)
[2018-01-26 06:41] LABS: ALT/SGPT 58 U/l (0-40); Albumin 2.5 gm/dL (3.2-5.2); Albumin/Globulin Ratio 0.8 (1.0-2.3); Alkaline Phosphatase 95 U/L (39-117); Bilirubin,Direct < 0.2 mg/dL (0.0-0.3); Blood Urea Nitrogen 18 mg/dl (8-23); Gamma Glutamyl Transpeptidase 14 U/L (5-36)
[2018-01-26] MEDS: INSULIN LISPRO 1 UNIT/0.01 ML UNIT SQ SCH ×4 (08:06→20:58)
[2018-01-26] MEDS: POTASSIUM CHLORIDE 20 MEQ TABLET PO SCH (08:15)
[2018-01-26] MEDS: DOCUSATE SODIUM 100 MG CAPSULE PO SCH ×2 (08:15→20:58)
[2018-01-26] MEDS: oxyCODONE HCL 5 MG TABLET PO PRN ×2 (08:15→13:55)
[2018-01-26] MEDS: ENOXAPARIN 40 MG/0.4 ML SYRINGE SQ SCH (08:17)
[2018-01-26] MEDS ORDERED: 0.9 % SODIUM CHLORIDE 10 ML SYRINGE IV PRN (09:28)
--- NOTE | 2018-01-26 12:47 | Internal Med Progress Note ---
Medical - PN: Subj Patient information: Note initiated : 01/26/18 at 12:45 pm Service Date, if different from initiated Date: [] Patient: Xenia Morgan 77 y/o F admitted on 01/22/18 for Fever,Weakness, Elevated BG/Sepsis,Infected L Foot. Chief Complaint: [] Interval history: 01/22: Admitted with the following problems: ACUTE: - Sepsis, likely from infected L foot - L mid-foot swelling and erythema Recurrent infections since 2015 (as per record) Last admission at [facility] 2015 - Diabetic Ketoacidosis CHRONIC: - Type 2 IDDM - Neuropathy - Hx of ischemic colitis - hx of breast cancer 2010 PLAN: - empiric Vancomycin and Ertapenem - Insulin gtt - IVF - MRI foot in am - consult podiatry in am - DVT prophylaxis: Lovenox 01/23: T max 101 SBP > 100, but tachycardic 110's Patient appears ill. D/w dr Donis Escobar (podiatry): recommended removal of sutures. Is out-of-town and unable to see patient. MRI foot; c/w osteomyelitis. Previous wound culture (2015) showed strep viridans, enterococcus and coag neg staph. Will switch Ertapenem with Zosyn 01/24: Patient is still weak, but feeling better. Afebrile overnight. Still soft BP. Eating now. Appreciate Kendy Suarez help with debridement of L foot, and discussing case with dr Escobar. Case d/w Dru De Luna (ID): agrees with Vancomycin and Zosyn till identif and sens determined. 01/25: Still weak, but feeling better. No temp spikes. Hemodynamics stable. Blood c/s: strep group B Plan: d/c vanco. On Zosyn. Could probably change to Ertapenem. D/C jacques cath Tx to [facility] 01/26 Patient seen and examined, still quite a bit weak. She complains of generalized pain, movement of the bed also causes severe pain. She notes pain in every joint in the body generalized myalgia and arthralgia. The patient remains afebrile, blood culture positive for strep off vancomycin and Zosyn for now. PICC line to be placed today, repeat cultures have been negative Start the patient on celecoxib for generalized arthralgia MRI of the patient reviewed, pt has osteomyelitis, but also ankle joint possible septic arthritis. I do not see any documentation for same not do I see any aspiration of the ankle joint. We do not have podiatry available according to recent notes will get ankle joint aspirated and sent for analysis. If suggestive for infection, consult ortho. Pertinent ROS: generalized aches, arthralgia Denies headache, dizziness Denies chest pain, palpitations Denies cough or shortness of breath Denies abdominal pain, nausea or vomiting. - Constitutional Vitals: Vital Signs Temp Pulse Resp BP Pulse Ox 97.7 F 77 20 122/63 94 01/26/18 12:00 01/26/18 12:00 01/26/18 12:00 01/26/18 12:00 01/26/18 12:00 Period Temp Pulse Resp BP Sys/Guzman Pulse Ox Last 24 Hr 97.7 F-99.3 F 77-90 19-34 62-139/50-81 93-97 Intake and Output 01/25/18 01/26/18 01/26/18 21:59 05:59 13:59 Intake Total 650 / 650 50 / 50 230 / 230 Output Total 180 / 180 500 / 500 Balance 470 / 470 50 / 50 -270 / -270 Weight 191 lb 12.8 oz Intake & Output: Intake & Output 01/25/18 01/26/18 01/26/18 21:59 05:59 13:59 Intake Total 650 / 650 50 / 50 230 / 230 Output Total 180 / 180 500 / 500 Balance 470 / 470 50 / 50 -270 / -270 Weight 191 lb 12.8 oz Intake: IV 250 / 250 50 / 50 50 / 50 Zosyn 3.375 gm In Dextrose 5% 50 / 50 50 / 50 in Water 50 ml @ 100 mls/hr IV Q6H [facility] Rx#:[id number] Oral 400 / 400 180 / 180 Output: Urine Catheter Amount 180 / 180 500 / 500 Other: Meal Dinner Lunch Percent of Meal Consumed 30% 50% Feeding Ability Assist with Tray Set Up Assist with Tray Set Up Exam: Constitutional; Afebrile, cooperative, alert, not in distress. Eyes- No icterus, , No periorbital swelling Ears- Ext ear normal, hearing normal to conversation. Neck- Midline trachea, supple Respiratory system: Air Entry equal on both sides, No crackles or wheezing, no rhonchi. CVS- Rate rhythm regular, S1,S2 heard, no gallop, no rub. Abdomen- Soft nontender abdomen, no organomegaly, no tenderness, no guarding or rigidity, SIGNING AGENT- AOOx3, moving all extremities, no gross focal deficit noted. Medical - PN: Obj Da - Labs CBC & Chem 7: 01/26/18 03:30 01/26/18 03:30 Labs: Abnormal Lab Results 01/26/18 01/26/18 01/26/18 03:30 03:30 03:30 RBC Hgb Hct MCV MCH RDW Plt Count MPV Gran % Lymph % (Auto) Lymph # (Auto) Seg Neutrophils % Band Neutrophils % Lymphocytes % RBC Morphology Hypochromasia Anisocytosis Microcytosis ESR 72 H ABG Methemoglobin VBG pH VBG pCO2 VBG pO2 VBG HCO3 VBG Total CO2 VBG O2 Saturation Carboxyhemoglobin Total Hemoglobin Carbon Dioxide Glucose 184 H Uric Acid 2.0 L Calcium 8.1 L Phosphorus 2.0 L AST 60 H ALT 58 H Lactate Dehydrogenase 363 H C-Reactive Protein 17.3 H Total Protein 5.5 L Albumin 2.5 L Albumin/Globulin Ratio 0.8 L Triglycerides 01/26/18 01/25/18 01/25/18 03:30 03:45 03:45 RBC 3.76 L Hgb 9.6 L 10.9 L Hct 28.5 L 33.1 L MCV 75.9 L 77.8 L MCH 25.6 L 25.7 L RDW 19.3 H 18.8 H Plt Count 111 L 97 L MPV Gran % 79.6 H Lymph % (Auto) 9.2 L Lymph # (Auto) 0.5 L Seg Neutrophils % 87 H Band Neutrophils % Lymphocytes % 3 L RBC Morphology Abnorm A Hypochromasia 1+ A Anisocytosis 1+ A Microcytosis 1+ A ESR ABG Methemoglobin VBG pH VBG pCO2 VBG pO2 VBG HCO3 VBG Total CO2 VBG O2 Saturation Carboxyhemoglobin Total Hemoglobin Carbon Dioxide 21 L Glucose 170 H Uric Acid 2.4 L Calcium 8.4 L Phosphorus 1.8 L AST 77 H ALT 62 H Lactate Dehydrogenase 460 H C-Reactive Protein Total Protein Albumin 2.6 L Albumin/Globulin Ratio 0.8 L Triglycerides 161 H 01/24/18 01/24/18 01/23/18 03:55 03:55 20:11 RBC Hgb 10.8 L Hct 33.3 L MCV 77.8 L MCH 25.3 L RDW 18.6 H Plt Count 80 L MPV 11.3 H Gran % Lymph % (Auto) Lymph # (Auto) Seg Neutrophils % Band Neutrophils % 28 H Lymphocytes % 4 L RBC Morphology Abnorm A Hypochromasia 1+ A Anisocytosis 1+ A Microcytosis 1+ A ESR ABG Methemoglobin 0.3 L VBG pH 7.47 H VBG pCO2 31.3 L VBG pO2 105 H VBG HCO3 22.3 L VBG Total CO2 23.3 L VBG O2 Saturation 94.8 H Carboxyhemoglobin 3.2 H Total Hemoglobin 9.5 L Carbon Dioxide Glucose 157 H Uric Acid Calcium 8.0 L Phosphorus 1.5 L AST 103 H ALT 59 H Lactate Dehydrogenase 458 H C-Reactive Protein Total Protein 5.3 L Albumin 2.7 L Albumin/Globulin Ratio Triglycerides 168 H Meds: Medications Acetaminophen (Tylenol) 650 mg PO Q4HP PRN PRN Reason: PAIN/FEVER > 101 Celecoxib (Celebrex) 200 mg PO DAILY [facility] Dextrose (Dextrose 50%) 0 ml IV UD PRN PRN Reason: Hypoglycemia Diagnostic Test (Pha) (Accu-Chek) 1 each FS ACHS [facility] Last Admin: 01/26/18 08:05 Dose: 1 each Docusate Sodium (Colace) 100 mg PO BID [facility] Last Admin: 01/26/18 08:15 Dose: 100 mg Enoxaparin Sodium (Lovenox) 40 mg SQ DAILY [facility] Last Admin: 01/26/18 08:17 Dose: 40 mg Glucose (Insta-Glucose) 15 gm PO PRN PRN PRN Reason: Hypoglycemia Heparin Sodium (Porcine) (Heparin Flush) 2 ml IV Q12 [facility] Piperacillin Sod/Tazobactam (Sod 3.375 gm/ Dextrose) 50 mls @ 100 mls/hr IV Q6H [facility] Last Admin: 01/26/18 11:36 Dose: 100 mls/hr Insulin Human Lispro (Humalog) 0 unit SQ ACHS [facility] PRN Reason: Protocol Last Admin: 01/26/18 08:06 Dose: 1 unit Lorazepam (Ativan) 1 mg PO Q8HP PRN PRN Reason: ANXIETY/SEDATION Methocarbamol (Robaxin) 750 mg PO TIDP PRN PRN Reason: Muscle Spasm Last Admin: 01/25/18 21:32 Dose: 750 mg Ondansetron HCl (Zofran) 4 mg IV Q4-6HP PRN PRN Reason: Nausea And Vomiting Oxycodone HCl (Roxicodone) 5 mg PO Q4HP PRN PRN Reason: PAIN LEVEL 3-6 Last Admin: 01/26/18 08:15 Dose: 5 mg Pantoprazole Sodium (Protonix) 40 mg PO QAMAC [facility] Potassium Chloride (Kdur) 20 meq PO DAILY [facility] Last Admin: 01/26/18 08:15 Dose: 20 meq Pregabalin (Lyrica) 75 mg PO HS [facility] Last Admin: 01/25/18 21:01 Dose: 75 mg Sodium Chloride (Saline Flush) 10 ml IV Q8 [facility] Last Admin: 01/26/18 05:53 Dose: 10 ml Sodium Chloride (Saline Flush) 10 ml IV UD PRN PRN Reason: FLUSH Sodium Chloride (Saline Flush) 10 ml IV Q12 [facility] - ABG Interpretation ABG results: 01/23/18 20:11 ABG Methemoglobin 0.3 L VBG pH 7.47 H VBG pCO2 31.3 L VBG pO2 105 H VBG HCO3 22.3 L VBG Total CO2 23.3 L VBG O2 Saturation 94.8 H VBG Base Excess -0.8 Medical - PN: A/P - Time Spent With Patient Total time spent is greater than 50% in coordination of care (as documented) at patient's floor/unit and/or counseling patient: - Narrative A/P Narrative: A/P Narrative: 77-year-old with following problems: Sepsis- resolved, secondary to infected left foot, ankle septic arthritis Blood cx strep, gonzáles sensitive, Blood cultures: strep. Identification and sens pending. Grew enterococcus and post str in 2016. Not sens to imipenem 01/22: Vanco and Ertapenem 2: will switch to Vanco and Zosyn 01/25: group B strep. D/C Vanco. Cont Zosyn 01/26: Given that patient also has possible septic arthritis, resume vancomycin - L mid-foot swelling and erythema Recurrent infections since 2016 (as per record) Last admission at [facility] 01/23: d/w dr Chilango Escobar: remove sutures. Not available for consult due to being out fstate. MRI confirms diagnosis of osteomyelitis. 01/24: wound debrided, I/D by Kendy Suarez. Case d/w dr Escobar: cont medical management Case d/w ID: [email or web address] Blood cultures obtained 01/23 Echo: nl. No vegetations Plan: if repeat blood c/s neg, can place PICC for assisted antibiotics 01/26: Not sure if repeat wound cx was sent after wound debridement, I am unable to find a note/documentation for same either. Ankle effusion (possible septic arthritis) Noted on MRI, not documentation to that effect so far, get ankle aspiration, send workup if suggestive of infection, get ortho consult for possible joint clean up. Diabetic Ketoacidosis/ resolved Diabetes type 2, uncontrolled, : on lantus and ssi, held home dose of oral meds for now, titrate insulin to achieve better glycemic control. h/o ischemic colitis: denies abdominal pain. Peripheral Neuropathy: continue home meds Arthralgia/ generalized: start on celebrex for same. likely post infectious reaction. DVT enoxaparin Full code Medical - PN: Qual - VTE Deep Vein Thrombosis/Pulmonary Embolism Present on Admission: No
[2018-01-26] MEDS ORDERED: VANCOMYCIN PER PHARMACY IV SCH (12:55)
--- NOTE | 2018-01-26 13:44 | XRay Report ---
CLINICAL INFORMATION: PICC PLACEMENT COMPARISON: 01/22/2018 FINDINGS: Moderate cardiomegaly is unchanged. Moderate size hiatal hernia is noted. Right PICC line tip overlies the SVC/ right atrial junction. Mediastinum and pulmonary vessels are normal. Minor bibasilar atelectasis noted IMPRESSION: 1. PICC line satisfactory position. 2. Moderate hiatal hernia 3. Mild bibasilar atelectasis Interpreted and Authenticated by: Dash Morel 01/26/18
[2018-01-26] MEDS: CELECOXIB 200 MG CAPSULE PO SCH (13:57)
[2018-01-26] MEDS: PANTOPRAZOLE 40 MG TABLET PO SCH (14:01)
[2018-01-26] MEDS ORDERED: IOHEXOL 180 10 ML VIAL IJ ONE (15:19)
[2018-01-26] MEDS ORDERED: LIDOCAINE 1% 20 ML VIAL SQ ONE (15:19)
[2018-01-26] MEDS: VANCOMYCIN 1,000 MG in 0.9 % SODIUM CHLORIDE 250 ML IV SCH ×2 (15:26→23:13)
--- NOTE | 2018-01-26 15:35 | XRay Report ---
CLINICAL INFORMATION: Large left ankle effusion on MRI possible septic arthritis TECHNIQUE: The procedure and risks with possibility of bleeding and cellulitis were explained to the patient. She understood and wished to proceed. With the patient supine position, the anterior periarticular skin overlying the medial ankle mortise was fluoroscopically marked, prepped and locally anesthetized with 1% lidocaine using a 25-gauge needle. A 20-gauge needle was then placed, under fluoroscopic guidance, into the medial aspect of ankle mortise. Approximately 5 cc of purulent fluid aspirated and sent for Gram stain culture and sensitivity. Following the procedure, less than two cc of Omnipaque 180 was injected with confirm intra-articular needle tip position. No apparent complication. Fluoroscopy time: one minute 11 seconds IMPRESSION: Successful fluoroscopic guided aspiration of ankle mortise yielding 5 cc of purulent fluid which was sent for Gram stain culture and sensitivity. Patient tolerated procedure well - no complication Interpreted and Authenticated by: Dash Morel 01/26/18
[2018-01-26 17:17] LABS: Glucose,Synovial Fluid 172 mg/dL
[2018-01-26 18:53] LABS: Lymphocytes,Synovial Fluid 8 %; Neutrophils,Synovial Fluid 90 % (0-25); Other Cells,Synovial Fluid 2 %
[2018-01-26 18:58] LABS: Appearance,Synovial Fluid CLOTTED; Color,Synovial Fluid RED
[2018-01-26] MEDS: LORazepam 1 MG TABLET PO PRN (20:57)
[2018-01-26] MEDS: PREGABALIN 75 MG CAPSULE PO SCH (20:57)
[2018-01-26] MEDS ORDERED: INSULIN GLARGINE, HUMAN 1 UNIT/0.01 ML SQ SCH (21:00)
[2018-01-27 05:28] LABS: Basophils # (Auto) 0 K/mcL (0.0-0.3); Basophils % (Auto) 0 % (0.0-2.0); Eosinophils # (Auto) 0.2 K/mcL (0.0-0.7); Eosinophils % (Auto) 3.5 % (0.0-7.0); Granulocytes % (Auto) 79.9 % (38.0-78.0); Lymphocytes # (Auto) 0.6 K/mcL (1.5-4.8); Lymphocytes % (Auto) 8.9 % (15.5-49.0); Mean Cell Volume 76.5 fL (80.0-100.0); Mean Corpuscular HGB Conc 33.9 g/dL (31.0-36.0); Monocytes # (Auto) 0.5 K/mcL (0.1-0.9); Monocytes % (Auto) 7.7 % (1.0-12.0); Platelet Count 132 K/mcL (140-440); RBC 3.69 M/mcL (4.00-5.20); Red Cell Distribution Width 18.9 % (11.5-14.5)
[2018-01-27] MEDS: PIPERACILLIN SODIUM/TAZOBACTAM 3.375 GM in DEXTROSE 5% IN WATER 50 ML IV SCH ×3 (05:52→17:32)
[2018-01-27 06:38] LABS: ALT/SGPT 45 U/l (0-40); Albumin 2.2 gm/dL (3.2-5.2); Albumin/Globulin Ratio 0.7 (1.0-2.3); Alkaline Phosphatase 89 U/L (39-117); Bilirubin,Direct < 0.2 mg/dL (0.0-0.3); Blood Urea Nitrogen 17 mg/dl (8-23); Gamma Glutamyl Transpeptidase 17 U/L (5-36); Uric Acid 1.7 mg/dL (2.5-8.0)
[2018-01-27] MEDS ORDERED: POTASSIUM PHOSPHATE 40 MEQ in DEXTROSE 5% IN WATER 500 ML IV ONE (07:57)
[2018-01-27] MEDS ORDERED: MAGNESIUM SULFATE 2 GM/50 ML BAG IV ONE (07:57)
[2018-01-27] MEDS ORDERED: NEUTRA PHOS 1 PACKET PO ONE (07:58)
[2018-01-27] MEDS: INSULIN LISPRO 1 UNIT/0.01 ML UNIT SQ SCH ×4 (08:12→21:16)
[2018-01-27] MEDS: DOCUSATE SODIUM 100 MG CAPSULE PO SCH ×2 (08:13→21:15)
[2018-01-27] MEDS: PANTOPRAZOLE 40 MG TABLET PO SCH (08:13)
[2018-01-27] MEDS: CELECOXIB 200 MG CAPSULE PO SCH (08:13)
[2018-01-27] MEDS: ENOXAPARIN 40 MG/0.4 ML SYRINGE SQ SCH (08:14)
[2018-01-27] MEDS: POTASSIUM CHLORIDE 20 MEQ TABLET PO SCH (09:29)
[2018-01-27] MEDS: 0.9 % SODIUM CHLORIDE 10 ML SYRINGE IV SCH ×2 (09:30→21:15)
[2018-01-27] MEDS ORDERED: KETOROLAC 15 MG/ML VIAL IV ONE (09:52)
[2018-01-27] MEDS: VANCOMYCIN 1,000 MG in 0.9 % SODIUM CHLORIDE 250 ML IV SCH ×2 (11:44→22:40)
[2018-01-27] MEDS: ACETAMINOPHEN 500 MG TABLET PO SCH ×3 (12:07→21:14)
[2018-01-27] MEDS ORDERED: KETOROLAC 30 MG/ML VIAL IV ONE (12:15)
--- NOTE | 2018-01-27 13:51 | Internal Med Progress Note ---
Medical - PN: Subj Patient information: Note initiated : 01/27/18 at 1:49 pm Service Date, if different from initiated Date: [] Patient: Xenia Morgan 77 y/o F admitted on 01/22/18 for Fever,Weakness, Elevated BG/Sepsis,Infected L Foot. Chief Complaint: [] Interval history: 01/22: Admitted with the following problems: ACUTE: - Sepsis, likely from infected L foot - L mid-foot swelling and erythema Recurrent infections since 2015 (as per record) Last admission at [facility] 2015 - Diabetic Ketoacidosis CHRONIC: - Type 2 IDDM - Neuropathy - Hx of ischemic colitis - hx of breast cancer 2010 PLAN: - empiric Vancomycin and Ertapenem - Insulin gtt - IVF - MRI foot in am - consult podiatry in am - DVT prophylaxis: Lovenox 01/23: T max 101 SBP > 100, but tachycardic 110's Patient appears ill. D/w dr Donis Escobar (podiatry): recommended removal of sutures. Is [place]-of-town and unable to see patient. MRI foot; c/w osteomyelitis. Previous wound culture (2015) showed strep viridans, enterococcus and coag neg staph. Will switch Ertapenem with Zosyn 01/24: Patient is still weak, but feeling better. Afebrile overnight. Still soft BP. Eating now. Appreciate Kendy Suarez help with debridement of L foot, and discussing case with dr Escobar. Case d/w Dru De Luna (ID): agrees with Vancomycin and Zosyn till identif and sens determined. 01/25: Still weak, but feeling better. No temp spikes. Hemodynamics stable. Blood c/s: strep group B Plan: d/c vanco. On Zosyn. Could probably change to Ertapenem. D/C jacques cath Tx to [facility] 01/26 Patient seen and examined, still quite a bit weak. She complains of generalized pain, movement of the bed also causes severe pain. She notes pain in every joint in the body generalized myalgia and arthralgia. The patient remains afebrile, blood culture positive for strep off vancomycin and Zosyn for now. PICC line to be placed today, repeat cultures have been negative Start the patient on celecoxib for generalized arthralgia MRI of the patient reviewed, pt has osteomyelitis, but also ankle joint possible septic arthritis. I do not see any documentation for same not do I see any aspiration of the ankle joint. We do not have podiatry available according to recent notes will get ankle joint aspirated and sent for analysis. If suggestive for infection, consult ortho. 01/27 Patient seen and examined, quite weak, still has generalized aches and pains. She notes that whenever she moves everything hurts. Celecoxib did not help much , will keep her on scheduled Tylenol as well as give her a dose of ketorolac today to see if that helps. Check C3-C4 and CATARINO panel. Reviewed the case with wound care consult, they were aware of the effusion in the ankle and it seems that Dr. 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 The fluid was stopped, WBC count is 10,000, neutrophils are 90%. Clotted hemorrhagic sample. Patient is already on antibiotics at this point. Only 5 cc of fluid was aspirated. Patient had a low-grade temperature this morning, will continue to monitor for now. Anticipate discharge to sniff tomorrow if fever curve improves and patient's pain control is adequate Pertinent ROS: Denies headache, dizziness Denies chest pain, palpitations Denies cough or shortness of breath Denies abdominal pain, nausea or vomiting. Has generalized arthralgia - Constitutional Vitals: Vital Signs Temp Pulse Resp BP Pulse Ox 98.0 F 77 18 121/67 94 01/27/18 12:00 01/27/18 12:00 01/27/18 12:00 01/27/18 12:00 01/27/18 12:00 Period Temp Pulse Resp BP Sys/Guzman Pulse Ox Last 24 Hr 98.0 F-99.6 F 77-86 16-20 120-156/58-82 90-98 Intake and Output 01/26/18 01/27/18 01/27/18 21:59 05:59 13:59 Intake Total 300 / 300 500 / 500 50 / 50 Output Total 225 / 225 675 / 675 800 / 800 Balance 75 / 75 -175 / -175 -750 / -750 Weight 187 lb Intake & Output: Intake & Output 01/26/18 01/27/18 01/27/18 21:59 05:59 13:59 Intake Total 300 / 300 500 / 500 50 / 50 Output Total 225 / 225 675 / 675 800 / 800 Balance 75 / 75 -175 / -175 -750 / -750 Weight 187 lb Intake: IV 300 / 300 300 / 300 50 / 50 Zosyn 3.375 gm In Dextrose 5% 50 / 50 50 / 50 50 / 50 in Water 50 ml @ 100 mls/hr IV Q6H [facility] Rx#:[id number] Vancomycin 1,000 mg In Sodium 250 / 250 250 / 250 Chloride 0.9% 250 ml @ 250 mls/ hr IV Q12H [facility] Rx#:[id number] Oral 200 / 200 Output: Urine Catheter Amount 225 / 225 675 / 675 800 / 800 Other: Stool Color Brown Green # Bowel Movements 1 Exam: Constitutional; Afebrile, cooperative, alert, not in distress. Eyes- No icterus, , No periorbital swelling Ears- Ext ear normal, hearing normal to conversation. Neck- Midline trachea, supple Respiratory system: Air Entry equal on both sides, No crackles or wheezing, no rhonchi. CVS- Rate rhythm regular, S1,S2 heard, no gallop, no rub. 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 Medical - PN: Obj Da - Labs CBC & Chem 7: 01/27/18 04:00 01/27/18 04:00 Labs: Abnormal Lab Results 01/27/18 01/27/18 01/26/18 04:00 04:00 16:21 RBC 3.69 L Hgb 9.6 L Hct 28.2 L MCV 76.5 L MCH RDW 18.9 H Plt Count 132 L Gran % 79.9 H Lymph % (Auto) 8.9 L Lymph # (Auto) 0.6 L Seg Neutrophils % Lymphocytes % RBC Morphology Hypochromasia Anisocytosis Microcytosis ESR Carbon Dioxide Glucose 182 H Uric Acid 1.7 L Calcium 8.0 L Phosphorus 2.6 L Magnesium 1.5 L AST ALT 45 H Lactate Dehydrogenase 342 H Total Creatine Kinase C-Reactive Protein Total Protein 5.3 L Albumin 2.2 L Albumin/Globulin Ratio 0.7 L Triglycerides Synovial Neutrophils 90 H 01/26/18 01/26/18 01/26/18 03:30 03:30 03:30 RBC Hgb Hct MCV MCH RDW Plt Count Gran % Lymph % (Auto) Lymph # (Auto) Seg Neutrophils % Lymphocytes % RBC Morphology Hypochromasia Anisocytosis Microcytosis ESR 72 H Carbon Dioxide Glucose Uric Acid Calcium Phosphorus Magnesium AST ALT Lactate Dehydrogenase Total Creatine Kinase 373 H C-Reactive Protein 17.3 H Total Protein Albumin Albumin/Globulin Ratio Triglycerides Synovial Neutrophils 01/26/18 01/26/18 01/25/18 03:30 03:30 03:45 RBC 3.76 L Hgb 9.6 L Hct 28.5 L MCV 75.9 L MCH 25.6 L RDW 19.3 H Plt Count 111 L Gran % 79.6 H Lymph % (Auto) 9.2 L Lymph # (Auto) 0.5 L Seg Neutrophils % Lymphocytes % RBC Morphology Hypochromasia Anisocytosis Microcytosis ESR Carbon Dioxide 21 L Glucose 184 H 170 H Uric Acid 2.0 L 2.4 L Calcium 8.1 L 8.4 L Phosphorus 2.0 L 1.8 L Magnesium AST 60 H 77 H ALT 58 H 62 H Lactate Dehydrogenase 363 H 460 H Total Creatine Kinase C-Reactive Protein Total Protein 5.5 L Albumin 2.5 L 2.6 L Albumin/Globulin Ratio 0.8 L 0.8 L Triglycerides 161 H Synovial Neutrophils 01/25/18 03:45 RBC Hgb 10.9 L Hct 33.1 L MCV 77.8 L MCH 25.7 L RDW 18.8 H Plt Count 97 L Gran % Lymph % (Auto) Lymph # (Auto) Seg Neutrophils % 87 H Lymphocytes % 3 L RBC Morphology Abnorm A Hypochromasia 1+ A Anisocytosis 1+ A Microcytosis 1+ A ESR Carbon Dioxide Glucose Uric Acid Calcium Phosphorus Magnesium AST ALT Lactate Dehydrogenase Total Creatine Kinase C-Reactive Protein Total Protein Albumin Albumin/Globulin Ratio Triglycerides Synovial Neutrophils Meds: Medications Acetaminophen (Tylenol) 1,000 mg PO TID [facility] Last Admin: 01/27/18 12:07 Dose: 1,000 mg Celecoxib (Celebrex) 200 mg PO DAILY [facility] Last Admin: 01/27/18 08:13 Dose: 200 mg Dextrose (Dextrose 50%) 0 ml IV UD PRN PRN Reason: Hypoglycemia Diagnostic Test (Pha) (Accu-Chek) 1 each FS ACHS [facility] Last Admin: 01/27/18 12:09 Dose: 1 each Docusate Sodium (Colace) 100 mg PO BID [facility] Last Admin: 01/27/18 08:13 Dose: 100 mg Enoxaparin Sodium (Lovenox) 40 mg SQ DAILY [facility] Last Admin: 01/27/18 08:14 Dose: 40 mg Glipizide (Glucotrol) 5 mg PO BIDAC [facility] Glucose (Insta-Glucose) 15 gm PO PRN PRN PRN Reason: Hypoglycemia Heparin Sodium (Porcine) (Heparin Flush) 2 ml IV Q12 [facility] Last Admin: 01/27/18 08:14 Dose: 2 ml Piperacillin Sod/Tazobactam (Sod 3.375 gm/ Dextrose) 50 mls @ 100 mls/hr IV Q6H [facility] Last Admin: 01/27/18 13:25 Dose: 100 mls/hr Vancomycin HCl 1,000 mg/ (Sodium Chloride) 250 mls @ 250 mls/hr IV Q12H [facility] Last Admin: 01/27/18 11:44 Dose: 250 mls/hr Insulin Glargine (Lantus) 15 unit SQ HS [facility] Insulin Human Lispro (Humalog) 0 unit SQ ACHS [facility] PRN Reason: Protocol Last Admin: 01/27/18 12:17 Dose: 6 unit Lorazepam (Ativan) 1 mg PO Q8HP PRN PRN Reason: ANXIETY/SEDATION Last Admin: 01/26/18 20:57 Dose: 1 mg Metformin HCl (Glucophage) 1,000 mg PO BIDCC [facility] Methocarbamol (Robaxin) 750 mg PO TIDP PRN PRN Reason: Muscle Spasm Last Admin: 01/25/18 21:32 Dose: 750 mg Ondansetron HCl (Zofran) 4 mg IV Q4-6HP PRN PRN Reason: Nausea And Vomiting Oxycodone HCl (Roxicodone) 5 mg PO Q4HP PRN PRN Reason: PAIN LEVEL 3-6 Last Admin: 01/26/18 13:55 Dose: 5 mg Pantoprazole Sodium (Protonix) 40 mg PO QAMAC [facility] Last Admin: 01/27/18 08:13 Dose: 40 mg Potassium Chloride (Kdur) 20 meq PO DAILY [facility] Last Admin: 01/27/18 09:29 Dose: 20 meq Pregabalin (Lyrica) 75 mg PO HS [facility] Last Admin: 01/26/18 20:57 Dose: 75 mg Sodium Chloride (Saline Flush) 10 ml IV UD PRN PRN Reason: FLUSH Sodium Chloride (Saline Flush) 10 ml IV Q12 [facility] Last Admin: 01/27/18 09:30 Dose: 10 ml Vancomycin HCl (Vancomycin Per Pharmacy) 1 order IV UD JENNIFER - ABG Interpretation ABG results: 01/23/18 20:11 ABG Methemoglobin 0.3 L VBG pH 7.47 H VBG pCO2 31.3 L VBG pO2 105 H VBG HCO3 22.3 L VBG Total CO2 23.3 L VBG O2 Saturation 94.8 H VBG Base Excess -0.8 Medical - PN: A/P - Time Spent With Patient Total time spent is greater than 50% in coordination of care (as documented) at patient's floor/unit and/or counseling patient: - Narrative A/P Narrative: A/P Narrative: 77-year-old with following problems: Sepsis- resolved, secondary to infected left foot, ankle septic arthritis Blood cx strep, gonzáles sensitive, Blood cultures: strep. Identification and sens pending. Grew enterococcus and post str in 2016. Not sens to imipenem 01/22: Vanco and Ertapenem 01/23: will switch to Vanco and Zosyn 01/25: group B strep. D/C Vanco. Cont Zosyn 01/26: Given that patient also has possible septic arthritis, resume vancomycin 01/27- Continue antibiotics, low grade fever this AM. - L mid-foot swelling and erythema Recurrent infections since 2016 (as per record) Last admission at [facility] 01/23: d/w dr Chilango Escobar: remove sutures. Not available for consult due to being [place]. MRI confirms diagnosis of osteomyelitis. 01/24: wound debrided, I/D by Kendy Suarez. Case d/w dr Escobar: cont medical management Case d/w ID: cont Zosyn.Repeat Blood cultures obtained 01/23 Echo: nl. No vegetations 01/26: Not sure if repeat wound cx was sent after wound debridement, I am unable to find a note/documentation for same either. 01/27: Continue antbioitcs and management per wound care Ankle effusion (possible septic arthritis) Noted on MRI, not documentation to that effect so far, get ankle aspiration, send workup if suggestive of infection, get ortho consult for possible joint clean up. 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 Either way is covered with ABX Diabetic Ketoacidosis/ resolved Diabetes type 2, uncontrolled, : on lantus and ssi, held home dose of oral meds for now, titrate insulin to achieve better glycemic control. resume home oral meds metformin and glipizde. cut back on lantus to 15 qhs h/o ischemic colitis: denies abdominal pain. Peripheral Neuropathy: continue home meds Arthralgia/ generalized: start on celebrex for same, add jennifer tylenol 1gm tid check c3, c4, and catarino, will avoid prednisone for now given acute infection. DVT enoxaparin Full code Medical - PN: Qual - VTE Deep Vein Thrombosis/Pulmonary Embolism Present on Admission: No
[2018-01-27 14:04] LABS: Complement C3 133.3 mg/dl (90-180)
[2018-01-27] MEDS: INSULIN GLARGINE, HUMAN 1 UNIT/0.01 ML SQ SCH ×2 (15:34→21:15)
[2018-01-27] MEDS: metFORMIN 500 MG TABLET PO SCH (17:22)
[2018-01-27] MEDS: glipiZIDE 5 MG TABLET PO SCH (17:22)
[2018-01-27] MEDS: PREGABALIN 75 MG CAPSULE PO SCH (21:14)
[2018-01-28] MEDS: PIPERACILLIN SODIUM/TAZOBACTAM 3.375 GM in DEXTROSE 5% IN WATER 50 ML IV SCH ×5 (00:03→23:49)
[2018-01-28 05:57] LABS: Basophils # (Auto) 0 K/mcL (0.0-0.3); Basophils % (Auto) 0 % (0.0-2.0); Eosinophils # (Auto) 0.3 K/mcL (0.0-0.7); Eosinophils % (Auto) 4.6 % (0.0-7.0); Granulocytes % (Auto) 83.1 % (38.0-78.0); Lymphocytes # (Auto) 0.5 K/mcL (1.5-4.8); Mean Cell Volume 77.2 fL (80.0-100.0); Mean Corpuscular HGB Conc 32.6 g/dL (31.0-36.0); Mean Corpuscular Hemoglobin 25.2 pg (26.0-34.0); Monocytes # (Auto) 0.4 K/mcL (0.1-0.9); Monocytes % (Auto) 5.3 % (1.0-12.0); Platelet Count 180 K/mcL (140-440); RBC 3.71 M/mcL (4.00-5.20); Red Cell Distribution Width 18.7 % (11.5-14.5)
[2018-01-28 06:24] LABS: ALT/SGPT 38 U/l (0-40); Albumin 2.5 gm/dL (3.2-5.2); Albumin/Globulin Ratio 0.9 (1.0-2.3); Alkaline Phosphatase 93 U/L (39-117); Bilirubin,Direct < 0.2 mg/dL (0.0-0.3); Blood Urea Nitrogen 17 mg/dl (8-23); Gamma Glutamyl Transpeptidase 14 U/L (5-36); Uric Acid 1.9 mg/dL (2.5-8.0)
[2018-01-28] MEDS: glipiZIDE 5 MG TABLET PO SCH ×2 (07:40→17:44)
[2018-01-28] MEDS: PANTOPRAZOLE 40 MG TABLET PO SCH (07:40)
[2018-01-28] MEDS: metFORMIN 500 MG TABLET PO SCH ×2 (07:40→17:44)
[2018-01-28] MEDS: INSULIN LISPRO 1 UNIT/0.01 ML UNIT SQ SCH ×4 (07:41→21:24)
[2018-01-28] MEDS: VANCOMYCIN 1,000 MG in 0.9 % SODIUM CHLORIDE 250 ML IV SCH ×2 (08:38→21:35)
[2018-01-28] MEDS: POTASSIUM CHLORIDE 20 MEQ TABLET PO SCH (08:40)
[2018-01-28] MEDS: ACETAMINOPHEN 500 MG TABLET PO SCH ×3 (08:40→21:24)
[2018-01-28] MEDS: CELECOXIB 200 MG CAPSULE PO SCH (08:41)
[2018-01-28] MEDS: ENOXAPARIN 40 MG/0.4 ML SYRINGE SQ SCH (08:41)
[2018-01-28] MEDS: DOCUSATE SODIUM 100 MG CAPSULE PO SCH ×2 (08:41→21:27)
--- NOTE | 2018-01-28 10:17 | XRay Report ---
CLINICAL INFORMATION: Fever COMPARISON: 01/26/2018 FINDINGS: Moderate cardiomegaly is unchanged. Moderate size hiatal hernia is again noted. Mediastinum and pulmonary vessels are normal. PICC line in stable satisfactory position. Minor bibasilar airspace disease has developed - possibly infiltrates. No effusion IMPRESSION: Mild developing bibasilar airspace disease atelectasis versus infiltrate Moderate hiatal hernia - stable Interpreted and Authenticated by: Dash Morel 01/28/18
--- NOTE | 2018-01-28 10:20 | Internal Med Progress Note ---
Medical - PN: Subj Patient information: Note initiated : 01/28/18 at 10:14 am Service Date, if different from initiated Date: [] Patient: Xenia Morgan 77 y/o F admitted on 01/22/18 for Fever,Weakness, Elevated BG/Sepsis,Infected L Foot. Chief Complaint: [] Interval history: 01/22: Admitted with the following problems: ACUTE: - Sepsis, likely from infected L foot - L mid-foot swelling and erythema Recurrent infections since 2015 (as per record) Last admission at [facility] 2015 - Diabetic Ketoacidosis CHRONIC: - Type 2 IDDM - Neuropathy - Hx of ischemic colitis - hx of breast cancer 2010 PLAN: - empiric Vancomycin and Ertapenem - Insulin gtt - IVF - MRI foot in am - consult podiatry in am - DVT prophylaxis: Lovenox 01/23: T max 101 SBP > 100, but tachycardic 110's Patient appears ill. D/w dr Donis Escobar (podiatry): recommended removal of sutures. Is [place]-of-town and unable to see patient. MRI foot; c/w osteomyelitis. Previous wound culture (2015) showed strep viridans, enterococcus and coag neg staph. Will switch Ertapenem with Zosyn 01/24: Patient is still weak, but feeling better. Afebrile overnight. Still soft BP. Eating now. Appreciate Kendy Suarez help with debridement of L foot, and discussing case with dr Escobar. Case d/w Dru De Luna (ID): agrees with Vancomycin and Zosyn till identif and sens determined. 01/25: Still weak, but feeling better. No temp spikes. Hemodynamics stable. Blood c/s: strep group B Plan: d/c vanco. On Zosyn. Could probably change to Ertapenem. D/C jacques cath Tx to [facility] 01/26 Patient seen and examined, still quite a bit weak. She complains of generalized pain, movement of the bed also causes severe pain. She notes pain in every joint in the body generalized myalgia and arthralgia. The patient remains afebrile, blood culture positive for strep off vancomycin and Zosyn for now. PICC line to be placed today, repeat cultures have been negative Start the patient on celecoxib for generalized arthralgia MRI of the patient reviewed, pt has osteomyelitis, but also ankle joint possible septic arthritis. I do not see any documentation for same not do I see any aspiration of the ankle joint. We do not have podiatry available according to recent notes will get ankle joint aspirated and sent for analysis. If suggestive for infection, consult ortho. 01/27 Patient seen and examined, quite weak, still has generalized aches and pains. She notes that whenever she moves everything hurts. Celecoxib did not help much , will keep her on scheduled Tylenol as well as give her a dose of ketorolac today to see if that helps. Check C3-C4 and CATARINO panel. Reviewed the case with wound care consult, they were aware of the effusion in the ankle and it seems that Dr. 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 The fluid was stopped, WBC count is 10,000, neutrophils are 90%. Clotted hemorrhagic sample. Patient is already on antibiotics at this point. Only 5 cc of fluid was aspirated. Patient had a low-grade temperature this morning, will continue to monitor for now. Anticipate discharge to sniff tomorrow if fever curve improves and patient's pain control is adequate 01/28 Patient seen and examined, still quite weak still has generalized aches and pains some improvement compared to yesterday. Patient had a fever of 101 today. Chest x-ray done, repeat blood cultures ordered. Patient's on antibiotics. C3-C4 is negative. Given that the patient has distal osteomyelitis of the tibia fibula, ankle effusion, I will consult orthopedics today to see if this needs to be drained. Continue antibiotics. Pertinent ROS: Denies headache, dizziness Denies chest pain, palpitations Denies cough or shortness of breath Denies abdominal pain, nausea or vomiting. - Constitutional Vitals: Vital Signs Temp Pulse Resp BP Pulse Ox 97.8 F 89 16 144/70 87 L 01/28/18 08:52 01/28/18 04:00 01/28/18 07:19 01/28/18 07:19 01/28/18 07:19 Period Temp Pulse Resp BP Sys/Guzman Pulse Ox Last 24 Hr 97.2 F-101.4 F 75-89 16-18 110-144/64-72 87-95 Intake and Output 01/27/18 01/28/18 01/28/18 21:59 05:59 13:59 Intake Total 680 / 680 550 / 550 Output Total 375 / 375 475 / 475 Balance 305 / 305 75 / 75 Weight 187 lb 8 oz Intake & Output: Intake & Output 01/27/18 01/28/18 01/28/18 21:59 05:59 13:59 Intake Total 680 / 680 550 / 550 Output Total 375 / 375 475 / 475 Balance 305 / 305 75 / 75 Weight 187 lb 8 oz Intake: IV 50 / 50 300 / 300 Zosyn 3.375 gm In Dextrose 5% 50 / 50 50 / 50 in Water 50 ml @ 100 mls/hr IV Q6H JENNIFER Rx#:[id number] Vancomycin 1,000 mg In Sodium 250 / 250 Chloride 0.9% 250 ml @ 250 mls/ hr IV Q12H JENNIFER Rx#:[id number] Oral 630 / 630 250 / 250 Output: Urine Catheter Amount 375 / 375 475 / 475 Other: Meal Lunch Percent of Meal Consumed 50% Feeding Ability Assist with Tray Set Up # of times incontinent of 1 1 Bowels Exam: Constitutional; Afebrile, cooperative, alert, not in distress. sweating, Eyes- No icterus, , No periorbital swelling Ears- Ext ear normal, hearing normal to conversation. Neck- Midline trachea, supple Respiratory system: Air Entry equal on both sides, No crackles or wheezing, no rhonchi. CVS- Rate rhythm regular, S1,S2 heard, no gallop, no rub. Abdomen- Soft nontender abdomen, no organomegaly, no tenderness, no guarding or rigidity, INFORMATION MANAGEMENT OFFICER- AOOx3, moving all extremities, no gross focal deficit noted. Medical - PN: Obj Da - Labs CBC & Chem 7: 01/28/18 04:00 01/28/18 04:00 Labs: Abnormal Lab Results 01/28/18 01/28/18 01/27/18 04:00 04:00 04:00 RBC 3.71 L Hgb 9.3 L Hct 28.7 L MCV 77.2 L MCH 25.2 L RDW 18.7 H Plt Count Gran % 83.1 H Lymph % (Auto) 7.0 L Lymph # (Auto) 0.5 L ESR Glucose 127 H 182 H Uric Acid 1.9 L 1.7 L Calcium 8.1 L 8.0 L Phosphorus 2.6 L Magnesium 1.5 L AST ALT 45 H Lactate Dehydrogenase 300 H 342 H Total Creatine Kinase C-Reactive Protein Total Protein 5.4 L 5.3 L Albumin 2.5 L 2.2 L Albumin/Globulin Ratio 0.9 L 0.7 L Synovial Neutrophils 01/27/18 01/26/18 01/26/18 04:00 16:21 03:30 RBC 3.69 L Hgb 9.6 L Hct 28.2 L MCV 76.5 L MCH RDW 18.9 H Plt Count 132 L Gran % 79.9 H Lymph % (Auto) 8.9 L Lymph # (Auto) 0.6 L ESR Glucose Uric Acid Calcium Phosphorus Magnesium AST ALT Lactate Dehydrogenase Total Creatine Kinase 373 H C-Reactive Protein Total Protein Albumin Albumin/Globulin Ratio Synovial Neutrophils 90 H 01/26/18 01/26/18 01/26/18 03:30 03:30 03:30 RBC Hgb Hct MCV MCH RDW Plt Count Gran % Lymph % (Auto) Lymph # (Auto) ESR 72 H Glucose 184 H Uric Acid 2.0 L Calcium 8.1 L Phosphorus 2.0 L Magnesium AST 60 H ALT 58 H Lactate Dehydrogenase 363 H Total Creatine Kinase C-Reactive Protein 17.3 H Total Protein 5.5 L Albumin 2.5 L Albumin/Globulin Ratio 0.8 L Synovial Neutrophils 01/26/18 03:30 RBC 3.76 L Hgb 9.6 L Hct 28.5 L MCV 75.9 L MCH 25.6 L RDW 19.3 H Plt Count 111 L Gran % 79.6 H Lymph % (Auto) 9.2 L Lymph # (Auto) 0.5 L ESR Glucose Uric Acid Calcium Phosphorus Magnesium AST ALT Lactate Dehydrogenase Total Creatine Kinase C-Reactive Protein Total Protein Albumin Albumin/Globulin Ratio Synovial Neutrophils Meds: Medications Acetaminophen (Tylenol) 1,000 mg PO TID [facility] Last Admin: 01/28/18 08:40 Dose: 1,000 mg Celecoxib (Celebrex) 200 mg PO DAILY [facility] Last Admin: 01/28/18 08:41 Dose: 200 mg Dextrose (Dextrose 50%) 0 ml IV UD PRN PRN Reason: Hypoglycemia Diagnostic Test (Pha) (Accu-Chek) 1 each FS ACHS [facility] Last Admin: 01/28/18 07:40 Dose: 1 each Docusate Sodium (Colace) 100 mg PO BID [facility] Last Admin: 01/28/18 08:41 Dose: Not Given Enoxaparin Sodium (Lovenox) 40 mg SQ DAILY [facility] Last Admin: 01/28/18 08:41 Dose: 40 mg Glipizide (Glucotrol) 5 mg PO BIDAC [facility] Last Admin: 01/28/18 07:40 Dose: 5 mg Glucose (Insta-Glucose) 15 gm PO PRN PRN PRN Reason: Hypoglycemia Heparin Sodium (Porcine) (Heparin Flush) 2 ml IV Q12 [facility] Last Admin: 01/28/18 08:41 Dose: 2 ml Piperacillin Sod/Tazobactam (Sod 3.375 gm/ Dextrose) 50 mls @ 100 mls/hr IV Q6H [facility] Last Admin: 01/28/18 05:05 Dose: 100 mls/hr Vancomycin HCl 1,000 mg/ (Sodium Chloride) 250 mls @ 250 mls/hr IV Q12H [facility] Last Admin: 01/28/18 08:38 Dose: 250 mls/hr Insulin Glargine (Lantus) 15 unit SQ [facility] Last Admin: 01/27/18 21:15 Dose: 15 unit Insulin Human Lispro (Humalog) 0 unit SQ ACHS [facility] PRN Reason: Protocol Last Admin: 01/28/18 07:41 Dose: Not Given Lorazepam (Ativan) 1 mg PO Q8HP PRN PRN Reason: ANXIETY/SEDATION Last Admin: 01/26/18 20:57 Dose: 1 mg Metformin HCl (Glucophage) 1,000 mg PO BIDCC [facility] Last Admin: 01/28/18 07:40 Dose: 1,000 mg Methocarbamol (Robaxin) 750 mg PO TIDP PRN PRN Reason: Muscle Spasm Last Admin: 01/25/18 21:32 Dose: 750 mg Ondansetron HCl (Zofran) 4 mg IV Q4-6HP PRN PRN Reason: Nausea And Vomiting Oxycodone HCl (Roxicodone) 5 mg PO Q4HP PRN PRN Reason: PAIN LEVEL 3-6 Last Admin: 01/26/18 13:55 Dose: 5 mg Pantoprazole Sodium (Protonix) 40 mg PO QAMAC [facility] Last Admin: 01/28/18 07:40 Dose: 40 mg Potassium Chloride (Kdur) 20 meq PO DAILY [facility] Last Admin: 01/28/18 08:40 Dose: 20 meq Pregabalin (Lyrica) 75 mg PO HS [facility] Last Admin: 01/27/18 21:14 Dose: 75 mg Sodium Chloride (Saline Flush) 10 ml IV UD PRN PRN Reason: FLUSH Last Admin: 01/28/18 08:42 Dose: 10 ml Sodium Chloride (Saline Flush) 10 ml IV Q12 JENNIFER Last Admin: 01/27/18 21:15 Dose: 10 ml Vancomycin HCl (Vancomycin Per Pharmacy) 1 order IV UD JENNIFER - ABG Interpretation ABG results: 01/23/18 20:11 ABG Methemoglobin 0.3 L VBG pH 7.47 H VBG pCO2 31.3 L VBG pO2 105 H VBG HCO3 22.3 L VBG Total CO2 23.3 L VBG O2 Saturation 94.8 H VBG Base Excess -0.8 Medical - PN: A/P - Time Spent With Patient Total time spent is greater than 50% in coordination of care (as documented) at patient's floor/unit and/or counseling patient: - Narrative A/P Narrative: A/P Narrative: 77-year-old with following problems: Sepsis- resolved, secondary to infected left foot, ankle septic arthritis Blood cx strep, gonzáles sensitive, Blood cultures: strep. Identification and sens pending. Grew enterococcus and post str in 2016. Not sens to imipenem 01/22: Vanco and Ertapenem 01/23: will switch to Vanco and Zosyn 01/25: group B strep. D/C Vanco. Cont Zosyn 01/26: Given that patient also has possible septic arthritis, resume vancomycin 01/27- Continue antibiotics, low grade fever this AM. 01/28: Continue abx, patient still has fever, but wbc count is normal, repeat Blood cx, get cxr chest, - L mid-foot swelling and erythema Recurrent infections since 2016 (as per record) Last admission at [facility] 01/23: d/w dr Chilango Escobar: remove sutures. Not available for consult due to [place]. MRI confirms diagnosis of osteomyelitis. 01/24: wound debrided, I/D by Kendy Suarez. Case d/w dr Escobar: cont medical management Case d/w ID: cont Zosyn.Repeat Blood cultures obtained 01/23 Echo: nl. No vegetations 01/26: Not sure if repeat wound cx was sent after wound debridement, I am unable to find a note/documentation for same either. 01/27: Continue antbioitcs and management per wound care 01/28: given continued fever, and possibility of ankle septic arthritis, consult ortho, for evaluation. Ankle effusion (possible septic arthritis) Noted on MRI, not documentation to that effect so far, get ankle aspiration, send workup if suggestive of infection, get ortho consult for possible joint clean up. 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 Either way is covered with ABX Consult ortho for sepitic arthritis, distal tibia fibula osteomyelitis. Diabetic Ketoacidosis/ resolved Diabetes type 2, uncontrolled, : on lantus and ssi, held home dose of oral meds for now, titrate insulin to achieve better glycemic control. resume home oral meds metformin and glipizde. cut back on lantus to 15 qhs glucose this AM was 121, overnight was high, monitor. h/o ischemic colitis: denies abdominal pain. Peripheral Neuropathy: continue home meds Arthralgia/ generalized: start on celebrex for same, add jennifer tylenol 1gm tid c3 , c 4 neg, catarino neg, on oxycodone too for pain management, try low dose of amitrypline to see if this helps. DVT enoxaparin Full code Medical - PN: Qual - VTE Deep Vein Thrombosis/Pulmonary Embolism Present on Admission: No
[2018-01-28] MEDS: 0.9 % SODIUM CHLORIDE 10 ML SYRINGE IV SCH ×2 (12:40→21:26)
--- NOTE | 2018-01-28 15:00 | Consultation ---
DATE OF CONSULTATION: 01/28/2018 DATE OF : 1940. CHIEF COMPLAINT: Fever, weakness, left foot and ankle pain. HISTORY OF PRESENT ILLNESS: This is a 77-year-old female who presented to the Emergency Department with fever, weakness, left foot pain, and was found to be septic. I was consulted by Dr. Pitts regarding her left foot and ankle. She denies any fever, chills or other symptoms currently, though she did initially have these systemic symptoms. PAST MEDICAL HISTORY: Significant for diabetes with neuropathy. She is an uncontrolled diabetic. PHYSICAL EXAMINATION: GENERAL: The patient appears comfortable and is lying supine in bed. She does not appear to be in any significant distress. She does appear to be somewhat diaphoretic, though the room temperature does seem to be elevated as well. HEENT: Head is normocephalic and atraumatic. Eyes: Pupils are equal and reactive to light and accommodation. Ears, nose and throat are otherwise unremarkable. CARDIOVASCULAR: The heart has regular rate and rhythm without murmur. RESPIRATORY: The lungs are clear to auscultation bilaterally. No wheezes, rhonchi or rales heard. ABDOMEN: Soft, nontender, nondistended, and no tenderness to palpation. Bowel sounds in all four quadrants. MUSCULOSKELETAL: The left lower extremity inspection reveals diffuse swelling throughout the foot and ankle. The ankle is nontender to palpation and nontender with both passive and active range of motion, though range of motion is somewhat limited. There is a diabetic foot ulcer on the plantar aspect of the lateral left foot that does not show any signs of infection. It is without erythema or drainage and is currently packed. Distal sensation, capillary refill, and pulses are normal. LABS: Her CBC does not reveal any elevated white blood cell count. IMAGING: MRI of the left foot does show some increased signal in the distal fibula, tibia and talus with potential osteomyelitis; however, I do think there is a fair chance it is not osteomyelitis as it does involve all three bones. It is more likely to be Charcot foot. MEDICATIONS: She does have an extensive medication list; please refer to the H and P for these. ASSESSMENT: 1. Left ankle effusion does appear to be chronic. 2. Left diabetic foot ulcer. PLAN: Joint aspiration of the left ankle. Cultures are pending, though preliminary results do not show any positivity. She is currently receiving IV antibiotics, which include Zosyn and vancomycin for broad spectrum coverage. If her cultures do end up being positive, it is reasonable to consider a left ankle arthroscopy, which would be performed by Dr. Fenton. We will continue to monitor her for sepsis and she will continue the broad spectrum antibiotics until culture results are confirmed. She will follow up with Dr. Fenton or in the clinic within approximately 1 week. At this point, we will hold off on an I and D of the left ankle/foot. The patient agreed to this plan. Her questions were addressed. ISIDRO:hector Job ID: [id number] Doc ID: [id number] Mansoor Naqvi PA-C
[2018-01-28] MEDS: PREGABALIN 75 MG CAPSULE PO SCH (21:25)
[2018-01-28] MEDS: AMITRIPTYLINE 10 MG TABLET PO SCH (21:25)
[2018-01-28] MEDS: INSULIN GLARGINE, HUMAN 1 UNIT/0.01 ML SQ SCH (21:26)
[2018-01-29 05:33] LABS: Basophils # (Auto) 0 K/mcL (0.0-0.3); Basophils % (Auto) 0 % (0.0-2.0); Eosinophils # (Auto) 0.4 K/mcL (0.0-0.7); Eosinophils % (Auto) 5.4 % (0.0-7.0); Lymphocytes # (Auto) 0.5 K/mcL (1.5-4.8); Lymphocytes % (Auto) 7.2 % (15.5-49.0); Mean Cell Volume 76.9 fL (80.0-100.0); Mean Corpuscular HGB Conc 32.7 g/dL (31.0-36.0); Mean Corpuscular Hemoglobin 25.2 pg (26.0-34.0); Monocytes # (Auto) 0.4 K/mcL (0.1-0.9); Monocytes % (Auto) 5.4 % (1.0-12.0); Platelet Count 236 K/mcL (140-440); RBC 3.72 M/mcL (4.00-5.20); Red Cell Distribution Width 18.8 % (11.5-14.5)
[2018-01-29 05:44] LABS: ALT/SGPT 31 U/l (0-40); Albumin 2.4 gm/dL (3.2-5.2); Albumin/Globulin Ratio 0.8 (1.0-2.3); Alkaline Phosphatase 97 U/L (39-117); Bilirubin,Direct < 0.2 mg/dL (0.0-0.3); Blood Urea Nitrogen 16 mg/dl (8-23); Gamma Glutamyl Transpeptidase 15 U/L (5-36); Uric Acid 1.8 mg/dL (2.5-8.0)
[2018-01-29] MEDS: PIPERACILLIN SODIUM/TAZOBACTAM 3.375 GM in DEXTROSE 5% IN WATER 50 ML IV SCH ×4 (05:51→23:20)
[2018-01-29] MEDS: metFORMIN 500 MG TABLET PO SCH ×2 (08:43→16:34)
[2018-01-29] MEDS: ACETAMINOPHEN 500 MG TABLET PO SCH ×3 (08:43→21:35)
[2018-01-29] MEDS: CELECOXIB 200 MG CAPSULE PO SCH (08:43)
[2018-01-29] MEDS: PANTOPRAZOLE 40 MG TABLET PO SCH (08:44)
[2018-01-29] MEDS: glipiZIDE 5 MG TABLET PO SCH ×2 (08:44→16:34)
[2018-01-29] MEDS: DOCUSATE SODIUM 100 MG CAPSULE PO SCH ×2 (08:44→21:36)
[2018-01-29] MEDS: POTASSIUM CHLORIDE 20 MEQ TABLET PO SCH (08:45)
[2018-01-29] MEDS: 0.9 % SODIUM CHLORIDE 10 ML SYRINGE IV SCH ×3 (08:46→21:36)
[2018-01-29] MEDS: INSULIN LISPRO 1 UNIT/0.01 ML UNIT SQ SCH ×4 (08:46→21:37)
[2018-01-29] MEDS: ENOXAPARIN 40 MG/0.4 ML SYRINGE SQ SCH (08:47)
--- NOTE | 2018-01-29 10:31 | Internal Med Progress Note ---
Medical - PN: Subj Patient information: Note initiated : 01/29/18 at 10:29 am Service Date, if different from initiated Date: [] Patient: Xenia Morgan 77 y/o F admitted on 01/22/18 for Fever,Weakness, Elevated BG/Sepsis,Infected L Foot. Chief Complaint: [] Interval history: 01/22: Admitted with the following problems: ACUTE: - Sepsis, likely from infected L foot - L mid-foot swelling and erythema Recurrent infections since 2015 (as per record) Last admission at [facility] 2015 - Diabetic Ketoacidosis CHRONIC: - Type 2 IDDM - Neuropathy - Hx of ischemic colitis - hx of breast cancer 2010 PLAN: - empiric Vancomycin and Ertapenem - Insulin gtt - IVF - MRI foot in am - consult podiatry in am - DVT prophylaxis: Lovenox 01/23: T max 101 SBP > 100, but tachycardic 110's Patient appears ill. D/w dr Donis Escobar (podiatry): recommended removal of sutures. Is out-of-town and unable to see patient. MRI foot; c/w osteomyelitis. Previous wound culture (2015) showed strep viridans, enterococcus and coag neg staph. Will switch Ertapenem with Zosyn 01/24: Patient is still weak, but feeling better. Afebrile overnight. Still soft BP. Eating now. Appreciate Kendy Suarez help with debridement of L foot, and discussing case with dr Escobar. Case d/w Dru De Luna (ID): agrees with Vancomycin and Zosyn till identif and sens determined. 01/25: Still weak, but feeling better. No temp spikes. Hemodynamics stable. Blood c/s: strep group B Plan: d/c vanco. On Zosyn. Could probably change to Ertapenem. D/C jacques cath Tx to [facility] 01/26 Patient seen and examined, still quite a bit weak. She complains of generalized pain, movement of the bed also causes severe pain. She notes pain in every joint in the body generalized myalgia and arthralgia. The patient remains afebrile, blood culture positive for strep off vancomycin and Zosyn for now. PICC line to be placed today, repeat cultures have been negative Start the patient on celecoxib for generalized arthralgia MRI of the patient reviewed, pt has osteomyelitis, but also ankle joint possible septic arthritis. I do not see any documentation for same not do I see any aspiration of the ankle joint. We do not have podiatry available according to recent notes will get ankle joint aspirated and sent for analysis. If suggestive for infection, consult ortho. 01/27 Patient seen and examined, quite weak, still has generalized aches and pains. She notes that whenever she moves everything hurts. Celecoxib did not help much , will keep her on scheduled Tylenol as well as give her a dose of ketorolac today to see if that helps. Check C3-C4 and CATARINO panel. Reviewed the case with wound care consult, they were aware of the effusion in the ankle and it seems that Dr. 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 The fluid was stopped, WBC count is 10,000, neutrophils are 90%. Clotted hemorrhagic sample. Patient is already on antibiotics at this point. Only 5 cc of fluid was aspirated. Patient had a low-grade temperature this morning, will continue to monitor for now. Anticipate discharge to sniff tomorrow if fever curve improves and patient's pain control is adequate 01/28 Patient seen and examined, still quite weak still has generalized aches and pains some improvement compared to yesterday. Patient had a fever of 101 today. Chest x-ray done, repeat blood cultures ordered. Patient's on antibiotics. C3-C4 is negative. Given that the patient has distal osteomyelitis of the tibia fibula, ankle effusion, I will consult orthopedics today to see if this needs to be drained. Continue antibiotics. 01/29 Patient seen and examined, still quite weak however doing better compared to yesterday. Low-grade temperature but not more than 100 today. Patient's blood work is stable. I reviewed the case with orthopedics yesterday. There is a possibility this might be Charcot joint or could be septic arthritis difficult to tell at this point. They will follow-up with the patient in the clinic. I reviewed the case with Dr. Fenton who is a foot surgeon. He was willing to take the patient to the OR tomorrow to debride the joint however the patient noted that she would not like to be seen by Dr. Fenton. She will continue IV antibiotics. Repeat blood cultures are still pending. Anticipate discharge tomorrow if remains afebrile. The patient was started on amitriptyline last night she seemed to have tolerated it well. Generalized arthralgia has overall improved. She only has back pain now which is a chronic issue which she notes has gotten worse as she has been lying in bed. She denies any bowel bladder incontinence, denies any new weakness in lower extremities Pertinent ROS: Denies headache, dizziness Denies chest pain, palpitations Denies cough or shortness of breath Denies abdominal pain, nausea or vomiting. - Constitutional Vitals: Vital Signs Temp Pulse Resp BP Pulse Ox 98.8 F 89 18 142/72 90 01/29/18 07:10 01/29/18 04:00 01/29/18 07:10 01/29/18 07:10 01/29/18 07:10 Period Temp Pulse Resp BP Sys/Guzman Pulse Ox Last 24 Hr 97.0 F-99.5 F 77-89 16-20 128-142/58-72 90-93 Intake and Output 01/28/18 01/29/18 01/29/18 21:59 05:59 13:59 Intake Total 550 / 550 1100 / 1100 530 / 530 Output Total 600 / 600 600 / 600 Balance -50 / -50 500 / 500 530 / 530 Weight 188 lb Intake & Output: Intake & Output 01/28/18 01/29/18 01/29/18 21:59 05:59 13:59 Intake Total 550 / 550 1100 / 1100 530 / 530 Output Total 600 / 600 600 / 600 Balance -50 / -50 500 / 500 530 / 530 Weight 188 lb Intake: IV 50 / 50 300 / 300 50 / 50 Zosyn 3.375 gm In Dextrose 5% 50 / 50 50 / 50 50 / 50 in Water 50 ml @ 100 mls/hr IV Q6H JENNIFER Rx#:[id number] Vancomycin 1,000 mg In Sodium 250 / 250 Chloride 0.9% 250 ml @ 250 mls/ hr IV Q12H JENNIFER Rx#:[id number] Oral 800 / 800 480 / 480 GI Tube Flush 500 / 500 Output: Urine Catheter Amount 600 / 600 600 / 600 Other: Meal Breakfast Percent of Meal Consumed 100% Feeding Ability Independent Stool Size Moderate Stool Color Brown Stool Consistency Loose # of times incontinent of 1 1 Bowels Exam: Constitutional; Afebrile, cooperative, alert, not in distress. Eyes- No icterus, , No periorbital swelling Ears- Ext ear normal, hearing normal to conversation. Neck- Midline trachea, supple Respiratory system: Air Entry equal on both sides, No crackles or wheezing, no rhonchi. CVS- Rate rhythm regular, S1,S2 heard, no gallop, no rub. Abdomen- Soft nontender abdomen, no organomegaly, no tenderness, no guarding or rigidity, MASSAGE THERAPIST- AOOx3, moving all extremities, no gross focal deficit noted. Medical - PN: Obj Da - Labs CBC & Chem 7: 01/29/18 04:01/29/18 04:00 Labs: Abnormal Lab Results 01/29/18 01/29/18 01/28/18 04:00 04:00 04:00 RBC 3.72 L Hgb 9.4 L Hct 28.6 L MCV 76.9 L MCH 25.2 L RDW 18.8 H Plt Count Gran % 82.0 H Lymph % (Auto) 7.2 L Lymph # (Auto) 0.5 L Glucose 158 H 127 H Uric Acid 1.8 L 1.9 L Calcium 8.0 L 8.1 L Phosphorus 2.6 L Magnesium ALT Lactate Dehydrogenase 263 H 300 H Total Creatine Kinase Total Protein 5.6 L 5.4 L Albumin 2.4 L 2.5 L Albumin/Globulin Ratio 0.8 L 0.9 L Synovial Neutrophils 01/28/18 01/27/18 01/27/18 04:00 04:00 04:00 RBC 3.71 L 3.69 L Hgb 9.3 L 9.6 L Hct 28.7 L 28.2 L MCV 77.2 L 76.5 L MCH 25.2 L RDW 18.7 H 18.9 H Plt Count 132 L Gran % 83.1 H 79.9 H Lymph % (Auto) 7.0 L 8.9 L Lymph # (Auto) 0.5 L 0.6 L Glucose 182 H Uric Acid 1.7 L Calcium 8.0 L Phosphorus 2.6 L Magnesium 1.5 L ALT 45 H Lactate Dehydrogenase 342 H Total Creatine Kinase Total Protein 5.3 L Albumin 2.2 L Albumin/Globulin Ratio 0.7 L Synovial Neutrophils 01/26/18 01/26/18 16:21 03:30 RBC Hgb Hct MCV MCH RDW Plt Count Gran % Lymph % (Auto) Lymph # (Auto) Glucose Uric Acid Calcium Phosphorus Magnesium ALT Lactate Dehydrogenase Total Creatine Kinase 373 H Total Protein Albumin Albumin/Globulin Ratio Synovial Neutrophils 90 H Meds: Medications Acetaminophen (Tylenol) 1,000 mg PO TID [facility] Last Admin: 01/29/18 08:43 Dose: 1,000 mg Amitriptyline HCl (Elavil) 10 mg PO HS [facility] Last Admin: 01/28/18 21:25 Dose: 10 mg Celecoxib (Celebrex) 200 mg PO DAILY [facility] Last Admin: 01/29/18 08:43 Dose: 200 mg Dextrose (Dextrose 50%) 0 ml IV UD PRN PRN Reason: Hypoglycemia Diagnostic Test (Pha) (Accu-Chek) 1 each FS ACHS [facility] Last Admin: 01/29/18 08:46 Dose: 1 each Docusate Sodium (Colace) 100 mg PO BID [facility] Last Admin: 01/29/18 08:44 Dose: 100 mg Enoxaparin Sodium (Lovenox) 40 mg SQ DAILY [facility] Last Admin: 01/29/18 08:47 Dose: 40 mg Glipizide (Glucotrol) 5 mg PO BIDAC [facility] Last Admin: 01/29/18 08:44 Dose: 5 mg Glucose (Insta-Glucose) 15 gm PO PRN PRN PRN Reason: Hypoglycemia Heparin Sodium (Porcine) (Heparin Flush) 2 ml IV Q12 [facility] Last Admin: 01/29/18 08:45 Dose: 2 ml Piperacillin Sod/Tazobactam (Sod 3.375 gm/ Dextrose) 50 mls @ 100 mls/hr IV Q6H [facility] Last Infusion: 01/29/18 06:26 Dose: Infused Vancomycin HCl 1,000 mg/ (Sodium Chloride) 250 mls @ 250 mls/hr IV Q12H [facility] Last Infusion: 01/28/18 22:45 Dose: Infused Insulin Glargine (Lantus) 15 unit SQ [facility] Last Admin: 01/28/18 21:26 Dose: 15 unit Insulin Human Lispro (Humalog) 0 unit SQ [facility] PRN Reason: Protocol Last Admin: 01/29/18 08:46 Dose: Not Given Lorazepam (Ativan) 1 mg PO Q8HP PRN PRN Reason: ANXIETY/SEDATION Last Admin: 01/26/18 20:57 Dose: 1 mg Metformin HCl (Glucophage) 1,000 mg PO BIDCC [facility] Last Admin: 01/29/18 08:43 Dose: 1,000 mg Methocarbamol (Robaxin) 750 mg PO TIDP PRN PRN Reason: Muscle Spasm Last Admin: 01/25/18 21:32 Dose: 750 mg Ondansetron HCl (Zofran) 4 mg IV Q4-6HP PRN PRN Reason: Nausea And Vomiting Oxycodone HCl (Roxicodone) 5 mg PO Q4HP PRN PRN Reason: PAIN LEVEL 3-6 Last Admin: 01/26/18 13:55 Dose: 5 mg Pantoprazole Sodium (Protonix) 40 mg PO QAMAC [facility] Last Admin: 01/29/18 08:44 Dose: 40 mg Potassium Chloride (Kdur) 20 meq PO DAILY [facility] Last Admin: 01/29/18 08:45 Dose: 20 meq Pregabalin (Lyrica) 75 mg PO HS [facility] Last Admin: 01/28/18 21:25 Dose: 75 mg Sodium Chloride (Saline Flush) 10 ml IV UD PRN PRN Reason: FLUSH Last Admin: 01/28/18 08:42 Dose: 10 ml Sodium Chloride (Saline Flush) 10 ml IV Q12 [facility] Last Admin: 01/29/18 09:28 Dose: 10 ml Vancomycin HCl (Vancomycin Per Pharmacy) 1 order IV UD JENNIFER - ABG Interpretation ABG results: 01/23/18 20:11 ABG Methemoglobin 0.3 L VBG pH 7.47 H VBG pCO2 31.3 L VBG pO2 105 H VBG HCO3 22.3 L VBG Total CO2 23.3 L VBG O2 Saturation 94.8 H VBG Base Excess -0.8 Medical - PN: A/P - Time Spent With Patient Total time spent is greater than 50% in coordination of care (as documented) at patient's floor/unit and/or counseling patient: - Narrative A/P Narrative: A/P Narrative: 77-year-old with following problems: Sepsis- resolved, secondary to infected left foot, ankle septic arthritis Blood cx strep, gonzáles sensitive, Blood cultures: strep. Identification and sens pending. Grew enterococcus and post str in 2016. Not sens to imipenem 01/22: Vanco and Ertapenem /2: will switch to Vanco and Zosyn 01/25: group B strep. D/C Vanco. Cont Zosyn 01/26: Given that patient also has possible septic arthritis, resume vancomycin 01/27- Continue antibiotics, low grade fever this AM. 01/28: Continue abx, patient still has fever, but wbc count is normal, repeat Blood cx, get cxr chest, 01/29: Chest x-ray showed atelectasis versus infiltrate. Patient is already on vancomycin and Zosyn. Strongly encouraged to use incentive spirometry. - L mid-foot swelling and erythema Recurrent infections since 2016 (as per record) Last admission at [facility] 01/23: d/w dr Chilango Escobar: remove sutures. Not available for consult due to being [place]. MRI confirms diagnosis of osteomyelitis. 01/24: wound debrided, I/D by Kendy Suarez. Case d/w dr Escobar: cont medical management Case d/w ID: cont Zosyn.Repeat Blood cultures obtained 01/23 Echo: nl. No vegetations 01/26: Not sure if repeat wound cx was sent after wound debridement, I am unable to find a note/documentation for same either. 01/27: Continue antbioitcs and management per wound care 01/28: given continued fever, and possibility of ankle septic arthritis, consult ortho, for evaluation. 01/29-case reviewed with R2. May need debridement or can just be monitored. Patient is on IV antibiotics. She refused to be seen by Dr. Fenton. 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 Could also be septic arthritis. Aspiration done. 10,000 WBC however it was a clotted sample. 90% neutrophils. Cultures are negative so far. Continue IV antibiotics Diabetic Ketoacidosis/ resolved Diabetes type 2, uncontrolled, : on lantus and ssi, held home dose of oral meds for now, titrate insulin to achieve better glycemic control. resume home oral meds metformin and glipizde. Increased dose of Lantus to 20 units nightly. Monitor glucose h/o ischemic colitis: denies abdominal pain. Peripheral Neuropathy: continue home meds Arthralgia/ generalized: started on celebrex for same, add jennifer tylenol 1gm tid c3, c 4 neg, catarino neg, on oxycodone too for pain management, low-dose admitted plain 10 mg nightly seems to have helped with her arthralgia. Continue same for now. DVT enoxaparin Full code Medical - PN: Qual - VTE Deep Vein Thrombosis/Pulmonary Embolism Present on Admission: No
[2018-01-29] MEDS: VANCOMYCIN 1,000 MG in 0.9 % SODIUM CHLORIDE 250 ML IV SCH ×2 (10:49→21:36)
[2018-01-29] MEDS ORDERED: INSULIN GLARGINE, HUMAN 1 UNIT/0.01 ML SQ SCH (21:00)
[2018-01-29] MEDS: PREGABALIN 75 MG CAPSULE PO SCH (21:36)
[2018-01-29] MEDS: AMITRIPTYLINE 10 MG TABLET PO SCH (21:36)
[2018-01-29] MEDS: LORazepam 1 MG TABLET PO PRN (23:25)
[2018-01-30] MEDS: PIPERACILLIN SODIUM/TAZOBACTAM 3.375 GM in DEXTROSE 5% IN WATER 50 ML IV SCH ×2 (05:22→11:56)
[2018-01-30 05:43] LABS: Basophils # (Auto) 0 K/mcL (0.0-0.3); Basophils % (Auto) 0.2 % (0.0-2.0); Eosinophils # (Auto) 0.3 K/mcL (0.0-0.7); Eosinophils % (Auto) 4.8 % (0.0-7.0); Granulocytes % (Auto) 84.3 % (38.0-78.0); Lymphocytes # (Auto) 0.4 K/mcL (1.5-4.8); Mean Cell Volume 76.9 fL (80.0-100.0); Mean Corpuscular HGB Conc 32.4 g/dL (31.0-36.0); Monocytes # (Auto) 0.3 K/mcL (0.1-0.9); Monocytes % (Auto) 4.7 % (1.0-12.0); Platelet Count 285 K/mcL (140-440); RBC 3.69 M/mcL (4.00-5.20); Red Cell Distribution Width 18.9 % (11.5-14.5)
[2018-01-30 06:27] LABS: ALT/SGPT 32 U/l (0-40); Albumin 2.3 gm/dL (3.2-5.2); Albumin/Globulin Ratio 0.7 (1.0-2.3); Alkaline Phosphatase 85 U/L (39-117); Bilirubin,Direct < 0.2 mg/dL (0.0-0.3); Blood Urea Nitrogen 10 mg/dl (8-23); Gamma Glutamyl Transpeptidase 13 U/L (5-36)
[2018-01-30] MEDS: PANTOPRAZOLE 40 MG TABLET PO SCH (07:38)
[2018-01-30] MEDS: glipiZIDE 5 MG TABLET PO SCH (07:38)
[2018-01-30] MEDS: INSULIN LISPRO 1 UNIT/0.01 ML UNIT SQ SCH ×2 (07:38→11:56)
[2018-01-30] MEDS: ACETAMINOPHEN 500 MG TABLET PO SCH (08:55)
[2018-01-30] MEDS: CELECOXIB 200 MG CAPSULE PO SCH (08:56)
[2018-01-30] MEDS: DOCUSATE SODIUM 100 MG CAPSULE PO SCH (08:56)
[2018-01-30] MEDS: metFORMIN 500 MG TABLET PO SCH (08:56)
[2018-01-30] MEDS: ENOXAPARIN 40 MG/0.4 ML SYRINGE SQ SCH (08:56)
[2018-01-30] MEDS: POTASSIUM CHLORIDE 20 MEQ TABLET PO SCH (08:56)
[2018-01-30] MEDS: 0.9 % SODIUM CHLORIDE 10 ML SYRINGE IV SCH ×3 (08:58→10:32)
--- NOTE | 2018-01-30 10:27 | Discharge Summary ---
Medical - DS: Prov Patient information: Note initiated : 01/30/18 at 10:23 am Service Date, if different from initiated Date: [] Patient: Xenia Morgan 77 y/o F admitted on 01/22/18 for Fever,Weakness, Elevated BG/Sepsis,Infected L Foot. Chief Complaint: [] Date of admission: 01/22/18 19:20 Discharge date: 01/30/18 Primary care physician: Wayne Bahena Consults: 01/24/18 10:15 Consult to Physician [CONS] Routine Comment: Consulting Provider: Kendy Suarez Reason For Exam: Physician to Consult 01/24/18 13:32 Consult to Physician [CONS] Routine Comment: L foot cellulitis, wound and osteomyelitis Consulting Provider: Kendy Suarez Reason For Exam: Physician to Consult Medical - DS: Meds - Discharge Medications Prescriptions: Piperacillin Sodium/Tazobactam [Zosyn] 3.375 gm IV Q6H #168 vial Vancomycin 1,000 mg IV Q12H 42 Days #84 vial Active and Home Medications: Home Medications Insulin Detemir [Levemir] 6 unit SQ HS 08/02/16 [History Confirmed 01/22/18 Last Taken 12/07/16 08:00] Pregabalin [Lyrica] 75 mg PO DAILY 08/02/16 [History Confirmed 01/22/18 Last Taken 12/06/16 21:00] glipiZIDE [Glucotrol] 5 mg PO BIDAC 08/02/16 [History Confirmed 01/22/18 Last Taken 12/07/16 08:00] metFORMIN HCL [Glumetza] 1,000 mg PO BID 08/02/16 [History Confirmed 01/22/18 Last Taken 12/07/16 08:00] Omeprazole [Prilosec] 20 mg PO DAILY 01/22/18 [History Confirmed 01/22/18 Last Taken Unknown] Piperacillin Sodium/Tazobactam [Zosyn] 3.375 gm IV Q6H #168 vial 01/30/18 [Rx Last Taken Unknown] Vancomycin 1,000 mg IV Q12H 42 Days #84 vial 01/30/18 [Rx Last Taken Unknown] Medical - DS: Hosp Hospital course: DISCHARGE DIAGNOSES * Sepsis- resolved, secondary to infected left foot, ankle septic arthritis * Streptococcus Bacteremia-gonzáles sensitive,surveillance cultures negative.on antibiotic coverage * septic arthritis on MRI-on vancomycin/Zosyn in light of underlying diabetes * L mid-foot swelling and erythema- Recurrent infections since 2016 (as per record) evaluated by Dr. Escobar in the past.Last admission at [facility] 2016. Not available for consult due to [place] MRI confirms diagnosis of osteomyelitis.status postwound debrided, I/D by Kendy Suarez 01/24. Case d/w dr Escobar: cont medical management . Case d/w ID: cont Zosyn.Repeat Blood cultures obtained 01/23 Echo: nl. No vegetations 01/26: Not sure if repeat wound cx was sent after wound debridement, I am unable to find a note/documentation for same either. 01/27: Continue antbioitcs and management per wound care-Zosyn and vancomycin for 6 weeks 01/28: given continued fever, and possibility of ankle septic arthritis, consult ortho, for evaluation however patient refused to be evaluated by Dr. Fenton orthopedics and insisting on following up as outpatient with Dr. Escobar and wound care. 01/29-case reviewed with R2. May need debridement or can just be monitored. Patient is on IV antibiotics for 6 weeks. She refused to be seen by Dr. Fenton. Was a foot surgeon. She will follow-up with orthopedics and a modeler 01/30 discharging with outpatient follow-up with ID/podiatry/orthopedic/wound care /PCP for continued management of above Ankle effusion (possible septic arthritis) Noted on MRi Likely Charcot joint with effusion. Could also be septic arthritis. Aspiration done. 10,000 WBC however it was a clotted sample. 90% neutrophils. Cultures are negative so far. Continue IV antibiotics Diabetic Ketoacidosis/ resolved Diabetes type 2, uncontrolled, : on lantus and ssi, held home dose of oral meds for now, titrate insulin to achieve better glycemic control. resume home oral meds metformin and glipizde. discharge on Lantus 20 units h/o ischemic colitis: denies abdominal pain. Peripheral Neuropathy: continue home meds Arthralgia/ generalized: started on celebrex for same, add jennifer tylenol 1gm tid c3, c 4 neg, catarino neg, on oxycodone too for pain management, low-dose admitted plain 10 mg nightly seems to have helped with her arthralgia. Continue same for now. BRIEF HOSPITAL COURSE Mr. Walker is a 77 year old F 01/23: T max 101 SBP > 100, but tachycardic 110's Patient appears ill. D/w dr Donis Escobar (podiatry): recommended removal of sutures. Is out-of-town and unable to see patient. MRI foot; c/w osteomyelitis. Previous wound culture (2016) showed strep viridans, enterococcus and coag neg staph. Will switch Ertapenem with Zosyn 01/24: Patient is still weak, but feeling better. Afebrile overnight. Still soft BP. Eating now. Appreciate Kendy Suarez help with debridement of L foot, and discussing case with dr Escobar. Case d/w Dru De Luna (ID): agrees with Vancomycin and Zosyn till identif and sens determined. 01/25: Still weak, but feeling better. No temp spikes. Hemodynamics stable. Blood c/s: strep group B Plan: d/c vanco. On Zosyn. Could probably change to Ertapenem. D/C jacques cath Tx to [facility] 01/26 Patient seen and examined, still quite a bit weak. She complains of generalized pain, movement of the bed also causes severe pain. She notes pain in every joint in the body generalized myalgia and arthralgia. The patient remains afebrile, blood culture positive for strep off vancomycin and Zosyn for now. PICC line to be placed today, repeat cultures have been negative Start the patient on celecoxib for generalized arthralgia MRI of the patient reviewed, pt has osteomyelitis, but also ankle joint possible septic arthritis. I do not see any documentation for same not do I see any aspiration of the ankle joint. We do not have podiatry available according to recent notes will get ankle joint aspirated and sent for analysis. If suggestive for infection, consult ortho. 01/27 Patient seen and examined, quite weak, still has generalized aches and pains. She notes that whenever she moves everything hurts. Celecoxib did not help much , will keep her on scheduled Tylenol as well as give her a dose of ketorolac today to see if that helps. Check C3-C4 and CATARINO panel. Reviewed the case with wound care consult, they were aware of the effusion in the ankle and it seems that Dr. 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 The fluid was stopped, WBC count is 10,000, neutrophils are 90%. Clotted hemorrhagic sample. Patient is already on antibiotics at this point. Only 5 cc of fluid was aspirated. Patient had a low-grade temperature this morning, will continue to monitor for now. Anticipate discharge to sniff tomorrow if fever curve improves and patient's pain control is adequate 01/28 Patient seen and examined, still quite weak still has generalized aches and pains some improvement compared to yesterday. Patient had a fever of 101 today. Chest x-ray done, repeat blood cultures ordered. Patient's on antibiotics. C3-C4 is negative. Given that the patient has distal osteomyelitis of the tibia fibula, ankle effusion, I will consult orthopedics today to see if this needs to be drained. Continue antibiotics. 01/29 Patient seen and examined, still quite weak however doing better compared to yesterday. Low-grade temperature but not more than 100 today. Patient's blood work is stable. I reviewed the case with orthopedics yesterday. There is a possibility this might be Charcot joint or could be septic arthritis difficult to tell at this point. They will follow-up with the patient in the clinic. I reviewed the case with Dr. Fenton who is a foot surgeon. He was willing to take the patient to the OR tomorrow to debride the joint however the patient noted that she would not like to be seen by Dr. Fenton. She will continue IV antibiotics. Repeat blood cultures are still pending. Anticipate discharge tomorrow if remains afebrile. The patient was started on amitriptyline last night she seemed to have tolerated it well. Generalized arthralgia has overall improved. She only has back pain now which is a chronic issue which she notes has gotten worse as she has been lying in bed. She denies any bowel bladder incontinence, denies any new weakness in lower extremities 01/30-patient doing better. Discharging to SNF for continued IV antibiotics. Patient will follow up with orthopedics/podiatry/wound care and infectious disease specialist on discharge. Continue PICC line care. Detailed discharge instructions as below. Discharge diagnosis: . - Time Spent with Patient Total time spent providing and/or coordinating discharge services: Greater than 30 minutes Medical - DS: Exam - Constitutional Vitals: Vital Signs Temp Pulse Resp BP Pulse Ox 04/09/18 06:38 99 F 20 145/72 93 01/30/18 03:56 99.5 F H 81 22 148/68 93 01/30/18 00:00 97.4 F 90 24 H 140/66 92 01/29/18 20:00 98.7 F 96 H 24 H 150/70 95 01/29/18 15:54 97.8 F 16 130/58 90 01/29/18 11:55 96.7 F L 18 132/72 94 Intake and Output 01/29/18 01/30/18 01/30/18 21:59 05:59 13:59 Intake Total 290 / 290 1050 / 1050 240 / 240 Output Total 1350 / 1350 1525 / 1525 950 / 950 Balance -1060 / -1060 -475 / -475 -710 / -710 Intake: IV 50 / 50 300 / 300 Zosyn 3.375 gm In Dextrose 5% 50 / 50 50 / 50 in Water 50 ml @ 100 mls/hr IV Q6H [facility] Rx#:[id number] Vancomycin 1,000 mg In Sodium 250 / 250 Chloride 0.9% 250 ml @ 250 mls/ hr IV Q12H [facility] Rx#:[id number] Oral 240 / 240 750 / 750 240 / 240 Output: Urine Catheter Amount 1350 / 1350 1525 / 1525 950 / 950 Uretheral (Jacques) 950 / 950 Other: Meal Dinner Breakfast Percent of Meal Consumed 75% 75% Feeding Ability Independent Assist with Tray Set Up Stool Size Large Small Stool Color Brown Brown Black Stool Consistency Formed Soft Loose Loose # of times incontinent of 1 1 Bowels Weight 187 lb Medical - DS: Data Labs on day of discharge: Labs from last 24 hours 01/30/18 01/30/18 04:00 04:00 WBC 7.3 RBC 3.69 L Hgb 9.2 L Hct 28.4 L MCV 76.9 L MCH 25.0 L MCHC 32.4 RDW 18.9 H Plt Count 285 MPV 7.6 Gran % 84.3 H Lymph % (Auto) 6.0 L Caldwell % (Auto) 4.7 Eos % (Auto) 4.8 Baso % (Auto) 0.2 Gran # 6.1 Lymph # (Auto) 0.4 L Caldwell # (Auto) 0.3 Eos # (Auto) 0.3 Baso # (Auto) 0 Sodium 140 Potassium 3.8 Chloride 103 Carbon Dioxide 26 Anion Gap 11.0 BUN 10 Creatinine 0.6 GFR Calculation 89 Glucose 70 Uric Acid 2.0 L Calcium 8.2 L Phosphorus 2.5 L Magnesium 1.6 Total Bilirubin 0.2 Direct Bilirubin < 0.2 GGT 13 AST 32 ALT 32 Alkaline Phosphatase 85 Lactate Dehydrogenase 272 H Total Protein 5.6 L Albumin 2.3 L Globulin 3.3 Albumin/Globulin Ratio 0.7 L Triglycerides 136 Preliminary micro results at discharge 01/28/18 10:21 Blood Culture - Preliminary Blood 01/28/18 10:23 Blood Culture - Preliminary Blood 01/22/18 17:39 Blood Culture - Preliminary Blood Gram positive cocci Medical - DS: A/P - Patient/Caregiver Discharge Instructions Activity: as per the cardiac rehab, as per physical therapy Diet: Renal/Consistent Carbs Additional Instructions: Follow up at wound healing center with Dr. Escobar, modeler. Follow-up PCP in 5 days. follow-up with infectious disease specialist Dru Garner in 2 weeks Follow wound care doctor Raoul as outpatient F/u orthopedics as outpatient for further evaluation and management of osteomyelitis I recommend SNF physician to check CBC BMP UA as a posthospital follow-up in 1 week. Antibiotics for 6 weeks per infectious disease recommendations-IV vancomycin and Zosyn Continue aggressive bowel regimen to prevent constipation Continue fall precautions Continue aggressive PT OT evaluation and treatment at [facility]. ST eval and treatment if indicated All meals on chair sitting upright at 90 degrees to prevent aspiration Return to ER if worsening fever chills shortness of breath, diarrhea, bleeding Review risk and side effect profile of medications including antibiotics. Side effect may include mild to severe reaction including rash, diarrhea, cdiff and even which can be prevented by close follow-up with PCP and monitoring for side effects Continue diet and activity as advised Discussed importance of medication adherence Please review medication list with patient prior to discharge Please schedule follow-up with PCP/Providers prior to discharge and provide printouts Portions of this chart may have been created with Snap[employer] voice recognition software. Occasional wrong-word or ?sound-like? substitutions may have occurred due to the inherent limitations of voice recognition software. Please read the chart carefully and recognize, using context, where the substitutions have occurred. CC- PCP Prescriptions: Piperacillin Sodium/Tazobactam [Zosyn] 3.375 gm IV Q6H #168 vial Vancomycin 1,000 mg IV Q12H 42 Days #84 vial - Follow up Plan Follow up with: Wayne Bahena MD [Primary Care Provider] - Disposition: [facility] SNF Prognosis: Fair Rehab Potential: Fair I certify that the patient requires SNF services: Yes Overall status at discharge: patient is progressing back to baseline Medical - DS: Qual - VTE Deep Vein Thrombosis/Pulmonary Embolism Present on Admission: No
[2018-01-30] MEDS: VANCOMYCIN 1,000 MG in 0.9 % SODIUM CHLORIDE 250 ML IV SCH (10:32)
[2018-02-06 08:10] LABS: Crystals,Body Fluid CA PYROPHOSPHATE (NONE SEEN)
== END 2018-01-30 12:47 | DRG 872 ==
LOC: ED 16:02 → ICU 19:20 → MEDSUR 01-26 15:00
PROVIDERS: ADMIT Specialist; ATTEND Internal Medicine

== ENCOUNTER 2020-12-23 14:45 | Inpatient (IN) ==
[2020-12-23] MEDS ORDERED: IOPAMIDOL 100 ML BOTTLE IV ONE (14:46)
[2020-12-23] MEDS ORDERED: 0.9 % SODIUM CHLORIDE 1,000 ML IV ONE (15:33)
[2020-12-23] MEDS ORDERED: ONDANSETRON 4 MG/2 ML VIAL IV ONE (15:33)
[2020-12-23 16:13] LABS: POC Creatinine 1.2 mg/dL (0.6-1.2)
--- NOTE | 2020-12-23 17:31 | Cat Scan Report ---
History: Right upper quadrant pain with nausea vomiting and diarrhea, prior hysterectomy for uterine cancer TECHNIQUE: The patient was imaged following intravenous and no oral contrast scanning during the portal venous phase and delayed excretory phase. Sagittal and coronal reformats were created. The radiation exposure was limited using dose reduction technology. FINDINGS: Patient has a large hiatus hernia with organoaxial volvulus. There is no associated inflammation or evidence of gastric obstruction. The liver is normal in size. There is mild dilatation of the intrahepatic ducts and the common hepatic duct. The liver is homogeneous. The gallbladder wall is abnormally thickened and inflamed. There is inflammation of the surrounding pericholecystic fat. The wall measures up to 1 cm. There are few small faintly calcified stones in the fundus. There is no pericholecystic abscess. No ascites or free peritoneal air are present. The pancreas is normal. The spleen and adrenals are normal. There are multiple simple cysts in both kidneys. The largest extends exophytically laterally from the upper pole on the right side and measures 3.5 cm. There is no kidney stone or hydronephrosis. Scattered plaques are present along the wall of normal caliber abdominal aorta. A couple noninflamed diverticula are seen in the descending colon. There is no evidence of acute diverticulitis or bowel obstruction. There is a small ventral hernia containing fat in the right mid abdomen. The uterus and ovaries have been removed. There is no evidence of pelvic mass or adenopathy. Bone windows reveal degenerative disc disease and arthritis throughout the lumbar spine. No lytic or blastic bone metastasis are present. IMPRESSION: Severe acute cholecystitis with associated obstruction of the intrahepatic ducts. Large organoaxial volvulus of the stomach Dr. Lozada was called with report Interpreted and Authenticated by: Krunal Galdamez 12/23/20
[2020-12-23] MEDS ORDERED: cefTRIAXone 1 GM VIAL IV ONE (18:07)
--- NOTE | 2020-12-23 18:07 | Emergency Department Note ---
Abdominal Pain HPI General Chief Complaint: Abdominal Pain Stated Complaint: RLQ pain, n/v/d Time Seen by Provider: 12/23/20 15:33 Source: patient and old records reviewed Mode of arrival: wheelchair Limitations: no limitations History of Present Illness HPI Narrative: Narrative: 80 yo female complains of moderate abdominal pain greatest in RLQ x 5 days. Pain has been worsening with nausea, vomiting and diarrhea. Pain is worse with eating, positive anorexia for the last few days with only PO fluid intake. No FC No urinary complains PSH hysterectomy MD Complaint: abdominal pain Onset (ago): day(s) Consistency: intermittent and colicky Location: RLQ Severity: moderate Quality: cramping Improves with: vomiting Worsens with: eating Associated symptoms: Reports nausea, vomiting and diarrhea Related Data Home Medications Medication Instructions Recorded Confirmed glipizide 5 mg PO BIDAC 08/02/16 12/23/20 metformin [Glumetza] 1,000 mg PO BID 08/02/16 12/23/20 pregabalin 150 mg PO QPM 08/02/16 12/23/20 omeprazole 20 mg PO DAILY 01/22/18 12/23/20 [id number]-[id number]-E1-G1-gzrh-met-choln 118 ml PO DAILY 04/17/19 12/23/20 acetaminophen 650 mg PO BID 04/17/19 12/23/20 nkffafdh-tnz-htiv-FA-lutein 1 each PO DAILY 04/17/19 12/23/20 simvastatin 40 mg PO HS 04/17/19 12/23/20 insulin lispro 3 unit SQ BIDAC 10/04/19 12/23/20 Previous Rx's Medication Instructions Recorded insulin detemir U-100 12 unit SQ HS #30 vial 01/30/18 tramadol 50 mg PO Q6HP PRN #20 tab 10/09/19 Allergies Allergy/AdvReac Type Severity Reaction Status Date / Time diphenhydramine AdvReac Intermediate Itching Verified 12/23/20 14:49 [From Benadryl] levofloxacin [From Levaquin] AdvReac Mild Confusion Verified 12/23/20 14:49 Sulfa (Sulfonamide AdvReac Mild ITCHING Verified 12/23/20 14:49 Antibiotics) [SULFA (SULFONAMIDE ANTIBIOTICS)] Review of Systems ROS ROS Narrative: Narrative: Constitutional: Denies fever, chills and sweats Eyes: Denies vision change ENT ED: Denies throat pain Cardiovascular: Denies chest pain Respiratory: Denies shortness of breath Gastrointestinal: Reports abdominal pain, nausea, vomiting and diarrhea; Denies constipation, melena, hematemesis and heart burn Musculoskeletal: Denies back pain Neurological: Denies headache Endocrine: Denies fatigue Hematological/Lymphatic: Denies lymphadenopathy PFSH Narrative Patient History Narrative: Narrative: Medical/Surgical/Family History All Active Problems (Updated 12/23/20 @ 18:07 by Ford Lozada MD) Acute cholecystitis (Acute) Abdominal pain (Acute) Sepsis (Acute) Osteoarthritis of lumbar spine (Acute) Hip osteoarthritis (Acute) Cellulitis (Acute) Diabetic Charcot's foot (Acute) Diabetic ulcer of foot with fat layer exposed (Acute) Diabetic ulcer of foot with necrosis of muscle (Acute) Diabetic infection of left foot (Acute) Osteomyelitis of ankle or foot (Acute) Medical History (Updated 12/23/20 @ 18:07 by Ford Lozada MD) Amputation of great toe, right, traumatic Breast CA Cellulitis Diabetes 1.5, 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 I discussed the situation with Xenia today. This will require full course IV antibiotics and may require ECF based on isurance coverage issues. Surgical History (Updated 02/13/18 @ 15:18 by RENZO Torres) History of hysterectomy for cancer History of lumpectomy of right breast Social History Smoking Status: Never smoker Exam Narrative Narrative: Narrative: General Limitations: no limitations General appearance: Present alert and in no apparent distress Head Head: Present atraumatic and normocephalic Eye Eye: Present PERRL and EOMI ENT ENT: Present mucous membranes moist Neck Neck: Present full ROM; Absent tenderness Chest Chest: Absent tenderness Respiratory Respiratory: Present normal lung sounds bilaterally; Absent respiratory distress Cardiovascular Cardiovascular: Present regular rate and normal rhythm Adbominal Abdominal: Present tenderness, normal bowel sounds, Landers's sign and tenderness at McBurney's Point; Absent soft and distention Rectal Rectal: Present deferred Extremities Extremities: Present full ROM; Absent tenderness, pedal edema and pretibial edema Back Back: Present normal inspection Neurological Neurological: Present alert and oriented X3 Psychiatric Psychiatric: Present normal affect and normal mood Skin Skin: Present warm (WNL) Course Reevaluation(s) Reevaluation #1: Patient denies current pain or nausea. Instructed on NPO status. Vital Signs Vital signs: Vital Signs Temperature 98.3 F 12/23/20 14:46 Pulse Rate 97 H 12/23/20 14:46 Respiratory Rate 18 12/23/20 14:46 Blood Pressure 134/62 12/23/20 14:46 Temperature 98.3 F 12/23/20 14:46 Pulse Rate 93 H 12/23/20 15:31 Respiratory Rate 18 12/23/20 14:46 Blood Pressure 139/57 12/23/20 16:31 Pulse Oximetry (%) 97 12/23/20 15:31 MDM MDM Narrative Medical decision making narrative: Narrative: Cholecystitis, Appy, SBO, Ischemic bowel, adenitis, Cancer, perforation. CT is positive for Cholecystitis Discussed with Dr. Brown Labs Pending Lab Data Result diagrams: 12/23/20 15:44 12/23/20 15:44 Labs: Lab Results 12/23/20 Range/Units 16:00 POC Creatinine 1.2 (0.6-1.2) mg/dL Discharge Plan Patient/Caregiver Discharge Instructions Pt seen by CHLORINE CELL TENDER/PA only: No Clinical Impression: Acute cholecystitis Patient Disposition: Xfer As Inpt ([facility]) Follow up with: Wayne Bahena MD [Primary Care Provider] - Prescriptions: No Action glipizide 5 MG tablet 5 mg PO BIDAC RF: 0 pregabalin 75 MG capsule 150 mg PO QPM RF: 0 metformin [Glumetza] 1,000 MG tablet,ER felipe.retention 24 hr 1,000 mg PO BID RF: 0 omeprazole 20 MG capsule 20 mg PO DAILY RF: 0 insulin detemir U-100 100 UNIT/ML solution 12 unit SQ HS Qty: 30 RF: 0 simvastatin 40 MG tablet 40 mg PO HS RF: 0 acetaminophen 325 MG tablet 650 mg PO BID RF: 0 ywpowtea-bqh-mnhu-FA-lutein 1 EACH tablet 1 each PO DAILY RF: 0 M8-K2-C0-X7-W9-fhzh-met-choln 118 ML liquid 118 ml PO DAILY RF: 0 insulin lispro 1 UNIT/0.01 ML unit 3 unit SQ BIDAC RF: 0 tramadol 50 MG tablet 50 mg PO Q6HP PRN (Reason: Pain) Qty: 20 RF: 0
[2020-12-23 18:15] LABS: Basophils # (Auto) 0.04 K/mcL (0.00-0.20); Basophils % (Auto) 0.3 % (0.0-2.0); Eosinophils # (Auto) 0.09 K/mcL (0.00-0.70); Eosinophils % (Auto) 0.6 % (0.0-7.0); Hemoglobin 9.6 g/dL (12.0-15.0); Lymphocytes # (Auto) 1.05 K/mcL (1.50-4.80); Lymphocytes % (Auto) 7.2 % (15.0-49.0); Mean Cell Volume 74.2 fL (80.0-100.0); Mean Platelet Volume 10.6 fL (7.4-10.4); Monocytes # (Auto) 1.19 K/mcL (0.10-0.90); Monocytes % (Auto) 8.2 % (1.0-12.0); Neutrophils % (Auto) 83.7 % (38.0-78.0); Platelet Count 342 K/mcL (140-440); RBC 4.18 M/mcL (4.00-5.20); WBC 14.5 K/mcL (4.5-11.0)
[2020-12-23 18:22] LABS: ALT/SGPT 22 U/L (<40); AST/SGOT 30 U/L (<32); Albumin/Globulin Ratio 0.8 (1.0-2.3); Alkaline Phosphatase 149 U/L (39-117); Bilirubin,Total 0.3 mg/dL (0.1-1.0); Blood Urea Nitrogen 50 mg/dL (8-23); Calcium 9.2 mg/dL (8.6-10.4); Carbon Dioxide 24 mmol/L (22-30); Chloride 96 mmol/L (96-108); Glomerular Filtration Rate 43; Glucose 412 mg/dL (70-105)
[2020-12-23] MEDS ORDERED: ONDANSETRON 4 MG/2 ML VIAL IV PRN (18:43)
[2020-12-23] MEDS ORDERED: HYDROmorphone 0.5 MG/0.5 ML SYRINGE IV PRN (18:54)
[2020-12-23] MEDS ORDERED: PROMETHAZINE 25 MG/ML VIAL IV PRN (18:54)
[2020-12-23] MEDS ORDERED: DEXTROSE 31 GM ORAL.SUSP PO PRN (18:59)
[2020-12-23] MEDS ORDERED: DEXTROSE 50% 50 ML VIAL IV PRN (18:59)
--- NOTE | 2020-12-23 19:32 | Ultrasound Report ---
History: Acute cholecystitis and possible choledocholithiasis FINDINGS: The gallbladder is inflamed. The wall is thickened and edematous. There is a large amount sludge within the lumen. The wall measures 6 mm. There is a rim of pericholecystic fluid. Between the liver and gallbladder there is a small pocket of fluid measuring 1.1 x 2.5 cm. In general location of the gallbladder neck or cystic duct, there are are two ill-defined echogenic structures larger measures 1.4 cm. No stone was seen in the region of the cystic duct on the preceding abdomen CT. However, CT scan revealed the presence of a couple small stones in the distal fundus of the gallbladder which are not seen on the ultrasound. The common hepatic duct measures 8.4 mm. The common bile duct was better seen on the preceding CT scan and measures approximately 3 mm. No clearly defined stone is identified within the common hepatic duct. Cysts are present in the right kidney. These were noted on the preceding CT scan. The liver is normal in size. There may be a subcapsular cyst above the gallbladder fossa. No ascites is present. IMPRESSION: Severe acute cholecystitis.. Mildly dilated intrahepatic ducts and common hepatic duct with normal caliber distal common bile duct. The obstruction could either be due to the inflamed gallbladder or a nonvisualized stone in the duct. Possible stones in the neck of the gallbladder or cystic duct Interpreted and Authenticated by: Krunal Galdamez 12/23/20
--- NOTE | 2020-12-23 19:39 | General Surg History&Physical ---
HPI History of Present Illness Patient information: Note initiated : 12/23/20 at 7:28 pm Service Date, if different from initiated Date: [] Patient: Xenia Morgan 80 y/o F admitted on for RLQ pain, n/v/d. Chief Complaint: [] History of present illness: Ms. Morgan is a 80 year old F admitted with acute cholecystitis with cholelithiasis. The patient has a 5-day history of upper abdominal pain radiating through to her back with nausea vomiting and diarrhea. Her pain became progressively more severe and she is seen in the emergency room. CT scan shows edematous gallbladder with multiple stones and dilation of the common hepatic ducts however on ultrasound her common bile duct is normal diameter. The cystic duct is not well seen. Her LFTs including bilirubin and alkaline phosphatase are normal. Patient is counseled for cholecystectomy with cholangiogram and this will be performed tomorrow. Constitutional Constitutional: Present anorexia, fatigue, fever(s), lethargy, malaise and weakness EENT Eyes: Absent change in vision and irritation Ears: Present decreased hearing Nose, mouth and throat: Present dizziness Cardiovascular Cardiovascular: Present leg edema, leg ulcers and pedal edema Respiratory Respiratory: Absent cough and wheezing Gastrointestinal Gastrointestinal: Present abdominal pain, belching, bloating, change in bowel habits, cramping, diarrhea, dyspepsia, heartburn, nausea and vomiting Genitourinary Genitourinary: Absent dysuria, hematuria and nocturia Musculoskeletal Musculoskeletal: Present abnormal gait, arthralgias, atrophy, deformity, myalgias, numbness and radiating pain into limb Integumentary Integumentary: Present new lesions, rash, skin ulcer, sores and swelling Neurological Neurological: Present dizziness, numbness, sensory deficit and tingling Psychiatric Psychiatric: Absent anxiety, behavioral changes, confusion and memory loss Endocrine Endocrine: Present fatigue and palpitations Hematologic/Lymphatic Hematologic/Lymphatic: Absent easy bleeding, easy bruising and lymphadenopathy Allergic/Immunologic Allergic/Immunologic: Absent tongue swelling, throat swelling, itchy eyes, uticaria and wheezing PFSH PFSH All Active Problems (Updated 12/25/20 @ 11:30 by King Brown MD) Acute gangrenous cholecystitis (Acute) Diabetes mellitus (Acute) Cholecystitis, acute with cholelithiasis (Acute) Choledocholithiasis with acute cholecystitis (Acute) Acute cholecystitis (Acute) Abdominal pain (Acute) Sepsis (Acute) Osteoarthritis of lumbar spine (Acute) Hip osteoarthritis (Acute) Cellulitis (Acute) Diabetic Charcot's foot (Acute) Diabetic ulcer of foot with fat layer exposed (Acute) Diabetic ulcer of foot with necrosis of muscle (Acute) Diabetic infection of left foot (Acute) Osteomyelitis of ankle or foot (Acute) Medical History (Updated 12/25/20 @ 11:30 by King Brown MD) Amputation of great toe, right, traumatic Breast CA Cellulitis Diabetes 1.5, 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 I discussed the situation with Xenia today. This will require full course IV antibiotics and may require ECF based on isurance coverage issues. Surgical History (Updated 02/13/18 @ 15:18 by RENZO Torres) History of hysterectomy for cancer History of lumpectomy of right breast Social History smoking status: Never smoker MEDS/ALLERGIES Home Medications and Allergies Home Medications Medication Instructions Recorded Confirmed Type glipizide 5 mg PO BIDAC 08/02/16 12/23/20 History metformin [Glumetza] 1,000 mg PO BID 08/02/16 12/23/20 History pregabalin 150 mg PO QPM 08/02/16 12/23/20 History omeprazole 20 mg PO DAILY 01/22/18 12/23/20 History insulin detemir U-100 12 unit SQ HS #30 vial 01/30/18 12/23/20 Rx [id number]-B9-W9-ncgm-met-choln 118 ml PO DAILY 04/17/19 12/23/20 History acetaminophen 650 mg PO BID 04/17/19 12/23/20 History ixiyeakh-pwe-skpd-FA-lutein 1 each PO DAILY 04/17/19 12/23/20 History simvastatin 40 mg PO HS 04/17/19 12/23/20 History insulin lispro 3 unit SQ BIDAC 10/04/19 12/23/20 History tramadol 50 mg PO Q6HP PRN #20 tab 10/09/19 12/23/20 Rx Allergies Allergy/AdvReac Type Severity Reaction Status Date / Time diphenhydramine AdvReac Mild Itching Verified 12/24/20 07:06 [From Benadryl] levofloxacin [From Levaquin] AdvReac Mild Confusion Verified 12/23/20 14:49 Sulfa (Sulfonamide AdvReac Mild ITCHING Verified 12/23/20 14:49 Antibiotics) [SULFA (SULFONAMIDE ANTIBIOTICS)] Physical Examination Vital Signs Vital signs: Temp Pulse Resp BP Pulse Ox 98.3 F 89 18 122/64 95 12/23/20 14:46 12/23/20 19:01 12/23/20 14:46 12/23/20 19:01 12/23/20 19:01 General physical appearance General physical exam: well developed, well nourished, no distress, moderate distress, moderate pain and chronically ill Eyes Eye exam: PERRL and normal ocular movement; negative icteric ENT ENT exam: normal mucosa and no hearing loss Head Head exam IM: Present atraumatic, normal inspection and normocephalic Neck Neck exam: no masses, no bruits, trachea midline, no lymphadenopathy and no venous distension Cardiovascular Cardiovascular exam IM: Present normal rate and rhythm, RRR, +S1 and +S2; Absent JVD and tachycardia Respiratory Respiratory exam: normal expansion, normal respiratory effort and clear to auscultation Abdomen Abdomen: Present tender (Right upper quadrant and epigastric region with guarding) Integumentary Integumentary: Present no rash and no growths Musculoskeletal Musculoskeletal: Present other (Altered gait due to foot ulcers and pain) Psychiatric Psychiatric: Present oriented to time, oriented to person, oriented to place, speech is normal and memory intact Results Labs Result diagrams: 12/25/20 05:21 12/25/20 05:22 Labs: Abnormal lab results 12/23/20 12/23/20 Range/Units 15:44 15:44 WBC 14.5 H (4.5-11.0) K/mcL Hgb 9.6 L (12.0-15.0) g/dL Hct 31.0 L (36.0-48.0) % MCV 74.2 L (80.0-100.0) fL MCH 23.0 L (26.0-34.0) pg RDW 16.0 H (11.5-14.5) % MPV 10.6 H (7.4-10.4) fL Neut % (Auto) 83.7 H (38.0-78.0) % Lymph % (Auto) 7.2 L (15.0-49.0) % Lymph # (Auto) 1.05 L (1.50-4.80) K/mcL Murray # (Auto) 1.19 H (0.10-0.90) K/mcL Absolute Neutrophils 12.14 H (1.80-8.00) K/mcL BUN 50 H (8-23) mg/dL Creatinine 1.2 H (0.6-1.1) mg/dL Glucose 412 H (70-105) mg/dL Alkaline Phosphatase 149 H (39-117) U/L Albumin 3.0 L (3.2-5.2) gm/dL Globulin 4.0 H (2.2-3.7) gm/dL Albumin/Globulin Ratio 0.8 L (1.0-2.3) Diabetes panel 12/23/20 Range/Units 15:44 Sodium 133 (133-145) mmol/L Potassium 3.9 (3.3-5.1) mmol/L Chloride 96 (96-108) mmol/L Carbon Dioxide 24 (22-30) mmol/L BUN 50 H (8-23) mg/dL Creatinine 1.2 H (0.6-1.1) mg/dL Glucose 412 H (70-105) mg/dL Calcium 9.2 (8.6-10.4) mg/dL AST 30 (<32) U/L ALT 22 (<40) U/L Alkaline Phosphatase 149 H (39-117) U/L Total Protein 7.0 (5.9-8.4) gm/dL Albumin 3.0 L (3.2-5.2) gm/dL Calcium panel 12/23/20 Range/Units 15:44 Calcium 9.2 (8.6-10.4) mg/dL Albumin 3.0 L (3.2-5.2) gm/dL Pituitary panel 12/23/20 Range/Units 15:44 Sodium 133 (133-145) mmol/L Potassium 3.9 (3.3-5.1) mmol/L Chloride 96 (96-108) mmol/L Carbon Dioxide 24 (22-30) mmol/L BUN 50 H (8-23) mg/dL Creatinine 1.2 H (0.6-1.1) mg/dL Glucose 412 H (70-105) mg/dL Calcium 9.2 (8.6-10.4) mg/dL Adrenal panel 12/23/20 Range/Units 15:44 Sodium 133 (133-145) mmol/L Potassium 3.9 (3.3-5.1) mmol/L Chloride 96 (96-108) mmol/L Carbon Dioxide 24 (22-30) mmol/L BUN 50 H (8-23) mg/dL Creatinine 1.2 H (0.6-1.1) mg/dL Glucose 412 H (70-105) mg/dL Calcium 9.2 (8.6-10.4) mg/dL Total Bilirubin 0.3 (0.1-1.0) mg/dL AST 30 (<32) U/L ALT 22 (<40) U/L Alkaline Phosphatase 149 H (39-117) U/L Total Protein 7.0 (5.9-8.4) gm/dL Albumin 3.0 L (3.2-5.2) gm/dL All other labs normal. A/P Assessment and plan (1) Cholecystitis, acute with cholelithiasis: Status: Acute (2) Diabetic Charcot's foot: Status: Acute (3) Diabetes mellitus: Status: Acute Narrative A/P Narrative: Zosyn 3.375 g IV every 6 hours Consent for laparoscopic cholecystectomy with cholangiogram Accu-Cheks every 6 hours with Humalog coverage Time Spent With Patient Time: Total time spent is greater than 50% in coordination of care (as documented) at patient's floor/unit and/or counseling patient:
[2020-12-23 19:43] LABS: INR 1.1 (0.9-1.1); Prothrombin Time 15.1 sec (11.9-14.5)
--- NOTE | 2020-12-23 19:51 | XRay Report ---
HISTORY: Preop for cholecystectomy FINDINGS: There is a large retrocardiac hiatus hernia. Preceding CT scan revealed the presence of an organoaxial volvulus. The lungs are clear, without evidence of pneumonia or pulmonary vascular congestion. No pleural effusion is present. The heart size is normal. There is advanced arthritis in both shoulders. Comparison with the prior x-ray done on 01/28/18 shows little change. IMPRESSION: Large hiatus hernia and no acute abnormality Interpreted and Authenticated by: Krunal Galdamez 12/23/20
[2020-12-23] MEDS: PIPERACILLIN SODIUM/TAZOBACTAM 3.375 GM in DEXTROSE 5% IN WATER 50 ML IV SCH (19:53)
[2020-12-23] MEDS: 0.9 % SODIUM CHLORIDE 1,000 ML IV SCH ×2 (19:53→21:42)
[2020-12-23 20:03] LABS: Hemoglobin A1C 9.2 % Hgb (4.0-6.0)
[2020-12-23] MEDS: 0.9 % SODIUM CHLORIDE 10 ML SYRINGE IV SCH (21:43)
[2020-12-23] MEDS: INSULIN LISPRO 1 UNIT/0.01 ML UNIT SQ SCH (22:57)
[2020-12-24] MEDS: PIPERACILLIN SODIUM/TAZOBACTAM 3.375 GM in DEXTROSE 5% IN WATER 50 ML IV SCH ×7 (01:42→19:30)
[2020-12-24] MEDS: 0.9 % SODIUM CHLORIDE 1,000 ML IV SCH ×4 (04:04→20:30)
[2020-12-24] MEDS ORDERED: IPRATROPIUM/ALBUTEROL 3 ML AMPUL.NEB NEB PRN ×3 (06:00→13:18)
[2020-12-24] MEDS ORDERED: SCOPOLAMINE 1 PATCH PATCH TOPICAL PRN ×2 (06:00→13:18)
[2020-12-24] MEDS: 0.9 % SODIUM CHLORIDE 10 ML SYRINGE IV SCH ×3 (06:56→22:35)
[2020-12-24] MEDS: INSULIN LISPRO 1 UNIT/0.01 ML UNIT SQ SCH ×5 (06:56→21:16)
[2020-12-24 07:02] LABS: Basophils # (Auto) 0.03 K/mcL (0.00-0.20); Basophils % (Auto) 0.3 % (0.0-2.0); Eosinophils # (Auto) 0.06 K/mcL (0.00-0.70); Eosinophils % (Auto) 0.5 % (0.0-7.0); Hematocrit 27.1 % (36.0-48.0); Hemoglobin 8.1 g/dL (12.0-15.0); Lymphocytes # (Auto) 0.92 K/mcL (1.50-4.80); Lymphocytes % (Auto) 8.1 % (15.0-49.0); Mean Cell Volume 74.7 fL (80.0-100.0); Mean Corpuscular HGB Conc 29.9 g/dL (31.0-36.0); Mean Platelet Volume 10.1 fL (7.4-10.4); Monocytes # (Auto) 1.06 K/mcL (0.10-0.90); Monocytes % (Auto) 9.4 % (1.0-12.0); Neutrophils % (Auto) 81.7 % (38.0-78.0); Platelet Count 308 K/mcL (140-440); RBC 3.63 M/mcL (4.00-5.20); Red Cell Distribution Width 16.1 % (11.5-14.5); WBC 11.3 K/mcL (4.5-11.0)
[2020-12-24] MEDS ORDERED: PIPERACILLIN SODIUM/TAZOBACTAM 3.375 GM in DEXTROSE 5% IN WATER 50 ML IV SCH (07:15)
[2020-12-24 07:46] LABS: ALT/SGPT 17 U/L (<40); AST/SGOT 24 U/L (<32); Albumin 2.4 gm/dL (3.2-5.2); Albumin/Globulin Ratio 0.6 (1.0-2.3); Alkaline Phosphatase 116 U/L (39-117); Bilirubin,Total 0.2 mg/dL (0.1-1.0); Blood Urea Nitrogen 30 mg/dL (8-23); Calcium 8.7 mg/dL (8.6-10.4); Carbon Dioxide 26 mmol/L (22-30); Chloride 104 mmol/L (96-108); Globulin 3.7 gm/dL (2.2-3.7); Glomerular Filtration Rate 54; Glucose 101 mg/dL (70-105)
[2020-12-24] MEDS ORDERED: ONDANSETRON 4 MG/2 ML VIAL ONE (08:47)
[2020-12-24] MEDS ORDERED: HYDROmorphone 1 MG/ML SYRINGE ONE (08:47)
[2020-12-24] MEDS ORDERED: MAGNESIUM SULFATE 2 GM/50 ML BAG IV ONE (08:47)
[2020-12-24] MEDS ORDERED: LIDOCAINE HCL/PF 100 MG/5 ML SYRINGE IV ONE (08:47)
[2020-12-24] MEDS ORDERED: fentaNYL 100 MCG/2 ML VIAL IV ONE (08:47)
[2020-12-24] MEDS ORDERED: SUGAMMADEX SODIUM 200 MG/2 ML VIAL IV ONE (08:47)
[2020-12-24] MEDS ORDERED: KETAMINE 100 MG/ML ML ONE (08:47)
[2020-12-24] MEDS ORDERED: PROPOFOL 200 MG/20 ML VIAL IV ONE (08:47)
[2020-12-24] MEDS ORDERED: ROCURONIUM 10 MG/ML ML IV ONE (08:47)
[2020-12-24] MEDS ORDERED: DEXAMETHASONE 10 MG/ML VIAL ONE (08:47)
[2020-12-24] MEDS ORDERED: IOVERSOL 20 ML VIAL IJ ONE (10:22)
[2020-12-24] MEDS ORDERED: ACETAMINOPHEN 1,000 MG/100 ML BAG IV ONE (10:46)
[2020-12-24] MEDS ORDERED: NALOXONE HCL 0.4 MG/ML VIAL IV PRN (10:46)
[2020-12-24] MEDS ORDERED: MEPERIDINE 25 MG/ML SYRINGE IV PRN (10:46)
[2020-12-24] MEDS ORDERED: ONDANSETRON 4 MG/2 ML VIAL IV PRN ×2 (10:46→13:18)
[2020-12-24] MEDS ORDERED: diphenhydrAMINE 50 MG/ML VIAL IV PRN (10:46)
[2020-12-24] MEDS ORDERED: LACTATED RINGERS 250 ML IV PRN (10:46)
[2020-12-24] MEDS ORDERED: fentaNYL 100 MCG/2 ML VIAL IV PRN (10:46)
[2020-12-24] MEDS ORDERED: BENZOCAINE/MENTHOL 1 LOZENGE PO PRN (10:46)
[2020-12-24] MEDS ORDERED: PROMETHAZINE 25 MG/ML VIAL IV PRN ×2 (10:46→13:18)
[2020-12-24] MEDS ORDERED: LACTATED RINGERS 1,000 ML IV SCH (11:00)
--- NOTE | 2020-12-24 11:17 | Brief Operative Note ---
Brief Operative Note Date of procedure: 12/24/20 Pre-op diagnosis: ACUTE CHOLECYSTITIS WITH CHOLELITHIASIS Post-op diagnosis: other (ACUTE GANGRENOUS CHOLECYSTITIS WITH CHOLELITHIASIS) Procedure: OPEN CHOLECYSTECTOMY Grafts/Implants: No Anesthesia: GETA Findings: ACUTE SEVERE INFLAMMATION OF GALLBLADDER WITH NECROSIS OF WALL AND PERFORATION;PERICHOLECYSTIC ABSCESS WITH CONTAINMENT BY TRANSVERSE COLON ,RIGHT COLONAND OMENTUM Complications: none Surgeon: King Brown Estimated blood loss (cc): 50 Specimens Removed/Pathology: other (GALLBLADDER) Condition: stable Disposition: PACU
[2020-12-24] MEDS ORDERED: IOPAMIDOL 100 ML BOTTLE IV ONE (13:18)
[2020-12-24] MEDS ORDERED: DEXTROSE 50% 50 ML VIAL IV PRN (13:18)
[2020-12-24] MEDS ORDERED: DEXTROSE 31 GM ORAL.SUSP PO PRN (13:18)
[2020-12-24] MEDS ORDERED: 0.9 % SODIUM CHLORIDE 250 ML IV SCH (16:00)
[2020-12-24 16:16] LABS: Basophils # (Auto) 0.03 K/mcL (0.00-0.20); Basophils % (Auto) 0.3 % (0.0-2.0); Eosinophils # (Auto) 0 K/mcL (0.00-0.70); Eosinophils % (Auto) 0 % (0.0-7.0); Hematocrit 30.8 % (36.0-48.0); Hemoglobin 9.2 g/dL (12.0-15.0); Lymphocytes # (Auto) 0.69 K/mcL (1.50-4.80); Lymphocytes % (Auto) 6.3 % (15.0-49.0); Mean Cell Volume 75.9 fL (80.0-100.0); Mean Corpuscular HGB Conc 29.9 g/dL (31.0-36.0); Mean Platelet Volume 10.4 fL (7.4-10.4); Monocytes # (Auto) 0.51 K/mcL (0.10-0.90); Monocytes % (Auto) 4.6 % (1.0-12.0); Neutrophils % (Auto) 88.8 % (38.0-78.0); Platelet Count 347 K/mcL (140-440); RBC 4.06 M/mcL (4.00-5.20); Red Cell Distribution Width 16.3 % (11.5-14.5)
[2020-12-24] MEDS: HYDROmorphone 0.5 MG/0.5 ML SYRINGE IV PRN ×2 (16:42→22:34)
[2020-12-24] MEDS: metFORMIN 500 MG TABLET PO SCH (17:53)
[2020-12-24] MEDS: glipiZIDE 5 MG TABLET PO SCH (17:53)
[2020-12-24] MEDS ORDERED: INSULIN GLARGINE, HUMAN 1 UNIT/0.01 ML SQ SCH (21:00)
[2020-12-24] MEDS: PREGABALIN 150 MG CAPSULE PO SCH (21:01)
[2020-12-25] MEDS: PIPERACILLIN SODIUM/TAZOBACTAM 3.375 GM in DEXTROSE 5% IN WATER 50 ML IV SCH ×5 (00:57→23:51)
[2020-12-25] MEDS: INSULIN LISPRO 1 UNIT/0.01 ML UNIT SQ SCH ×7 (01:04→20:23)
[2020-12-25] MEDS: HYDROmorphone 0.5 MG/0.5 ML SYRINGE IV PRN (03:40)
[2020-12-25] MEDS: 0.9 % SODIUM CHLORIDE 1,000 ML IV SCH ×3 (03:46→18:57)
[2020-12-25] MEDS: 0.9 % SODIUM CHLORIDE 10 ML SYRINGE IV SCH ×3 (06:04→20:18)
[2020-12-25 06:35] LABS: Basophils # (Auto) 0.02 K/mcL (0.00-0.20); Basophils % (Auto) 0.1 % (0.0-2.0); Eosinophils # (Auto) 0 K/mcL (0.00-0.70); Eosinophils % (Auto) 0 % (0.0-7.0); Hematocrit 32.7 % (36.0-48.0); Hemoglobin 10.5 g/dL (12.0-15.0); Lymphocytes # (Auto) 0.89 K/mcL (1.50-4.80); Lymphocytes % (Auto) 6.5 % (15.0-49.0); Mean Cell Volume 77.3 fL (80.0-100.0); Mean Corpuscular HGB Conc 32.1 g/dL (31.0-36.0); Monocytes # (Auto) 0.67 K/mcL (0.10-0.90); Monocytes % (Auto) 4.9 % (1.0-12.0); Neutrophils % (Auto) 88.5 % (38.0-78.0); Platelet Count 340 K/mcL (140-440); RBC 4.23 M/mcL (4.00-5.20); Red Cell Distribution Width 16.9 % (11.5-14.5); WBC 13.6 K/mcL (4.5-11.0)
[2020-12-25 07:10] LABS: ALT/SGPT 18 U/L (<40); AST/SGOT 24 U/L (<32); Albumin 2.2 gm/dL (3.2-5.2); Albumin/Globulin Ratio 0.6 (1.0-2.3); Alkaline Phosphatase 112 U/L (39-117); Bilirubin,Direct < 0.2 mg/dL (<0.3); Bilirubin,Total 0.5 mg/dL (0.1-1.0); Blood Urea Nitrogen 20 mg/dL (8-23); Calcium 8.3 mg/dL (8.6-10.4); Carbon Dioxide 25 mmol/L (22-30); Chloride 106 mmol/L (96-108); Globulin 3.6 gm/dL (2.2-3.7); Glomerular Filtration Rate 83; Glucose 171 mg/dL (70-105); Lactate Dehydrogenase 186 U/L (135-225); Phosphorous 2.8 mg/dL (2.5-4.5); Triglycerides 60 mg/dL (<150); Uric Acid 3.2 mg/dL (2.5-8.0)
[2020-12-25] MEDS: glipiZIDE 5 MG TABLET PO SCH ×2 (07:48→16:52)
[2020-12-25] MEDS: metFORMIN 500 MG TABLET PO SCH ×2 (07:48→16:52)
--- NOTE | 2020-12-25 11:31 | General Surgery Progress Note ---
SUBJECTIVE Subjective Patient information: Note initiated : 12/25/20 at 11:24 am Service Date, if different from initiated Date: [] Patient: Xenia Morgan 80 y/o F admitted on 12/23/20 for RLQ pain, n/v/d. Chief Complaint: [] Principal diagnosis: Gangrenous cholecystitis with perforation Interval history: Patient is status post open cholecystectomy because of gangrenous cholecystitis with perforation and pericholecystic abscess. She states that she feels much better. She denies nausea. She is tolerating liquid diet without difficulty. LFTs are normal. White blood count is 13.6. Constitutional Vitals: Vital Signs Temp Pulse Resp BP Pulse Ox 96.7 F L 73 20 118/61 92 12/25/20 08:00 12/25/20 08:00 12/25/20 08:00 12/25/20 08:00 12/25/20 08:00 Period Temp Pulse Resp BP Sys/Guzman Pulse Ox Last 24 Hr 96.7 F-98.7 F 73-85 16-20 118-144/53-67 92-98 Intake and Output 12/24/20 12/25/20 12/25/20 21:59 05:59 13:59 Intake Total 1520 1517 1050 Output Total 1215 460 300 Balance 305 1057 750 Weight 171 lb 9.6 oz Intake & Output: Intake & Output 12/24/20 12/25/20 12/25/20 21:59 05:59 13:59 Intake Total 1520 1517 1050 Output Total 1215 460 300 Balance 305 1057 750 Weight 171 lb 9.6 oz Intake: IV 467 974 9130 Sodium Chloride 0.9% 1,000 ml @ 101 409 2075 150 mls/hr IV .Q6H40M SEJAL Rx#: [id number] Zosyn 3.375 gm In Dextrose 5% 100 50 50 in Water 50 ml @ 100 mls/hr IV Q6H SEJAL Rx#:[id number] Oral 860 400 Blood Product 644 Output: Drainage 65 10 Right Medial CECILE Drain 65 10 Urine Catheter Amount 900 Void Amount 250 450 300 Other: Meal Dinner Percent of Meal Consumed 75% Feeding Ability Assist with Tray Set Up Urine Appearance Straight Clear Urine Color Straight Pale Urine Odor Straight Normal Head Head exam: Present atraumatic, normal inspection and normocephalic Eye Eye exam: Present EOMI and normal appearance; Absent scleral icterus Pupils: Present PERRL ENT ENT exam: Present mucous membranes moist and normal exam Neck Neck exam: Present full ROM and normal inspection; Absent tenderness and thyromegaly Respiratory Respiratory exam: Present normal respiratory exam and CTAB; Absent rales, rhonchi and wheezes Cardiovascular Cardiovascular exam: Present normal rate and rhythm, RRR, +S1 and +S2; Absent gallop and JVD GI/Abdominal GI/Abdominal exam: Present soft, diminished bowel sounds, distended (Mild dif fuse abdominal distention with good active bowel sounds) and tenderness (Moderate incisional tenderness) Extremities Exam Extremities exam: Present full ROM, normal capillary refill and normal inspection; Absent pedal edema Back Exam Back exam: Present full ROM; Absent tenderness Neurological Exam Neurological exam: Present alert, normal gait, oriented X3 and reflexes normal Psychiatric Psychiatric exam: Present anxious, normal affect and normal mood; Absent depressed Skin Skin exam: Present normal color; Absent cyanosis A/P Assessment and plan (1) Acute gangrenous cholecystitis: Status: Acute (2) Diabetes mellitus: Status: Acute Narrative A/P Narrative: Continue IV therapy Switch to oral pain medication Encouraged to ambulate Time Spent With Patient Time: Total time spent is greater than 50% in coordination of care (as documented) at patient's floor/unit and/or counseling patient:
--- NOTE | 2020-12-25 13:20 | Surgical Pathology Report ---
Histology Microscopic Diagnosis Specimen A- GALLBLADDER, CHOLECYSTECTOMY: --- ACUTE NECROTIZING AND CHRONIC CHOLECYSTITIS WITH CHOLELITHIASIS. Clinical History Right lower quadrant pain; nausea/vomiting/diarrhea. Procedural Impression Acute cholecystitis. Gross Description Received in formalin labeled gallbladder, is a disrupted purple-jung gallbladder. It is 10.4 x 3.9 x 2.3 cm. The serosal surface is purple-hwang with jung thinned areas of possible exudate. The hepatic bed is jung-hwang and is noticeably thinned walled compared to the remainder of the specimen. The duct is not grossly identified. The mucosal surface is purple-hwang and covered with splotchy green-hwang areas. The wall is up to 0.7 cm thick. There is a 0.3 cm stone identified. Sustainable [employer]st sections submitted in one cassette. Microscopic Diagnosis Specimen B- APPENDIX, APPENDECTOMY: --- APPENDIX WITH NO DIAGNOSTIC ALTERATION. Gross Description Received in formalin labeled appendix, is a jung-hwang appendix. It is 6.9 cm in length by up to 0.6 cm in diameter. The margin is open. It is inked black. Cut surfaces are hwang. Grossly there are no areas of perforation identified. Sustainable Systems Analyst sections are submitted in one cassette. (SCB:adj) Electronically Signed Martha Hoover MD, FCAP Electronically Signed 12/25/2020 13:19
[2020-12-25] MEDS ORDERED: oxyCODONE HCL 5 MG TABLET PO PRN (14:57)
[2020-12-25] MEDS: ACETAMINOPHEN 325 MG TABLET PO PRN ×2 (15:53→20:17)
[2020-12-25] MEDS: PREGABALIN 150 MG CAPSULE PO SCH (20:18)
[2020-12-26] MEDS: 0.9 % SODIUM CHLORIDE 1,000 ML IV SCH ×4 (01:00→09:51)
[2020-12-26] MEDS: 0.9 % SODIUM CHLORIDE 10 ML SYRINGE IV SCH (04:42)
[2020-12-26] MEDS: PIPERACILLIN SODIUM/TAZOBACTAM 3.375 GM in DEXTROSE 5% IN WATER 50 ML IV SCH ×2 (05:43→11:48)
[2020-12-26 06:37] LABS: Basophils # (Auto) 0.03 K/mcL (0.00-0.20); Basophils % (Auto) 0.3 % (0.0-2.0); Eosinophils # (Auto) 0.12 K/mcL (0.00-0.70); Hematocrit 35.9 % (36.0-48.0); Hemoglobin 10.9 g/dL (12.0-15.0); Lymphocytes # (Auto) 0.92 K/mcL (1.50-4.80); Lymphocytes % (Auto) 7.8 % (15.0-49.0); Mean Cell Volume 79.2 fL (80.0-100.0); Mean Corpuscular HGB Conc 30.4 g/dL (31.0-36.0); Mean Platelet Volume 9.8 fL (7.4-10.4); Monocytes # (Auto) 0.45 K/mcL (0.10-0.90); Monocytes % (Auto) 3.8 % (1.0-12.0); Neutrophils % (Auto) 87.1 % (38.0-78.0); Platelet Count 404 K/mcL (140-440); RBC 4.53 M/mcL (4.00-5.20); Red Cell Distribution Width 17.4 % (11.5-14.5); WBC 11.8 K/mcL (4.5-11.0)
[2020-12-26 07:01] LABS: ALT/SGPT 22 U/L (<40); AST/SGOT 30 U/L (<32); Albumin 2.4 gm/dL (3.2-5.2); Albumin/Globulin Ratio 0.7 (1.0-2.3); Alkaline Phosphatase 109 U/L (39-117); Bilirubin,Direct < 0.2 mg/dL (<0.3); Bilirubin,Total 0.3 mg/dL (0.1-1.0); Blood Urea Nitrogen 18 mg/dL (8-23); Carbon Dioxide 27 mmol/L (22-30); Chloride 109 mmol/L (96-108); Globulin 3.4 gm/dL (2.2-3.7); Glomerular Filtration Rate 70; Glucose 99 mg/dL (70-105); Lactate Dehydrogenase 192 U/L (135-225); Phosphorous 2.4 mg/dL (2.5-4.5); Triglycerides 112 mg/dL (<150); Uric Acid 2.9 mg/dL (2.5-8.0)
[2020-12-26] MEDS: glipiZIDE 5 MG TABLET PO SCH (07:37)
[2020-12-26] MEDS: metFORMIN 500 MG TABLET PO SCH (07:37)
[2020-12-26] MEDS: INSULIN LISPRO 1 UNIT/0.01 ML UNIT SQ SCH ×2 (07:41→11:48)
--- NOTE | 2020-12-26 12:51 | Discharge Summary ---
Discharge Provider Provider Patient information: Note initiated : 12/26/20 at 12:43 pm Service Date, if different from initiated Date: [] Patient: Xenia Morgan 80 y/o F admitted on 12/24/20 for RLQ pain, n/v/d. Chief Complaint: [] Date of admission: 12/24/20 11:12 Discharge date: 12/26/20 Primary care physician: Wayne Bahena Admitting clinician: King Brown Attending physician on admission: King Brown Consults: 12/23/20 Consult to Physician [CONS] Stat Comment: Consulting Provider: King Brown Reason For Exam: Physician to Consult Attending physician on discharge: King Brown Discharging clinician: King Brown COURSE Hospital Course Hospital course: 80-year-old female who presented to the emergency room with a 5-day history of upper abdominal pain and nausea. CT showed an acutely inflamed gallbladder with pericholecystic fluid and stones. On 19 December 2020 laparoscopic cholecystectomy was attempted but it had to be performed open. She had acute gangrenous cholecystitis with perforation and pericholecystic abscess. Cholecystectomy was done and the patient has been on antibiotics. She is afebrile and has a normal white count. She is tolerating diet without difficulty. She does not have significant pain. Patient is stable for discharge home. Discharge diagnosis: Acute necrotizing cholecystitis Secondary discharge diagnosis: Gallbladder perforation with pericholecystic abscess Diabetes mellitus Reason for admission: Acute cholecystitis with sepsis Procedures: Open cholecystectomy with drainage of abscess Pertinent studies/significant findings: CT of abdomen and pelvis with contrast Complications: None Time Spent with Patient Time attestation: Total time spent providing and/or coordinating discharge services: Physical Examination Vital Signs Vital signs: Temp Pulse Resp BP Pulse Ox 96.8 F L 90 18 157/78 91 12/26/20 11:42 12/26/20 11:42 12/26/20 11:42 12/26/20 11:42 12/26/20 11:42 General physical appearance General physical exam: well developed, well nourished, no distress, moderate distress, moderate pain and chronically ill Eyes Eye exam: PERRL and normal ocular movement; negative icteric ENT ENT exam: normal mucosa and no hearing loss Head Head exam IM: Present atraumatic, normal inspection and normocephalic Neck Neck exam: no masses, no bruits, trachea midline, no lymphadenopathy and no venous distension Cardiovascular Cardiovascular exam IM: Present normal rate and rhythm, RRR, +S1 and +S2; Absent JVD and tachycardia Respiratory Respiratory exam: normal expansion, normal respiratory effort and clear to auscultation Abdomen Abdomen: Present tender (Right upper quadrant and epigastric region with guarding) Integumentary Integumentary: Present no rash and no growths Musculoskeletal Musculoskeletal: Present other (Altered gait due to foot ulcers and pain) Psychiatric Psychiatric: Present oriented to time, oriented to person, oriented to place, speech is normal and memory intact Discharge Plan Patient/Caregiver Discharge Instructions Activity: increase activity as tolerated Diet: Regular Diet and Low Fat Prescriptions: New clindamycin HCl 300 mg capsule 300 mg PO TID Qty: 30 RF: 0 Continued glipizide 5 MG tablet 5 mg PO BIDAC RF: 0 pregabalin 75 MG capsule 150 mg PO QPM RF: 0 metformin [Glumetza] 1,000 MG tablet,ER felipe.retention 24 hr 1,000 mg PO BID RF: 0 omeprazole 20 MG capsule 20 mg PO DAILY RF: 0 insulin detemir U-100 100 UNIT/ML solution 12 unit SQ HS Qty: 30 RF: 0 simvastatin 40 MG tablet 40 mg PO HS RF: 0 acetaminophen 325 MG tablet 650 mg PO BID RF: 0 jgixbjxo-agd-wxyy-FA-lutein 1 EACH tablet 1 each PO DAILY RF: 0 J1-Z4-C0-S0-I9-zilw-met-choln 118 ML liquid 118 ml PO DAILY RF: 0 insulin lispro 1 UNIT/0.01 ML unit 3 unit SQ BIDAC RF: 0 tramadol 50 MG tablet 50 mg PO Q6HP PRN (Reason: Pain) Qty: 20 RF: 0 Follow Up Plan Follow up with: King Brown MD [Physician] - 01/08/21 2:15 pm Wayne Bahena MD [Primary Care Provider] - Patient Disposition: Home, Self-Care Prognosis: Good Rehab Potential: Good I certify that the patient requires SNF services: No Overall status at discharge: patient is progressing back to baseline Pending Pending Pending: Resuscitation Status Full Code Diet Regular Diet Start Ariana Dec 25 0856 Acetaminophen (Acetaminophen 325 Mg Tablet) 650 mg PO Q4HP PRN; Protocol PRN Reason: Per Pain Protocol Last Admin: 12/25/20 20:17 Dose: 650 mg Documented by: Admin: 12/25/20 15:53 Dose: 650 mg Documented by: CARMEL Diagnostic Test (Pha) (Accu-Chek 1 Each Strip) 1 each FS ACHS [facility] Last Admin: 12/26/20 11:48 Dose: 1 each Documented by: Admin: 12/26/20 07:40 Dose: 1 each Documented by: Admin: 12/25/20 20:18 Dose: 1 each Documented by: Admin: 12/25/20 16:51 Dose: 1 each Documented by: CARMEL Glipizide (Glipizide 5 Mg Tablet) 5 mg PO BIDAC [facility] Last Admin: 12/26/20 07:37 Dose: 5 mg Documented by: Admin: 12/25/20 16:52 Dose: 5 mg Documented by: Admin: 12/25/20 07:48 Dose: 5 mg Documented by: Admin: 12/24/20 17:53 Dose: 5 mg Documented by: RADAMES Hydromorphone HCl (Hydromorphone 0.5 Mg/0.5 Ml Syringe) 0.5 mg IV Q2HP PRN; Protocol PRN Reason: Per Pain Protocol Last Admin: 12/25/20 03:40 Dose: 0.5 mg Documented by: Admin: 12/24/20 22:34 Dose: 0.5 mg Documented by: Admin: 12/24/20 16:42 Dose: 0.5 mg Documented by: RADAMES Sodium Chloride (Sodium Chloride 0.9%) 1,000 mls @ 150 mls/hr IV .Q6H40M [facility] Last Admin: 12/26/20 09:51 Dose: 150 mls/hr Documented by: Infusion: 12/26/20 09:50 Dose: 0 mls/hr Documented by: Admin: 12/26/20 04:42 Dose: Not Given Documented by: Admin: 12/26/20 02:55 Dose: 150 mls/hr Documented by: Infusion: 12/26/20 01:38 Dose: 150 mls/hr Documented by: Admin: 12/26/20 01:00 Dose: Not Given Documented by: Admin: 12/25/20 18:57 Dose: 150 mls/hr Documented by: Infusion: 12/25/20 17:56 Dose: 150 mls/hr Documented by: Admin: 12/25/20 11:15 Dose: 150 mls/hr Documented by: [email or web address] Infusion: 12/25/20 11:15 Dose: 0 mls/hr Documented by: [email or web address] Admin: 12/25/20 03:46 Dose: 150 mls/hr Documented by: [email or web address] Infusion: 12/25/20 03:46 Dose: 150 mls/hr Documented by: [email or web address] Infusion: 12/25/20 00:57 Dose: 150 mls/hr Documented by: [email or web address] Admin: 12/24/20 20:30 Dose: Not Given Documented by: [email or web address] Infusion: 12/24/20 20:25 Dose: 0 mls/hr Documented by: [email or web address] Admin: 12/24/20 16:41 Dose: 150 mls/hr Documented by: RADAMES Piperacillin Sod/Tazobactam (Sod 3.375 gm/ Dextrose) 50 mls @ 100 mls/hr IV Q6H SEJAL; Protocol Last Admin: 12/26/20 11:48 Dose: 100 mls/hr Documented by: [email or web address] Infusion: 12/26/20 06:20 Dose: 0 mls/hr Documented by: [email or web address] Admin: 12/26/20 05:43 Dose: 100 mls/hr Documented by: Infusion: 12/26/20 00:21 Dose: 100 mls/hr Documented by: Admin: 12/25/20 23:51 Dose: 100 mls/hr Documented by: Infusion: 12/25/20 17:56 Dose: 100 mls/hr Documented by: Admin: 12/25/20 17:26 Dose: 100 mls/hr Documented by: [email or web address] Infusion: 12/25/20 12:40 Dose: 0 mls/hr Documented by: [email or web address] Admin: 12/25/20 11:57 Dose: 100 mls/hr Documented by: [email or web address] Infusion: 12/25/20 07:49 Dose: 0 mls/hr Documented by: [email or web address] Admin: 12/25/20 06:04 Dose: 100 mls/hr Documented by: [email or web address] Infusion: 12/25/20 01:27 Dose: 100 mls/hr Documented by: [email or web address] Admin: 12/25/20 00:57 Dose: 100 mls/hr Documented by: Infusion: 12/24/20 20:00 Dose: 100 mls/hr Documented by: Admin: 12/24/20 19:30 Dose: 100 mls/hr Documented by: Infusion: 12/24/20 15:21 Dose: 0 mls/hr Documented by: Admin: 12/24/20 14:51 Dose: 100 mls/hr Documented by: RADAMES Insulin Human Lispro (Insulin Lispro 1 Unit/0.01 Ml Unit) 0 unit SQ ACHS [facility]; Protocol Last Admin: 12/26/20 11:48 Dose: 4 unit Documented by: Admin: 12/26/20 07:41 Dose: Not Given Documented by: Admin: 12/25/20 20:23 Dose: Not Given Documented by: Admin: 12/25/20 17:10 Dose: 2 unit Documented by: CARMEL Metformin HCl (Metformin 500 Mg Tablet) 1,000 mg PO BIDCC [facility] Last Admin: 12/26/20 07:37 Dose: 1,000 mg Documented by: Admin: 12/25/20 16:52 Dose: 1,000 mg Documented by: Admin: 12/25/20 07:48 Dose: 1,000 mg Documented by: Admin: 12/24/20 17:53 Dose: 1,000 mg Documented by: RADAMES Pregabalin (Pregabalin 150 Mg Capsule) 150 mg PO QPM [facility] Last Admin: 12/25/20 20:18 Dose: 150 mg Documented by: Admin: 12/24/20 21:01 Dose: 150 mg Documented by: ROHIT Sodium Chloride (0.9 % Sodium Chloride 10 Ml Syringe) 10 ml IV Q8 [facility] Last Admin: 12/26/20 04:42 Dose: Not Given Documented by: Admin: 12/25/20 20:18 Dose: Not Given Documented by: Admin: 12/25/20 13:49 Dose: Not Given Documented by: Admin: 12/25/20 06:04 Dose: Not Given Documented by: Admin: 12/24/20 22:35 Dose: Not Given Documented by: Admin: 12/24/20 15:11 Dose: Not Given Documented by: RADAMES Shift Summary 12/26/20 01:54 Shift Summary by Katy Trent pt is A&Ox4 and able to make needs known. Up with 1 assist, FWWWALTER. Pt has an deformed/swollen left foot with wounds covered in mepilex from a previous surgery. pt pivot transfers to the commode and is unable to ambulate lengths due to her injury. pt with midline incision to abdomen with one lap site above and scant serousanguinous drainage. CECILE to the right with sanguinous drainage. IV to the RFA with NS at 150 ml/hr. tolerates a regular diet with no nausea. Accuchecks AC and HS, last was 99 and no coverage needed. antiembolism stocking in place. Manages pain with tylenol, given x1 with good effect. pt voiding adequately, wears own pull ups for occasional incontinence. will update at bedside. *pt states she wishes to be a DNR. Initialized on 12/26/20 01:54 - END OF NOTE
--- NOTE | 2020-12-26 14:56 | Operative Note ---
DATE OF OPERATION: 12/24/2020 POSTOPERATIVE DIAGNOSIS: Acute cholecystitis with cholelithiasis. POSTOPERATIVE DIAGNOSIS: Acute gangrenous cholecystitis with perforation and cholelithiasis. PROCEDURE: Open cholecystectomy. SURGEON: King Brown M.D. FINDINGS: Acute severe inflammation of the gallbladder with necrosis of the wall and perforation, large pericholecystic abscess with containment by transverse colon, right colon and omentum. DESCRIPTION OF PROCEDURE: Under general anesthesia, the patient's abdomen was prepped and draped in the sterile field. A timeout procedure was carried out as per protocol. Supraumbilical incision was made and Veress needle was inserted. Abdomen was insufflated with 3 liters of CO2. A 12 mm port was placed. Laparoscope was placed. There were severe inflammatory adhesions in the right upper quadrant. Under videoscopic guidance, a 12 mm port and two 5 mm ports were placed in the right subcostal region. Using blunt dissection, the adhesions to the peritoneum were taken down. While this was being carried out, a large abscess cavity was entered. This fluid was cultured. There was severe inflammation involving the transverse colon, the right colon and omentum. The cecum was elevated into the right upper quadrant, and the omentum was also elevated in the right upper quadrant. Once the transverse colon was elevated, it created a large pocket of purulent drainage. Some of this was suctioned and sent for cultures. Irrigation was carried out. Using blunt dissection, the gallbladder was dissected free. The gallbladder was extremely necrotic and had multiple areas of full wall necrosis that could be punctured with the blunt dissector. A large volume of pus exuded from the gallbladder. With all of this inflammation, it was felt that it was not safe to proceed with a laparoscopic procedure, so the laparoscopic instruments were removed. Sponge and needle count was carried out. Upper midline incision was made. The abdomen was packed off and a Revloc retractor was placed. The omentum and transverse colon was from the gallbladder using blunt dissection. The folded right colon was inspected, and it was apparent that the appendix was not removed. Since the right colon was so mobile, an appendectomy was carried out using a TA 30 stapler. The cecum was then positioned in the right lower quadrant. Using blunt dissection, the gallbladder was from the infrahepatic bed. The wall was perforated in multiple areas and the posterior wall was totally necrotic. In spite of the necrosis, most of the posterior wall was removed. The dissection was continued down to the cystic artery and cystic duct. Cystic duct was clamped with two right angle clamps and divided. Cystic artery was clamped with five clips and divided. Cystic duct was tied with 2-0 silk ties and clipped. Copious irrigation was carried out. Drain was placed in the subhepatic space and brought out through the lateral port site. Sponge, needle, instrument, and blade counts were verified as correct. The fascia was closed with running #1 Prolene. Subcutaneous tissue was irrigated and closed with 2-0 Monocryl. Midline incision was closed with destiny. The supraumbilical insertion site fascia was closed with interrupted 0 Vicryl. All skin incisions were closed with destiny. The drain was secured with 2-0 nylon. The patient tolerated the procedure well. Tegaderm dressing was placed. She was awakened, transferred to a bed, and taken to the postanesthetic care unit in satisfactory condition. LCS:grace Job ID: [id number] Doc ID: [id number] King Brown M.D.
== END 2020-12-26 14:20 | disposition home or self-care (01) | DRG 414 ==
LOC: ED 14:45 → MEDSUR 14:45
PROVIDERS: ADMIT Family Medicine Adult Medicine; ATTEND Family Medicine Adult Medicine